=== PATIENT | male | born 1955 | race Two or more races ===

== ENCOUNTER 2017-10-23 14:54 | Emergency (ER) | payer OTHER ==
[~2017-10-23] VITALS: Ht 180.3 cm; Wt 88.5 kg
[~2017-10-23 14:54] MED LIST: ASPI-630 PO; CARV3.12 PO; GABA-586 PO; GLYB5TAB3 PO; LISI-338 PO; METF10003 PO; SIMV20TA PO
[2017-10-23 15:50] VITALS: BP 154/80
--- NOTE | 2017-10-23 16:12 | PHYS DOC ---
Past Medical History Past Medical History: Diabetes-Type II, High Cholesterol, Heart Disease, [place] Additional Past Medical Histor: Neuropathy Past Surgical History: Coronary Bypass Surgery Alcohol Use: None Drug Use: None Adult General Chief Complaint Chief Complaint: LOWER EXT PAIN HPI HPI Patient is a 61 year old M who presents with bilateral leg pain with exertion for months. Patient reports his pain is worsening. He gets pain after walking only about 100 ft. He rests and the pain resolves completely. When he walks again, the pain returns. He reports he is seen at the [facility] in [place]. They started him on a medication called pentoxifylline several months ago. He reports no improvement with medications. He states he is having trouble working d/t pain. He denies cp or sob. Hx of DM and HTN. Review of Systems Review of Systems Constitutional: Denies fever or chills [] Respiratory: Denies cough or shortness of breath [] Cardiovascular: Denies chest pain Musculoskeletal: Denies back pain. Bilateral leg pain when walking Integument: Denies rash or skin lesions [] Neurologic: Denies headache, focal weakness. Bilateral numbness to the great toe on both feet All other systems were reviewed and found to be within normal limits, except as documented in this note. Allergies Allergies Allergies Coded Allergies Type Severity Reaction Last Updated Verified No Known Drug Allergies 01/02/15 No Physical Exam Physical Exam Constitutional: Well developed, well nourished, no acute distress, non-toxic appearance. [] HENT: Normocephalic, atraumatic Neck: Normal range of motion, no tenderness, supple, no stridor. [] Cardiovascular:Heart rate regular rhythm, no murmur [] Lungs & Thorax: Bilateral breath sounds clear to auscultation [] Skin: Warm, dry, no erythema, no rash. [] Extremities: No tenderness, ROM intact, no edema. [] Neurologic: Alert and oriented X 3, normal motor function, no focal deficits noted. [] Psychologic: Affect normal, judgement normal, mood normal. [] Current Patient Data Vital Signs Vital Signs Date Time Temp Pulse Resp B/P (MAP) Pulse Ox O2 Delivery O2 Flow Rate FiO2 10/23/17 15:50 98.5 95 16 154/80 (104) 98 Room Air 98.5 EKG EKG [] Radiology/Procedures Radiology/Procedures [] Course & Med Decision Making Course & Med Decision Making Pertinent Labs and Imaging studies reviewed. (See chart for details) No indication for acute evaluation at this time. Patient needs referral to cardiology for intermittent claudication. d/w Dr. Macdonald, happy to see patient in the clinic for evaluation. Plan: appt with Dr. Macdonald on Thu10/28/17 at 10:15am, return precautions reviewed Dragchristin Disclaimer Dragon Disclaimer This electronic medical record was generated, in whole or in part, using a voice recognition dictation system. Departure Departure Impression: Primary Impression: Leg pain, bilateral Disposition: 01 HOME, SELF-CARE Condition: GOOD Referrals: KWAME MACDONALD MD Patient Instructions: Intermittent Claudication Additional Instructions: You have an appointment scheduled with Dr. Macdonald at 10:15am on ThursdayOctober 28. FRANK THAKKAR APRN Oct 23, 2017 16:12
== END 2017-10-23 16:21 | disposition home or self-care (01) ==
LOC: ER 14:54
DX: M79.605 Pain in left leg (principal); M79.604 Pain in right leg; R20.0 Anesthesia of skin; E78.00 Pure hypercholesterolemia, unspecified; E11.40 Type 2 diabetes mellitus with diabetic neuropathy, unspecified; I51.9 Heart disease, unspecified; I25.2 Old myocardial infarction; Z95.1 Presence of aortocoronary bypass graft
CPT/HCPCS: 99281

== ENCOUNTER 2017-11-05 06:21 | Outpatient (CLI) | payer OTHER ==
[2017-11-05] VITALS (14 sets, daily range): BP systolic 107–147; BP diastolic 63–79
[~2017-11-05] VITALS: Ht 182.9 cm; Wt 90.7 kg
[~2017-11-05 06:21] MED LIST changes: -METF10003 PO; +METF10007 PO
[2017-11-05] MEDS ORDERED: PENT400T4 PO (06:50)
[2017-11-05] MEDS ORDERED: GLIP10TA13 PO (06:50)
[2017-11-05] MEDS ORDERED: SITA1TAB11 PO (06:50)
[2017-11-05] MEDS ORDERED: DULO30CA2 PO (06:50)
[2017-11-05] MEDS ORDERED: LISI10TA2 PO (06:51)
[2017-11-05] MEDS ORDERED: IV NORMAL SALINE 1000ML BAG 1,000 ML IV SCH (07:00)
[2017-11-05] MEDS ORDERED: LIDOCAINE 1% PF 30 ML VIAL. ONE (07:11)
[2017-11-05] MEDS ORDERED: IODIXANOL 320 MG/ML 100 ML VIAL. ONE (07:11)
[2017-11-05 07:14] LABS: HEMATOCRIT 42.4 % (39.0-53.0); HEMOGLOBIN 14.4 g/dL (13.0-17.5); RED BLOOD COUNT 4.8 x10^6/uL (4.30-5.70); RED CELL DISTRIBUTION WIDTH 14.1 % (11.5-14.5); WHITE BLOOD COUNT 7.2 x10^3/uL (4.0-11.0)
[2017-11-05 07:24] LABS: CALCIUM 8.6 mg/dL (8.5-10.1); CREATININE 1.1 mg/dL (0.7-1.3); GFR 68.5; POTASSIUM 4.8 mmol/L (3.5-5.1)
[2017-11-05 07:33] LABS: PROTHROMBIN TIME PATIENT 12.8 SEC (11.7-14.0)
[2017-11-05] MEDS ORDERED: MIDAZOLAM HCL/PF 2 MG/2 ML VIAL. ONE (08:16)
[2017-11-05] MEDS ORDERED: fentaNYL PF VIAL 100 MCG/2 ML VIAL ONE (08:16)
[2017-11-05] MEDS ORDERED: CONTRAST GIVEN. MC PRN (08:45)
[2017-11-05] MEDS ORDERED: fentaNYL PF VIAL 100 MCG/2 ML VIAL IV ONE (08:45)
[2017-11-05] MEDS ORDERED: LIDOCAINE 1% PF 30 ML VIAL. INJ ONE (08:45)
[2017-11-05] MEDS ORDERED: MIDAZOLAM HCL/PF 2 MG/2 ML VIAL. IV ONE (08:45)
[2017-11-05] MEDS ORDERED: IODIXANOL 320 MG/ML 100 ML VIAL. IART ONE (08:45)
[2017-11-05] MEDS ORDERED: HEPARIN for IV BOLUS 10,000 UNIT/10 ML VIAL. ONE (08:48)
[2017-11-05] MEDS ORDERED: HEPARIN for IV BOLUS 10,000 UNIT/10 ML VIAL. IV ONE (09:15)
--- NOTE | 2017-11-05 10:31 | CARD ---
MR#: [id number] Date of Study: 11/05/2017 Ordering Physician: KWAME MACDONALD, Referring Physician: KWAME MACDONALD, Tech: RT Tish (R) APPROVED REPORT Technologist: RT Tish (R) Nurse: Krista Anton RN Procedure(s) performed: 60 MINS SEDATION Aortogram with bilateral femoral run-off HISTORY : The patient is a 61 year-old femalemale with a history of . INDICATION The indication(s) include : significant bilateral claudication (left greater than right) that is life style limting. . PROCEDURE NARRATIVE After appropriate informed consent, the patient was brought to the clay processing labourer and placed in the supine position. Preprocedural timeout was completed and confirmed the right patient and procedure. The bila teral groins were prepped and draped in usual sterile fashion. Moderate sedation acheived with Fentan yl and Versed. The patient received 2000 units of Heparin for anticoagulation. Access: Under lidocaine local anesthesia, a 5Fr introducer sheath was placed in the RCFA via the vonnie fied seldinger technique with a J-tipped guidewire and an 18g needle. Diagnostic angiography was then performed using a 5Fr Omniflush catheter with digital subtraction angiography. Next, the contralater al (LCFA) was accessed with the aid of the Omniflush catheter and a J-tipped guidewire. The omniflush was then exchanged for a long angled glide catheter which was then placed in the RCFA. Repeat left l ower extremity with DSA was performed. Subsequently, the glidecatheter was used to do a pullback luna uver on the YAHIR stenosis. No significant stenosis was identified at the levels of the common iliac a rteries and the left internal iliac artery. FINDINGS: AO: 140/80 AORTA: No significant disease. RCIA: No significant disease. REIA: No significant disease. RIIA: has a proximal 70% stenosis. This is the dominant supply of the right lower extremity as it exi ts the pelvis and supplies the territory of the SFA and connects to the popliteal artery. RCFA: No significant disease. RSFA: No significant disease. The vessel is hypoplastic and terminates at the level of the adductor c anal. RPOP: No significant disease. RAT: Occluded. RTP trunk: Mild irregularities of up to 30%. RPT: No significant disease. RPER: No significant disease. LCIA: No significant disease. LIIA: Has a proximal 50% eccentric stenosis. This is the main arterial supply to the lower extremity and exits the pelvis and connects to the popliteal artery. There is a 100% MANAGER CORPORATE RESPONSIBILITY involving the vessel p rior to the popliteal connection. YAHIR: No significant disease. LCFA: No significant disease. LSFA: No significant disease. This vessel is hypoplastic and gives geniculate level collaterals to th e popliteal artery. LPOP: No significant disease. LTP: Moderate 50% stenosis. LPER: No significant disease. LPT: No significant disease. LAT: Occluded proximally. At case completion, the right sided sheath was removed via manual compression. The patient tolerated the procedure well and there were no immediate complications. Conclusion 1. 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 Anatomical variant with the internal iliac artery providing the major arterial supply to the legs bilaterally. The SFA is severely hypoplastic. 3. 100% MANAGER CORPORATE RESPONSIBILITY of the L internal iliac artery (SFA) in the mid thigh with collaterals from the hypoplast ic LSFA with reconstitution at the level of P2. Recommendations 1. Vascular surgery evaluation for bypass of the left "SFA" 2. Plan for staged PVI of the right internal iliac artery via endovascular techniques. 3. Discussed with Dr. Seaman. Signed by : Kwame Macdonald, Electronically Approved : 11/05/2017 10:30:37
== END 2017-11-05 14:00 | disposition home or self-care (01) ==
LOC: CCL 06:21
PROVIDERS: ATTEND Internal Medicine Cardiovascular Disease
DX: I70.213 Atherosclerosis of native arteries of extremities with intermittent claudication, bilateral legs (principal); Z79.01 Long term (current) use of anticoagulants
CPT/HCPCS: 36246; 36415; 75630; 80048; 85027; 85610; 85730; 99152; 99153; C1769; J1644; J2250; J3010; J7030; Q9967

== ENCOUNTER 2017-12-26 10:25 | Emergency (ER) | payer SELFPAY ==
[~2017-12-26] VITALS: Ht 175.3 cm; Wt 90.3 kg
[~2017-12-26 10:25] MED LIST changes: +DULO30CA2 PO; +GLIP10TA13 PO; +LISI10TA2 PO; +PENT400T4 PO; +SITA1TAB11 PO
[2017-12-26] MEDS ORDERED: CLIN150C14 PO (11:02)
[2017-12-26] MEDS ORDERED: NEOMY/BACITR/POLYMYXIN OINT PACKET. TP ONE (11:15)
[2017-12-26] MEDS ORDERED: CLINDAMYCIN HCL 150 MG CAPSULE. PO ONE (11:30)
--- NOTE | 2017-12-26 11:30 | PHYS DOC ---
Past Medical History Past Medical History: Diabetes-Type II, High Cholesterol, Heart Disease, [place] Additional Past Medical Histor: Neuropathy Past Surgical History: Coronary Bypass Surgery Additional Past Surgical Histo: FEMORAL POPITEAL BYPASS Alcohol Use: None Drug Use: None Adult General Chief Complaint Chief Complaint: POST-OP PROBLEM HPI HPI Patient is a 62 year old male who presents with post-op complication. The patient underwent a femoral popliteal bypass on Dec 04. He has been recovering well. He presents to the ER today however with some drainage and redness at the surgical site in the left groin. Patient denies numbness, tingling, or cold sensation in that extremity. He hasn't had a fever or chills. He does not complain of pain. The wound on the leg and the left extremity is well-healing according to the patient. Surgery completed by Dr. Rockwell. Review of Systems Review of Systems Constitutional: Denies fever or chills Eyes: Denies Respiratory: Denies cough Cardiovascular: No additional information not addressed in HPI GI: Denies abdominal pain Musculoskeletal: Denies back pain Integument: Denies rash or skin lesions Neurologic: Denies headache All other systems were reviewed and found to be within normal limits, except as documented in this note. Current Medications Current Medications Current Medications Medications (Trade) Dose Ordered Sig/Keny Start Time Stop Time Status Last Admin Dose Admin Clindamycin HCl (Cleocin) 600 mg 1X ONCE 12/26/17 11:30 12/26/17 11:31 DC 12/26/17 11:29 600 MG Neomycin/ Polymyxin/ Bacitracin (Triple Antibiotic Ointment) 2 pkt 1X ONCE 12/26/17 11:15 12/26/17 11:16 DC 12/26/17 11:15 2 PKT Allergies Allergies Allergies Coded Allergies Type Severity Reaction Last Updated Verified No Known Drug Allergies 11/30/17 No Physical Exam Physical Exam Constitutional: Well developed, well nourished, no acute distress, non-toxic appearance HENT: Normocephalic Neck: Normal range of motion Cardiovascular:Heart rate regular rhythm, no murmur Lungs & Thorax: Bilateral breath sounds clear to auscultation Abdomen: Bowel sounds normal, soft, no tenderness Skin: Warm, dry, no erythema, no rash Extremities: surgical incision on medial left leg is well-appearing. wound edges are well-approximated. no local swelling, erythema, drainage. Incision in left groin is mildly erythematous. there is about 1 cm area of dehiscence at the proximal end of the incision with some purulent drainage overlying granulation tissue. the rest of the incision is erythematous and surrounding skin, but no palpable fluctuance. 2+ pulses in femoral, dorsalis pedis. Skin with brisk capillary refill and sensation to light touch intact. Compartments of the leg are soft. Neurologic: Alert and oriented X 3 Psychologic: Affect normal Current Patient Data Vital Signs Vital Signs Date Time Temp Pulse Resp B/P (MAP) Pulse Ox O2 Delivery O2 Flow Rate FiO2 12/26/17 11:40 80 16 158/80 (106) 100 Room Air 12/26/17 10:42 97.7 97.7 EKG EKG [] Radiology/Procedures Radiology/Procedures [] Course & Med Decision Making Course & Med Decision Making Pertinent Labs and Imaging studies reviewed. (See chart for details) Patient is evaluated for postoperative complication of an incision in the left groin. Examination of the incision as documented above is suspicious for local incisional infection. Patient does not have a fever. His vital signs are normal. He is nontoxic. He denies any other complaints. There is no drainable fluid collection on examination today. In the ER, a swab is taken for culture. The patient is given clindamycin. Wound is dressed with Neosporin and gauze. I did discuss this patient with the vascular surgeon on-call and these were the recommendations. The patient will contact their office on Thursday and will have an expedited appointment. I advised patient to come back to the ER over the weekend if his symptoms severely worsen. Dragon Disclaimer Dragon Disclaimer This electronic medical record was generated, in whole or in part, using a voice recognition dictation system. Departure Departure Impression: Primary Impression: Superficial incisional infection of surgical site Disposition: HOME, SELF-CARE Condition: GOOD Referrals: NO PCP (PCP) TOPHER ROCKWELL DO Patient Instructions: Wound Infection, [id number], Wound Dehiscence, Easy-to- Read Additional Instructions: You have a minor infection of your surgical incision. Take the antibiotics as directed. Today, we made contact with Dr. Maurice's partner, Dr. Zamudio, who recommended you call the office Thursday and they will expedite your appointment. If your wound becomes severely worse prior to Thursday, return to the ER. Keep the wound covered and apply antibacterial ointment twice daily. Scripts Clindamycin Hcl (CLINDAMYCIN HCL) 150 Mg Capsule 1 CAP PO QID, #40 CAP Prov: TAMMIE VALDEZ DO 12/26/17 TAMMIE VALDEZ DO Dec 26, 2017 11:30
[2017-12-26 11:40] VITALS: BP 158/80
== END 2017-12-26 11:28 | disposition home or self-care (01) ==
LOC: ER 10:25
DX: T81.41XA Infection following a procedure, superficial incisional surgical site, initial encounter (principal); L53.8 Other specified erythematous conditions; E78.00 Pure hypercholesterolemia, unspecified; E11.40 Type 2 diabetes mellitus with diabetic neuropathy, unspecified; I25.2 Old myocardial infarction; Z95.1 Presence of aortocoronary bypass graft
CPT/HCPCS: 87071; 87075; 99284

== ENCOUNTER 2018-08-30 09:50 | Observation (INO) | payer BC ==
[~2018-08-30] VITALS: Ht 177.8 cm; Wt 88.5 kg
[2018-08-30] VITALS (12 sets, daily range): BP systolic 119–151; BP diastolic 60–77
[~2018-08-30 09:50] MED LIST changes: +CLIN150C14 PO; -GABA-586 PO; +GABA300C18 PO; -PENT400T4 PO; +PENT400T7 PO
[2018-08-30] MEDS ORDERED: MUPI22OI2 TP (10:15)
[2018-08-30] MEDS ORDERED: SILD100T PO (10:15)
[2018-08-30] MEDS ORDERED: NYST15PO9 TP (10:15)
[2018-08-30] MEDS ORDERED: GABA800T5 PO (10:15)
[2018-08-30] MEDS ORDERED: LISI-334 PO (10:15)
[2018-08-30] MEDS ORDERED: ATORVASTATIN CA80 MG PO (10:15)
[2018-08-30 10:31] LABS: CALCIUM 8.6 mg/dL (8.5-10.1); CREATININE 1.8 mg/dL (0.7-1.3); GFR 38.7; POTASSIUM 4.5 mmol/L (3.5-5.1)
[2018-08-30 10:37] LABS: ALBUMIN 3.4 g/dL (3.4-5.0); ALBUMIN/GLOBULIN RATIO 0.9 (1.0-1.7); TOTAL BILIRUBIN 0.5 mg/dL (0.2-1.0); TOTAL PROTEIN 7.2 g/dL (6.4-8.2)
[2018-08-30 10:41] LABS: BASO # 0.1 x10^3/uL (0.0-0.2); BASO % 1 % (0-3); EOS # 0.2 x10^3/uL (0.0-0.7); EOS % 3 % (0-3); HEMATOCRIT 41.6 % (39.0-53.0); HEMOGLOBIN 13.8 g/dL (13.0-17.5); LYMPH # 2.3 x10^3/uL (1.0-4.8); LYMPH % 30 % (24-48); MEAN CORPUSCULAR HEMOGLOBIN 29 pg (25-35); MEAN CORPUSCULAR HGB CONC 33 g/dL (31-37); MEAN CORPUSCULAR VOLUME 87 fL (79-100); MONO # 0.7 x10^3/uL (0.0-1.1); MONO % 9 % (0-9); NEUT # 4.6 x10^3uL (1.8-7.7); NEUT % 58 % (31-73); PLATELET COUNT 255 x10^3/uL (140-400); PROTHROMBIN TIME PATIENT 12.3 SEC (11.7-14.0); RED BLOOD COUNT 4.76 x10^6/uL (4.30-5.70); WHITE BLOOD COUNT 7.9 x10^3/uL (4.0-11.0)
[2018-08-30] MEDS ORDERED: IV NORMAL SALINE 1000ML BAG 1,000 ML IV ONE (11:15)
[2018-08-30] MEDS ORDERED: LIDOCAINE 1% Multi-Dose 20 ML VIAL. ONE (12:20)
[2018-08-30] MEDS ORDERED: IODIXANOL 320 MG/ML 100 ML VIAL. ONE (12:20)
[2018-08-30] MEDS ORDERED: fentaNYL PF VIAL 100 MCG/2 ML VIAL ONE (13:42)
[2018-08-30] MEDS ORDERED: MIDAZOLAM HCL/PF 5 MG/5 ML VIAL. ONE (13:42)
[2018-08-30] MEDS ORDERED: HEPARIN for IV BOLUS 10,000 UNIT/10 ML VIAL. ONE (13:43)
[2018-08-30] MEDS ORDERED: MIDAZOLAM HCL/PF 5 MG/5 ML VIAL. IV ONE (14:00)
[2018-08-30] MEDS ORDERED: LIDOCAINE 1% Multi-Dose 20 ML VIAL. INJ ONE (14:00)
[2018-08-30] MEDS ORDERED: IODIXANOL 320 MG/ML 100 ML VIAL. IART ONE (14:00)
[2018-08-30] MEDS ORDERED: fentaNYL PF VIAL 100 MCG/2 ML VIAL IV ONE (14:00)
[2018-08-30] MEDS ORDERED: HEPARIN for IV BOLUS 10,000 UNIT/10 ML VIAL. IV ONE (14:45)
[2018-08-30] MEDS ORDERED: CLOPIDOGREL BISULFATE 75 MG TABLET ONE (15:19)
[2018-08-30] MEDS ORDERED: CLOPIDOGREL BISULFATE 75 MG TABLET PO ONE (15:30)
--- NOTE | 2018-08-30 16:27 | NUR ---
Received report from LORENZA Evans laborer rags. Pt arrived to the unit at approx 1550. Checked the insertion site with the hand-off nurse, dressing clean, dry, and intact. Checked pedis pulses using a doppler, bilat pulses present. Cap refill < 3 seconds. Bilat lung sounds clear. Heartbeat regular, S1, S2. Skin clean, dry, intact. Pt reporting 0/10 pain. Pt was educated to remain flat with legs extended. Will continue to monitor pt.
--- NOTE | 2018-08-30 16:59 | PDOC ---
BRIEF OPERATIVE NOTE Date: Aug 30, 2018 Pre-Op Diagnosis Atherosclerosis with left lower extremity claudication Post-Op Diagnosis Same Procedure Performed CO2 angiogram with selective left lower extremity CO2 angiogram next Percutaneous balloon angioplasty of the left mid bypass graft using a drug- eluting balloon Ultrasound-guided access of the right common femoral artery Right common femoral artery Abebe close Surgeon Topher Reyes DO, FACS, RPVI Anesthesia Type: Local, Conscious Sedation Blood Loss 2mL Findings See dictation Complications None TOPHER REYES DO Aug 30, 2018 16:59
--- NOTE | 2018-08-30 17:11 | OP ---
DATE OF SURGERY: 08/30/2018 VASCULAR SURGERY OPERATIVE REPORT ATTENDING SURGEON: Arnulfo Rockwell DO PREOPERATIVE DIAGNOSIS: Atherosclerosis with left lower extremity claudication. POSTOPERATIVE DIAGNOSIS: Atherosclerosis with left lower extremity claudication. PROCEDURES: 1. Percutaneous endovascular balloon angioplasty of the left mid fem-pop bypass vein graft using a 6 x 40 Medtronic IN.PACT Admiral drug-eluting balloon (CPT code 37783). 2. CO2 abdominal aortogram (CPT code 89009-39). 3. Selective CO2 angiogram of the left lower extremity (CPT code 34623-33). 4. Ultrasound-guided access of the right common femoral artery (CPT code 38322-17). 5. Right common femoral artery StarClose. ANESTHESIA: Local with moderate sedation. SPECIMENS: None. COMPLICATIONS: None. TOTAL CONTRAST ADMINISTERED: 10 mL, the remainder was CO2. PREOPERATIVE INDICATIONS: The patient is a very pleasant 62-year-old male, who I had performed a left femoral to below knee popliteal artery bypass using in situ saphenous vein graft. The patient presented for routine followup and was found to have a high-grade stenosis of the mid bypass graft. The patient had preserved ALMA despite the stenotic area, but I felt that for graft preservation, it would be warranted to balloon this area. The patient was consented for angiography and he understood all risks, benefits, and alternatives prior to proceeding. OPERATIVE PROCEDURE: The patient was brought to the catheterization suite and placed in the supine position. After establishing adequate sedation, the right groin was prepped and draped in sterile fashion. Next, a timeout procedure was performed. It was confirmed that the patient's creatinine level was elevated at 1.8 and we had planned to use carbon dioxide for the majority of the procedure and images. At this point in time, using a sterile ultrasound probe, the right common femoral artery was directly visualized and then 1% lidocaine was infiltrated underneath the skin. Next, a micropuncture needle was used to access the right common femoral artery under direct ultrasound guidance. Following this, a microwire was inserted under fluoro guidance. Next, a small skin incision was made, needle was removed and a MicroSheath was inserted. Next, an 0.035 J-wire was inserted into the abdominal aorta under fluoro guidance. Following this, the MicroSheath was removed and a 5-[place] sheath was inserted and appropriately flushed. Next, the UF catheter was inserted into the abdominal aorta up to the level of L1 and then a CO2 abdominal aortogram was performed. The abdominal aortogram findings are as follows: The proximal, mid and distal aorta is widely patent. The right and left common iliac arteries are widely patent. There is a high takeoff of the left hypogastric artery just distal to the aortic bifurcation, which is widely patent. The external iliac artery is also widely patent down to the common femoral artery. Common femoral artery is widely patent and I can easily see the takeoff of the bypass graft. The left lower extremity arterial findings are as follows: The left common femoral artery is widely patent. The left profunda femoral artery is widely patent. The origin of the left bypass graft is patent at the common femoral artery. The bypass graft is widely patent through its proximal segment and there is a high-grade stenosis in its mid segment likely from a retained valve body. Beyond this, the vein graft is widely patent down to the below knee anastomosis, which is also widely patent. 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 The below knee runoff vessels are preserved and patent. At this point in time, our catheter was used to select the common iliac artery on the left and ultimately gain access to the external iliac artery. Following this, our 5-[place] sheath was exchanged for a 6-[place] straight destination sheath, which was positioned up and over the bifurcation. Next, the patient was heparinized per weight-based protocol. Following this, I was easily able to gain access to the proximal portion of the bypass graft with wire access. Next, I carefully crossed the very stenotic area when in the mid bypass graft and confirmed a true lumen access. Next, the stenotic area was predilated using a 4 x 40 balloon and then using a roadmap, I treated the lesion with a 6 x 40 drug-eluting balloon. This was inflated to nominal pressure and left in place for 3 minutes. Following this, completion angiogram revealed markedly improved flow through the segment. There was still some scar from the valve body, but brisk flow through the segment after ballooning. This was widely patent and there was no further waste on our balloon. I did decide to re-balloon this area with a 7 x 40 balloon just to ensure that I had adequately treated the area and indeed there was no waste on the 7 mm balloon after a nominal inflation. Satisfied with this result, our wires and catheters were withdrawn and the sheath was withdrawn into the right iliac system. The vessel was determined safe for closure based on CO2. We did inject a total of 10 mL of normal contrast, but the remainder of the pictures were performed using carbon dioxide gas. Next, our sheath was removed and the StarClose device was inserted and deployed successfully. The patient had excellent hemostasis and was transferred to the post-catheterization area in stable condition. ARNULFO ROCKWELL DO DR: JC/ny JOB#: [id number] / [id number]
[2018-08-30] MEDS ORDERED: CLOP75TA PO (18:28)
--- NOTE | 2018-08-30 18:41 | PDOC1 ---
History and Physical Date of Admission Date of Admission DATE: 08/30/18 TIME: 18:36 Identification/Chief Complaint Chief Complaint CTA runoff observation Source Source: Chart review, Patient History of Present Illness History of Present Illness 62 year old with PVD admitted for observation following CTA runoff.Has hx Atherosclerosis with left lower extremity claudication and underwent Percutaneous endovascular balloon angioplasty of the left mid fem-pop bypass vein graft. patient seen on floor with no complaints. no bleeding at catheter site. started on plavix and all home meds resumed. Past Medical History Cardiovascular: CAD, HTN, Other Pulmonary: No pertinent hx CENTRAL NERVOUS SYSTEM: Periperal neuropathy GI: GERD Heme/Onc: No pertinent hx Hepatobiliary: No pertinent hx Psych: No pertinent hx Musculoskeletal: Other Rheumatologic: No pertinent hx Infectious disease: No pertinent hx Renal/: No pertinent hx Endocrine: Diabetes Past Surgical History Past Surgical History: CABG Family History Family History: Coronary Artery Disease Social History ALCOHOL: none Drugs: None Current Medications Current Medications Current Medications Sodium Chloride 1,000 ml @ 100 mls/hr 1X ONCE IV Last administered on 08/30/18at 11:00; Start 08/30/18 at 11:15; Stop 08/30/18 at 21:14 Iodixanol (Visipaque 320) 100 ml STK-MED ONCE .ROUTE ; Start 08/30/18 at 12:20; Stop 08/30/18 at 12:21; Status DC Lidocaine HCl (Lidocaine 1% 20ml Vial) 20 ml STK-MED ONCE .ROUTE ; Start 08/30/18 at 12:20; Stop 08/30/18 at 12:21; Status DC Heparin Sodium/ Sodium Chloride 500 ml @ As Directed STK-MED ONCE .ROUTE ; Start 08/30/18 at 12:20; Stop 08/30/18 at 12:21; Status DC Midazolam HCl (Versed) 5 mg STK-MED ONCE .ROUTE ; Start 08/30/18 at 13:42; Stop 08/30/18 at 13:43; Status DC Fentanyl Citrate (Fentanyl 2ml Vial) 100 mcg STK-MED ONCE .ROUTE ; Start 08/30/18 at 13:42; Stop 08/30/18 at 13:43; Status DC Heparin Sodium (Porcine) (Heparin Sodium) 10,000 unit STK-MED ONCE .ROUTE ; Start 08/30/18 at 13:43; Stop 08/30/18 at 13:44; Status DC Heparin Sodium/ Sodium Chloride (HEPARIN for ARTERIAL LINE FLUSH) 1,000 unit 1X ONCE IART Last administered on 08/30/18at 15:31; Start 08/30/18 at 14:00; Stop 08/30/18 at 14:01; Status DC Midazolam HCl (Versed) 5 mg 1X ONCE IV Last administered on 08/30/18at 15:32; Start 08/30/18 at 14:00; Stop 08/30/18 at 14:01; Status DC Fentanyl Citrate (Fentanyl 2ml Vial) 100 mcg 1X ONCE IV Last administered on 08/30/18at 15:32; Start 08/30/18 at 14:00; Stop 08/30/18 at 14:01; Status DC Iodixanol (Visipaque 320) 100 ml 1X ONCE IART Last administered on 08/30/18at 15:31; Start 08/30/18 at 14:00; Stop 08/30/18 at 14:01; Status DC Lidocaine HCl (Lidocaine 1% 20ml Vial) 20 ml 1X ONCE INJ Last administered on 08/30/18at 15:31; Start 08/30/18 at 14:00; Stop 08/30/18 at 14:01; Status DC Heparin Sodium/ Sodium Chloride 500 ml @ As Directed STK-MED ONCE .ROUTE ; Start 08/30/18 at 14:21; Stop 08/30/18 at 14:22; Status DC Heparin Sodium (Porcine) (Heparin Sodium) 8,000 unit 1X ONCE IV Last administered on 08/30/18at 15:35; Start 08/30/18 at 14:45; Stop 08/30/18 at 14 :46; Status DC Clopidogrel Bisulfate (Plavix) 300 mg 1X ONCE PO Last administered on 08/30/18at 15:32; Start 08/30/18 at 15:30; Stop 08/30/18 at 15:31; Status DC Clopidogrel Bisulfate (Plavix) 75 mg STK-MED ONCE .ROUTE ; Start 08/30/18 at 15:19; Stop 08/30/18 at 15:20; Status DC Clopidogrel Bisulfate (Plavix) 75 mg DAILYWBKFT PO ; Start 08/31/18 at 08:00 Active Scripts Active Clopidogrel (Clopidogrel Bisulfate) 75 Mg Tablet 75 Mg PO DAILYWBKFT 30 Days Reported Viagra (Sildenafil Citrate) 100 Mg Tablet 1 Tab PO PRN DAILY Nystatin 15 Gm Powder 1 [place] TP BID Mupirocin Ointment (Mupirocin) 22 Gm Oint...g. 1 [place] TP DAILY Lisinopril 20 Mg Tablet 1 Tab PO DAILY Gabapentin 800 Mg Tablet 800 Mg PO Q8HRS Atorvastatin Calcium 80 Mg Tablet 1 Tab PO DAILY Janumet 50-1,000 Mg Tablet (Sitagliptin Phos/Metformin Hcl) 1 Each Tablet 1 Tab PO BID Pentoxifylline 400 Mg Tablet.er 400 Mg PO TID Cymbalta (Duloxetine Hcl) 30 Mg Capsule.dr 30 Mg PO QHS Glipizide 10 Mg Tablet 1 Tab PO BID Aspirin 81 Mg Tab.chew 1 Tab PO DAILY Allergies Allergies: Coded Allergies: No Known Drug Allergies (Unverified , 11/30/17) ROS Review of System CONSTITUTIONAL: No fever or chills EYES: No recent changes SKIN: No rash or itching CARDIOVASCULAR: No chest pain, syncope, palpitations, or edema RESPIRATORY: No SOB or cough GASTROINTESTINAL: No nausea, vomiting or abdominal pain NEUROLOGICAL: No headaches or weakness ENDOCRINE: No cold or heat intolerance GENITOURINARY: No urgency or frequency of urination MUSCULOSKELETAL: No back pain or joint pain LYMPHATICS: No enlarged lymph nodes PSYCHIATRIC: No anxiety or depression Physical Exam Physical Exam GENERAL: No apparent distress. Alert and oriented. HEENT: Head normocephalic, atraumatic. NECK: Supple LUNGS: Clear to auscultation. HEART: RRR, S1, S2 present, pulses intact ABDOMEN: Soft, positive bowel sounds. EXTREMITIES: No cyanosis or edema. NEUROLOGIC: Normal speech, normal tone PSYCHIATRIC: Normal affect, normal mood. SKIN: No ulceration. Vitals Vitals Vital Signs Date Time Temp Pulse Resp B/P (MAP) Pulse Ox O2 Delivery O2 Flow Rate FiO2 08/30/18 18:15 77 119/68 (85) 96 08/30/18 16:02 Room Air 08/30/18 15:38 18 08/30/18 11:01 97.8 97.8 Labs Labs Laboratory Tests Test 08/30/18 10:15 08/30/18 17:31 White Blood Count 7.9 x10^3/uL (4.0-11.0) Red Blood Count 4.76 x10^6/uL (4.30-5.70) Hemoglobin 13.8 g/dL (13.0-17.5) Hematocrit 41.6 % (39.0-53.0) Mean Corpuscular Volume 87 fL (79-100) Mean Corpuscular Hemoglobin 29 pg (25-35) Mean Corpuscular Hemoglobin Concent 33 g/dL (31-37) Red Cell Distribution Width 15.0 % (11.5-14.5) Platelet Count 255 x10^3/uL (140-400) Neutrophils (%) (Auto) 58 % (31-73) Lymphocytes (%) (Auto) 30 % (24-48) Monocytes (%) (Auto) 9 % (0-9) Eosinophils (%) (Auto) 3 % (0-3) Basophils (%) (Auto) 1 % (0-3) Neutrophils # (Auto) 4.6 x10^3uL (1.8-7.7) Lymphocytes # (Auto) 2.3 x10^3/uL (1.0-4.8) Monocytes # (Auto) 0.7 x10^3/uL (0.0-1.1) Eosinophils # (Auto) 0.2 x10^3/uL (0.0-0.7) Basophils # (Auto) 0.1 x10^3/uL (0.0-0.2) Prothrombin Time 12.3 SEC (11.7-14.0) Prothromb Time International Ratio 0.9 (0.8-1.1) Sodium Level 136 mmol/L (136-145) Potassium Level 4.5 mmol/L (3.5-5.1) Chloride Level 101 mmol/L (98-107) Carbon Dioxide Level 25 mmol/L (21-32) Anion Gap 10 (6-14) Blood Urea Nitrogen 34 mg/dL (8-26) Creatinine 1.8 mg/dL (0.7-1.3) Estimated GFR (Cockcroft-Gault) 38.7 BUN/Creatinine Ratio 19 (6-20) Glucose Level 221 mg/dL (70-99) Calcium Level 8.6 mg/dL (8.5-10.1) Total Bilirubin 0.5 mg/dL (0.2-1.0) Aspartate Amino Transf (AST/SGOT) 12 U/L (15-37) Alanine Aminotransferase (ALT/SGPT) 14 U/L (16-63) Alkaline Phosphatase 128 U/L (46-116) Total Protein 7.2 g/dL (6.4-8.2) Albumin 3.4 g/dL (3.4-5.0) Albumin/Globulin Ratio 0.9 (1.0-1.7) Glucose (Fingerstick) 193 mg/dL (70-99) Laboratory Tests Test 08/30/18 10:15 08/30/18 17:31 White Blood Count 7.9 x10^3/uL (4.0-11.0) Red Blood Count 4.76 x10^6/uL (4.30-5.70) Hemoglobin 13.8 g/dL (13.0-17.5) Hematocrit 41.6 % (39.0-53.0) Mean Corpuscular Volume 87 fL (79-100) Mean Corpuscular Hemoglobin 29 pg (25-35) Mean Corpuscular Hemoglobin Concent 33 g/dL (31-37) Red Cell Distribution Width 15.0 % (11.5-14.5) Platelet Count 255 x10^3/uL (140-400) Neutrophils (%) (Auto) 58 % (31-73) Lymphocytes (%) (Auto) 30 % (24-48) Monocytes (%) (Auto) 9 % (0-9) Eosinophils (%) (Auto) 3 % (0-3) Basophils (%) (Auto) 1 % (0-3) Neutrophils # (Auto) 4.6 x10^3uL (1.8-7.7) Lymphocytes # (Auto) 2.3 x10^3/uL (1.0-4.8) Monocytes # (Auto) 0.7 x10^3/uL (0.0-1.1) Eosinophils # (Auto) 0.2 x10^3/uL (0.0-0.7) Basophils # (Auto) 0.1 x10^3/uL (0.0-0.2) Prothrombin Time 12.3 SEC (11.7-14.0) Prothromb Time International Ratio 0.9 (0.8-1.1) Sodium Level 136 mmol/L (136-145) Potassium Level 4.5 mmol/L (3.5-5.1) Chloride Level 101 mmol/L (98-107) Carbon Dioxide Level 25 mmol/L (21-32) Anion Gap 10 (6-14) Blood Urea Nitrogen 34 mg/dL (8-26) Creatinine 1.8 mg/dL (0.7-1.3) Estimated GFR (Cockcroft-Gault) 38.7 BUN/Creatinine Ratio 19 (6-20) Glucose Level 221 mg/dL (70-99) Calcium Level 8.6 mg/dL (8.5-10.1) Total Bilirubin 0.5 mg/dL (0.2-1.0) Aspartate Amino Transf (AST/SGOT) 12 U/L (15-37) Alanine Aminotransferase (ALT/SGPT) 14 U/L (16-63) Alkaline Phosphatase 128 U/L (46-116) Total Protein 7.2 g/dL (6.4-8.2) Albumin 3.4 g/dL (3.4-5.0) Albumin/Globulin Ratio 0.9 (1.0-1.7) Glucose (Fingerstick) 193 mg/dL (70-99) VTE Prophylaxis Ordered VTE Prophylaxis Devices: No (observation) VTE Pharmacological Prophylaxi: No Assessment/Plan Assessment/Plan A/P: Atherosclerosis with left lower extremity claudication s/p Percutaneous endovascular balloon angioplasty of the left mid fem-pop bypass vein graft using a 6 x 40 [employer] IN.PACT Admiral drug-eluting balloon, CO2 abdominal aortogram, Selective CO2 angiogram of the left lower extremity, Ultrasound- guided access of the right common femoral artery. Right common femoral artery Star[employer]. tolerated procedure well with no periprocedural bleeding. will be discharged on plavix for 30 days with follow scheduled in vasc clinic. all home meds resumed. ALEXANDRE MENDOZA MD Aug 30, 2018 18:41
--- NOTE | 2018-08-30 18:42 | PDOC3 ---
Discharge Summary Visit Information Date of Admission: Aug 30, 2018 Date of Discharge: Aug 30, 2018 Brief Hospital Course Allergies Allergies Coded Allergies Type Severity Reaction Last Updated Verified No Known Drug Allergies 11/30/17 No Vital Signs Vital Signs Date Time Temp Pulse Resp B/P (MAP) Pulse Ox O2 Delivery O2 Flow Rate FiO2 08/30/18 18:15 77 119/68 (85) 96 08/30/18 16:02 Room Air 08/30/18 15:38 18 08/30/18 11:01 97.8 97.8 Lab Results Laboratory Tests Test 08/30/18 10:15 08/30/18 17:31 White Blood Count 7.9 x10^3/uL (4.0-11.0) Red Blood Count 4.76 x10^6/uL (4.30-5.70) Hemoglobin 13.8 g/dL (13.0-17.5) Hematocrit 41.6 % (39.0-53.0) Mean Corpuscular Volume 87 fL (79-100) Mean Corpuscular Hemoglobin 29 pg (25-35) Mean Corpuscular Hemoglobin Concent 33 g/dL (31-37) Red Cell Distribution Width 15.0 % (11.5-14.5) Platelet Count 255 x10^3/uL (140-400) Neutrophils (%) (Auto) 58 % (31-73) Lymphocytes (%) (Auto) 30 % (24-48) Monocytes (%) (Auto) 9 % (0-9) Eosinophils (%) (Auto) 3 % (0-3) Basophils (%) (Auto) 1 % (0-3) Neutrophils # (Auto) 4.6 x10^3uL (1.8-7.7) Lymphocytes # (Auto) 2.3 x10^3/uL (1.0-4.8) Monocytes # (Auto) 0.7 x10^3/uL (0.0-1.1) Eosinophils # (Auto) 0.2 x10^3/uL (0.0-0.7) Basophils # (Auto) 0.1 x10^3/uL (0.0-0.2) Prothrombin Time 12.3 SEC (11.7-14.0) Prothromb Time International Ratio 0.9 (0.8-1.1) Sodium Level 136 mmol/L (136-145) Potassium Level 4.5 mmol/L (3.5-5.1) Chloride Level 101 mmol/L (98-107) Carbon Dioxide Level 25 mmol/L (21-32) Anion Gap 10 (6-14) Blood Urea Nitrogen 34 mg/dL (8-26) Creatinine 1.8 mg/dL (0.7-1.3) Estimated GFR (Cockcroft-Gault) 38.7 BUN/Creatinine Ratio 19 (6-20) Glucose Level 221 mg/dL (70-99) Calcium Level 8.6 mg/dL (8.5-10.1) Total Bilirubin 0.5 mg/dL (0.2-1.0) Aspartate Amino Transf (AST/SGOT) 12 U/L (15-37) Alanine Aminotransferase (ALT/SGPT) 14 U/L (16-63) Alkaline Phosphatase 128 U/L (46-116) Total Protein 7.2 g/dL (6.4-8.2) Albumin 3.4 g/dL (3.4-5.0) Albumin/Globulin Ratio 0.9 (1.0-1.7) Glucose (Fingerstick) 193 mg/dL (70-99) Laboratory Tests Test 08/30/18 10:15 08/30/18 17:31 White Blood Count 7.9 x10^3/uL (4.0-11.0) Red Blood Count 4.76 x10^6/uL (4.30-5.70) Hemoglobin 13.8 g/dL (13.0-17.5) Hematocrit 41.6 % (39.0-53.0) Mean Corpuscular Volume 87 fL (79-100) Mean Corpuscular Hemoglobin 29 pg (25-35) Mean Corpuscular Hemoglobin Concent 33 g/dL (31-37) Red Cell Distribution Width 15.0 % (11.5-14.5) Platelet Count 255 x10^3/uL (140-400) Neutrophils (%) (Auto) 58 % (31-73) Lymphocytes (%) (Auto) 30 % (24-48) Monocytes (%) (Auto) 9 % (0-9) Eosinophils (%) (Auto) 3 % (0-3) Basophils (%) (Auto) 1 % (0-3) Neutrophils # (Auto) 4.6 x10^3uL (1.8-7.7) Lymphocytes # (Auto) 2.3 x10^3/uL (1.0-4.8) Monocytes # (Auto) 0.7 x10^3/uL (0.0-1.1) Eosinophils # (Auto) 0.2 x10^3/uL (0.0-0.7) Basophils # (Auto) 0.1 x10^3/uL (0.0-0.2) Prothrombin Time 12.3 SEC (11.7-14.0) Prothromb Time International Ratio 0.9 (0.8-1.1) Sodium Level 136 mmol/L (136-145) Potassium Level 4.5 mmol/L (3.5-5.1) Chloride Level 101 mmol/L (98-107) Carbon Dioxide Level 25 mmol/L (21-32) Anion Gap 10 (6-14) Blood Urea Nitrogen 34 mg/dL (8-26) Creatinine 1.8 mg/dL (0.7-1.3) Estimated GFR (Cockcroft-Gault) 38.7 BUN/Creatinine Ratio 19 (6-20) Glucose Level 221 mg/dL (70-99) Calcium Level 8.6 mg/dL (8.5-10.1) Total Bilirubin 0.5 mg/dL (0.2-1.0) Aspartate Amino Transf (AST/SGOT) 12 U/L (15-37) Alanine Aminotransferase (ALT/SGPT) 14 U/L (16-63) Alkaline Phosphatase 128 U/L (46-116) Total Protein 7.2 g/dL (6.4-8.2) Albumin 3.4 g/dL (3.4-5.0) Albumin/Globulin Ratio 0.9 (1.0-1.7) Glucose (Fingerstick) 193 mg/dL (70-99) Brief Hospital Course Atherosclerosis with left lower extremity claudication s/p Percutaneous endovascular balloon angioplasty of the left mid fem-pop bypass vein graft using a 6 x 40 [employer] IN.PACT Admiral drug-eluting balloon, CO2 abdominal aortogram, Selective CO2 angiogram of the left lower extremity, Ultrasound-guided access of the right common femoral artery. Right common femoral artery StarClose. tolerated procedure well with no periprocedural bleeding. will be discharged on plavix for 30 days with follow scheduled in vasc clinic. all home meds resumed. Discharge Information Condition at Discharge: Stable Follow Up: Weeks (30 days with vasc sx clinic) Disposition/Orders: D/C to Home Scheduled Aspirin (Aspirin) 81 Mg Tab.chew, 1 TAB PO DAILY, #30 Ref 3 (Reported) Entered as Reported by: BERKLEY JAIMES on 01/02/15 1812 Last Action: Reviewed on 08/30/181014 by FOSTER SALGUERO Atorvastatin Calcium (Atorvastatin Calcium) 80 Mg Tablet, 1 TAB PO DAILY for Cholesterol, #30 Ref 5 (Reported) Entered as Reported by: FOSTER SALGUERO on 08/30/181014 Last Taken: Unknown Dose on 08/29/18 Last Action: New Order on 08/30/181014 by FOSTER SALGUERO Clopidogrel Bisulfate (Clopidogrel) 75 Mg Tablet, 75 MG PO DAILYWBKFT for pvd for 30 Days, #30 Prescribed by: ALEXANDRE MENDOZA MD on 08/30/188 Duloxetine Hcl (Cymbalta) 30 Mg Capsule.dr, 30 MG PO QHS, (Reported) Entered as Reported by: JOSÉ LUIS JOHNSON on 11/05/17 0650 Last Action: Reviewed on 08/30/181014 by FOSTER SALGUERO Gabapentin (Gabapentin) 800 Mg Tablet, 800 MG PO Q8HRS for NEUROGENIC PAIN, (Reported) Entered as Reported by: FOSTER SALGUERO on 08/30/18 101 Last Action: New Order on 08/30/181014 by FOSTER SALGUERO Glipizide (Glipizide) 10 Mg Tablet, 1 TAB PO BID, #180 Ref 3 (Reported) Entered as Reported by: JOSÉ LUIS JOHNSON on 11/05/17 0650 Last Action: Reviewed on 08/30/181014 by FOSTER SALGUERO Lisinopril (Lisinopril) 20 Mg Tablet, 1 TAB PO DAILY for HTN, #30 Ref 5 (Reported) Entered as Reported by: FOSTER SALGUERO on 08/30/18 101 Last Action: New Order on 08/30/181014 by FOSTER SALGUERO Mupirocin (Mupirocin Ointment) 22 Gm Oint...g., 1 [place] TP DAILY for WOUND CARE, #1 (Reported) Entered as Reported by: FOSTER SALGUERO on 08/30/181014 Last Action: New Order on 08/30/181014 by FOSTER SALGUERO Nystatin (Nystatin) 15 Gm Powder, 1 [place] TP BID for left groin, #1 (Reported) Entered as Reported by: FOSTER SALGUERO on 08/30/181014 Last Action: New Order on 08/30/181014 by FOSTER SALGUERO Pentoxifylline (Pentoxifylline) 400 Mg Tablet.er, 400 MG PO TID, (Reported) Entered as Reported by: JOSÉ LUIS JOHNSON on 11/05/17649 Last Action: Reviewed on 08/30/181014 by FOSTER SALGUERO Sildenafil Citrate (Viagra) 100 Mg Tablet, 1 TAB PO PRN DAILY for RX, #6 Ref 11 (Reported) Entered as Reported by: FOSTER SALGUERO on 08/30/181014 Last Action: New Order on 08/30/181014 by FOSTER SALGUERO Sitagliptin Phos/Metformin Hcl (Janumet 50-1,000 Mg Tablet) 1 Each Tablet, 1 TAB PO BID, #180 Ref 3 (Reported) Entered as Reported by: JOSÉ LUIS JOHNSON on 11/05/17649 Last Action: Reviewed on 08/30/181014 by ALEXANDRE LOCKHART MD Aug 30, 2018 18:42
--- NOTE | 2018-08-30 19:19 | NUR ---
Discharge Note: VITA VILLAGOMEZ DODSON Discharge instructions and discharge home medications reviewed with Patient and a copy given. All questions have been answered and understanding verbalized. The following instructions and handouts were given: patient visit, follow up information. Discontinued lines and drains: peripheral IV, tip intact. Patient discharged to home with self care via private vehicle. Patient left unit in stable condition with all personal belongings.
[2018-08-31] MEDS ORDERED: CLOPIDOGREL BISULFATE 75 MG TABLET PO SCH (08:00)
== END 2018-08-30 19:18 | disposition home or self-care (01) ==
LOC: CCL 09:50 → 5 NORTH 15:08
PROVIDERS: ADMIT Internal Medicine; ATTEND Surgery
DX: I70.212 Atherosclerosis of native arteries of extremities with intermittent claudication, left leg (principal); I25.10 Atherosclerotic heart disease of native coronary artery without angina pectoris; I10 Essential (primary) hypertension; E11.51 Type 2 diabetes mellitus with diabetic peripheral angiopathy without gangrene; K21.9 Gastro-esophageal reflux disease without esophagitis; Z95.1 Presence of aortocoronary bypass graft; Z82.49 Family history of ischemic heart disease and other diseases of the circulatory system; Z79.01 Long term (current) use of anticoagulants; Z79.899 Other long term (current) drug therapy; Z79.82 Long term (current) use of aspirin
CPT/HCPCS: 36415; 37224; 75625; 75710; 76937; 80053; 82962; 85025; 85610; 96374; 96375; C1760; C1769; C1885; C1892; C1894; C2623; G0269; G0378; G0379; J1644; J2250; J3010; J7030; Q9967; 99152; 99153; C1771

== ENCOUNTER 2019-02-09 11:05 | Emergency (ER) | payer BC ==
[~2019-02-09] VITALS: Ht 177.8 cm; Wt 88.5 kg
[~2019-02-09 11:05] MED LIST changes: +ATORVASTATIN CA80 MG PO; +CLOP75TA PO; +GABA800T5 PO; +LISI-334 PO; +MUPI22OI2 TP; +NYST15PO9 TP; +SILD100T PO
[2019-02-09 11:25] VITALS: BP 157/84
[2019-02-09] MEDS ORDERED: CHLO15MO2 SWSP (12:09)
[2019-02-09] MEDS ORDERED: CEPH500C PO (12:09)
[2019-02-09] MEDS ORDERED: NAPR-514 PO (12:09)
--- NOTE | 2019-02-09 12:10 | PHYS DOC ---
Past Medical History Past Medical History: Depression, Diabetes-Type II, High Cholesterol, Heart Disease, Hypertension, AL Additional Past Medical Histor: Neuropathy Past Surgical History: Coronary Bypass Surgery Additional Past Surgical Histo: FEMORAL POPITEAL BYPASS; 5 BYPASS Alcohol Use: None Drug Use: None Adult General Chief Complaint Chief Complaint: DENTAL PROBLEM HPI HPI Patient is a 63 year old male who presents to the emergency department with complaints of frontal upper gingival pain for the last 5-6 weeks. PT states that the pain increases when he is eating. He reports that he has a permanent bridge in the upper palate. Patient currently rates his pain 8 out of 10 on the pain scale, he denies any alleviating factors. Patient denies any purulent drainage, or bleeding from the area. He denies any recent fever, ear pain, cough, shortness of breath, nausea, vomiting, diarrhea, or abdominal pain. Patient st ates the pain shoots to just below his right nare. All other ROS is neg unless otherwise noted in HPI. Review of Systems Review of Systems See Above Allergies Allergies Allergies Coded Allergies Type Severity Reaction Last Updated Verified No Known Drug Allergies 11/30/17 No Physical Exam Physical Exam Constitutional: Well developed, well nourished, no acute distress, non-toxic appearance. [] HENT: Normocephalic, atraumatic, bilateral external ears normal, oropharynx moist, no oral exudates, nose normal; permanent upper dental bridge, upper frontal gingival edema and erythema that is tender to palpation, no visible abscess, no fluctuance [] Eyes: PERRLA, EOMI, conjunctiva normal, no discharge. [] Neck: Normal range of motion, no stridor. [] Cardiovascular:Heart rate regular rhythm Lungs & Thorax: Respirations even and unlabored, no retractions, no respiratory distress Skin: Warm, dry, no erythema, no rash. [] Extremities: No cyanosis, ROM intact Neurologic: Alert and oriented X 3, no focal deficits noted. [] Psychologic: Affect normal, judgement normal, mood normal. [] Current Patient Data Vital Signs Vital Signs Date Time Temp Pulse Resp B/P (MAP) Pulse Ox O2 Delivery O2 Flow Rate FiO2 02/09/19 11:25 98.3 92 18 157/84 (108) 99 Room Air 98.3 EKG EKG [] Radiology/Procedures Radiology/Procedures [] Course & Med Decision Making Course & Med Decision Making Pertinent Labs and Imaging studies reviewed. (See chart for details) Patient is a 63-year-old male who presented to the emergency room with complaints of a, pain and swelling for the last 5-6 weeks. Patient had a permanent upper frontal bridge. There is no visible abscess or palpable pocket of fluid. The pain radiated to just below the right [place], there is no warmth or erythema of the upper lip. We'll prescribe Keflex naproxen, and Peridex. Advised the patient that he needs to follow up with a dentist for further evaluation and treatment, return to the emergency room if symptoms are not any better after 1-2 days. Pt verbalized an understanding of home care, medications, follow-up, and return to ED instructions and was in agreement with the plan of care. [] Dragon Disclaimer Dragon Disclaimer This electronic medical record was generated, in whole or in part, using a voice recognition dictation system. Departure Departure Impression: Primary Impression: Gingivitis, acute Additional Impression: Dentalgia Disposition: 01 HOME, SELF-CARE Condition: STABLE Referrals: NO PCP (PCP) Patient Instructions: Dental Pain, [id number], Gingivitis, [id number] Additional Instructions: Fill prescription(s) and use as directed. Follow up with dentist using the referral list provided. Return to the ER if symptoms worsen. Scripts Cephalexin (CEPHALEXIN) 500 Mg Capsule 1 CAP PO TID for 7 Days, #21 CAP 0 Refills Prov: KEILA ÁLVAREZ APRN 02/09/19 Chlorhexidine Gluconate (PERIDEX) 15 Ml Mouthwash 15 ML SWSP BID for 7 Days, #473 ML 0 Refills [place] teeth before using to prevent staining. Swish for approximately 30 seconds before spitting. Prov: KEILA ÁLVAREZ APRN 02/09/19 Naproxen (NAPROXEN) 500 Mg Tablet 1 TAB PO BID PRN for PAIN for 10 Days, #20 TAB 0 Refills Prov: KEILA ÁLVAREZ APRN 02/09/19 Problem Qualifiers KEILA ÁLVAREZ APRN Feb 09, 2019 12:10
== END 2019-02-09 12:43 | disposition home or self-care (01) ==
LOC: ER 11:05
DX: K05.00 Acute gingivitis, plaque induced (principal); K08.89 Other specified disorders of teeth and supporting structures; F32.9 Major depressive disorder, single episode, unspecified; E78.00 Pure hypercholesterolemia, unspecified; I11.9 Hypertensive heart disease without heart failure; I25.2 Old myocardial infarction; E11.40 Type 2 diabetes mellitus with diabetic neuropathy, unspecified; Z95.1 Presence of aortocoronary bypass graft
CPT/HCPCS: 99283

== ENCOUNTER 2019-06-13 14:33 | Emergency (ER) | payer BC ==
[~2019-06-13] VITALS: Ht 177.8 cm; Wt 90.9 kg
[~2019-06-13 14:33] MED LIST changes: +CEPH500C PO; +CHLO15MO2 SWSP; +NAPR-514 PO
--- NOTE | 2019-06-13 15:25 | PHYS DOC ---
Past Medical History Past Medical History: Depression, Diabetes-Type II, High Cholesterol, Heart Disease, Hypertension, [place] Additional Past Medical Histor: Neuropathy Past Surgical History: Coronary Bypass Surgery Additional Past Surgical Histo: FEMORAL POPITEAL BYPASS; 5 BYPASS Smoking Status: Former Smoker Alcohol Use: None Drug Use: None Adult General Chief Complaint Chief Complaint: LOWER EXT PAIN HPI HPI Patient is a 63 year old male who presents with right anterior knee pain and right calf pain that is worsened over the last 3 months. He states is hard for him to walk on it. When I asked him to explain the pain he states he cannot explain the way that it feels. He denies coolness of the extremity or skin color changes. Rates his pain a 7 out of 10 especially when walking. Review of Systems Review of Systems Musculoskeletal: Denies back pain. Right knee and calf joint pain [] All other systems were reviewed and found to be within normal limits, except as documented in this note. Allergies Allergies Allergies Coded Allergies Type Severity Reaction Last Updated Verified No Known Drug Allergies 11/30/17 No Physical Exam Physical Exam Constitutional: Well developed, well nourished, no acute distress, non-toxic appearance. [] HENT: Normocephalic, atraumatic, bilateral external ears normal, oropharynx moist, no oral exudates, nose normal. [] Eyes: PERRLA, EOMI, conjunctiva normal, no discharge. [] Neck: Normal range of motion, no tenderness, supple, no stridor. [] Cardiovascular:Heart rate regular rhythm, no murmur [] Lungs & Thorax: Bilateral breath sounds clear to auscultation [] Abdomen: Bowel sounds normal, soft, no tenderness, no masses, no pulsatile masses. [] Skin: Warm, dry, no erythema, no rash. [] Back: No tenderness, no CVA tenderness. [] Extremities: Right calf tenderness, no cyanosis, no clubbing, ROM intact, no edema. [] Neurologic: Alert and oriented X 3, normal motor function, normal sensory f unction, no focal deficits noted. [] Psychologic: Affect normal, judgement normal, mood normal. [] Current Patient Data Vital Signs Vital Signs Date Time Temp Pulse Resp B/P (MAP) Pulse Ox O2 Delivery O2 Flow Rate FiO2 06/13/19 15:00 97.7 97 17 157/93 (114) 99 Room Air 97.7 Lab Values Laboratory Tests Test 4/6/20 15:15 White Blood Count 7.6 x10^3/uL (4.0-11.0) Red Blood Count 5.56 x10^6/uL (4.30-5.70) Hemoglobin 13.6 g/dL (13.0-17.5) Hematocrit 43.5 % (39.0-53.0) Mean Corpuscular Volume 78 fL (79-100) L Mean Corpuscular Hemoglobin 24 pg (25-35) L Mean Corpuscular Hemoglobin Concent 31 g/dL (31-37) Red Cell Distribution Width 16.1 % (11.5-14.5) H Platelet Count 253 x10^3/uL (140-400) Neutrophils (%) (Auto) 59 % (31-73) Lymphocytes (%) (Auto) 31 % (24-48) Monocytes (%) (Auto) 9 % (0-9) Eosinophils (%) (Auto) 1 % (0-3) Basophils (%) (Auto) 0 % (0-3) Neutrophils # (Auto) 4.5 x10^3/uL (1.8-7.7) Lymphocytes # (Auto) 2.3 x10^3/uL (1.0-4.8) Monocytes # (Auto) 0.7 x10^3/uL (0.0-1.1) Eosinophils # (Auto) 0.1 x10^3/uL (0.0-0.7) Basophils # (Auto) 0.0 x10^3/uL (0.0-0.2) Prothrombin Time 12.3 SEC (11.7-14.0) Prothrombin Time INR 1.0 (0.8-1.1) Sodium Level 138 mmol/L (136-145) Potassium Level 5.1 mmol/L (3.5-5.1) Chloride Level 104 mmol/L (98-107) Carbon Dioxide Level 24 mmol/L (21-32) Anion Gap 10 (6-14) Blood Urea Nitrogen 21 mg/dL (8-26) Creatinine 1.4 mg/dL (0.7-1.3) H Estimated GFR (Cockcroft-Gault) 51.5 BUN/Creatinine Ratio 15 (6-20) Glucose Level 263 mg/dL (70-99) H Calcium Level 8.4 mg/dL (8.5-10.1) L Total Bilirubin 0.3 mg/dL (0.2-1.0) Aspartate Amino Transferase (AST) 21 U/L (15-37) Alanine Aminotransferase (ALT) 15 U/L (16-63) L Alkaline Phosphatase 98 U/L (46-116) Total Protein 7.0 g/dL (6.4-8.2) Albumin 3.5 g/dL (3.4-5.0) Albumin/Globulin Ratio 1.0 (1.0-1.7) Laboratory Tests 06/13/19 15:15 Laboratory Tests 06/13/19 15:15 EKG EKG Sinus Rhythm and no STEMI[] Interpretation Time: [address] Lux Radiology/Procedures Radiology/Procedures [] Impressions: [facility] [address] [place] [address] IMAGING REPORT Signed PATIENT: PORFIRIO VILLAGOMEZ ACCOUNT: [id number] : 1955 LOCATION: ER AGE: 63 SEX: M EXAM STATUS: REG ER ORD. PHYSICIAN: FRANK CORONADO APRN REASON: calf pain PROCEDURE: VENOUS LOWER EXTREMITY RIGHT Right lower extremity venous duplex study 06/13/2019 3:48 PM Clinical History: Right lower extremity pain Technique: Using a combination of real time ultrasound imaging and color-flow and pulse Doppler imaging techniques, including spectral analysis, graded compression and augmentation, duplex evaluation of the deep venous system of the right lower extremity was performed. Multiple images were obtained. Findings: There is no sonographic evidence of deep venous thrombosis involving the visualized deep venous structures of the right lower extremity. There is a nonspecific fluid collection abutting the right popliteal fossa measuring 4.7 x 0.9 x 4.4 cm. IMPRESSION: 1.No evidence of right lower extremity deep venous thrombosis 2. Fluid collection abutting the right popliteal fossa which could represent a Michele's cyst. If there is history of surgery. A seroma is possible. There is evidence of acute infection, abscess could be considered. Electronically signed by: Robbie Pizano MD (06/13/2019 3:53 PM) [id number] DICTATED and SIGNED BY: ROBBIE PIZANO MD DATE: 06/13/19 1553 Course & Med Decision Making Course & Med Decision Making Pertinent Labs and Imaging studies reviewed. (See chart for details) No swelling of the extremity. Skin pink warm and dry. Cap refill less than 3 seconds. Full range of motion of the knee. Patient is ambulatory with a steady gait. Equal strength and movement in all extremities. Calf tenderness with palpation. No tenderness over anterior knee with palpation. No joint swelling or deformities or redness or heat. Patient has a history of [place], coronary bypasses, diabetes, hypertension, high cholesterol. Patient denies chest pain, shortness of air, abdominal pain, nausea, vomiting, diarrhea, fever, dizziness, headache, vision changes. Patient states that he does have normal neuropathies in his bilateral lower feet and that is normal for him from his diabetes. He denies any injury to his extremity or his knee. [] Dragon Disclaimer Dragon Disclaimer This electronic medical record was generated, in whole or in part, using a voice recognition dictation system. Departure Departure Impression: Primary Impression: Michele's cyst of knee Disposition: HOME, SELF-CARE Condition: STABLE Referrals: NO PCP (PCP) SUBHA BROWER II, MD Patient Instructions: Michele's Cyst Additional Instructions: Follow up orthopedics. Try using a heating pad for pain. Scripts Hydrocodone/Apap 5-325 (NORCO 5-325 TABLET) 1 Each Tablet 1 TAB PO PRN Q6HRS PRN for PAIN, #10 TAB 0 Refills Prov: FRANK CORONADO APRN 06/13/19 Problem Qualifiers Primary Impression: Michele's cyst of knee Laterality: right Qualified Codes: M71.21 - Synovial cyst of popliteal space [Michele], right knee FRANK CORONADO SUPERVISOR COMPONENT ASSEMBLER Jun 13, 2019 15:25
[2019-06-13 15:28] LABS: BASO % 0 % (0-3); EOS # 0.1 x10^3/uL (0.0-0.7); EOS % 1 % (0-3); HEMATOCRIT 43.5 % (39.0-53.0); HEMOGLOBIN 13.6 g/dL (13.0-17.5); LYMPH # 2.3 x10^3/uL (1.0-4.8); LYMPH % 31 % (24-48); MEAN CORPUSCULAR HEMOGLOBIN 24 pg (25-35); MEAN CORPUSCULAR HGB CONC 31 g/dL (31-37); MEAN CORPUSCULAR VOLUME 78 fL (79-100); MONO # 0.7 x10^3/uL (0.0-1.1); MONO % 9 % (0-9); NEUT # 4.5 x10^3/uL (1.8-7.7); NEUT % 59 % (31-73); PLATELET COUNT 253 x10^3/uL (140-400); RED BLOOD COUNT 5.56 x10^6/uL (4.30-5.70); RED CELL DISTRIBUTION WIDTH 16.1 % (11.5-14.5); WHITE BLOOD COUNT 7.6 x10^3/uL (4.0-11.0)
[2019-06-13 15:35] LABS: PROTHROMBIN TIME PATIENT 12.3 SEC (11.7-14.0)
[2019-06-13 15:36] LABS: CALCIUM 8.4 mg/dL (8.5-10.1); CREATININE 1.4 mg/dL (0.7-1.3); GFR 51.5; POTASSIUM 5.1 mmol/L (3.5-5.1)
[2019-06-13 15:44] LABS: ALBUMIN 3.5 g/dL (3.4-5.0); TOTAL BILIRUBIN 0.3 mg/dL (0.2-1.0)
--- NOTE | 2019-06-13 15:51 | EKG ---
[facility] [address] [place] [address] Test Date: 2019-06-13 Test Time: 15:11:02 Pat Name: PORFIRIO VILLAGOMEZ Department: Room: Gender: M Automotive Glass Technician: : 1955 Requested By: FRANK CORONADO Order Number: [id number] Reading MD: Kalyan Hernandez Measurements Intervals [place] Rate: 92 P: 39 MO: 150 QRS: 45 QRSD: 84 T: 43 QT: 320 QTc: 400 Interpretive Statements SINUS RHYTHM NONSPECIFIC ST-T WAVE CHANGES SEPTAL Q WAVE. Electronically Signed On 06-14-2019 9:38:14 CDT by Kalyan Hernandez
--- NOTE | 2019-06-13 15:56 | RAD ---
Right lower extremity venous duplex study 06/13/2019 3:48 PM Clinical History: Right lower extremity pain Technique: Using a combination of real time ultrasound imaging and color-flow and pulse Doppler imaging techniques, including spectral analysis, graded compression and augmentation, duplex evaluation of the deep venous system of the right lower extremity was performed. Multiple images were obtained. Findings: There is no sonographic evidence of deep venous thrombosis involving the visualized deep venous structures of the right lower extremity. There is a nonspecific fluid collection abutting the right popliteal fossa measuring 4.7 x 0.9 x 4.4 cm. IMPRESSION: 1.No evidence of right lower extremity deep venous thrombosis 2. Fluid collection abutting the right popliteal fossa which could represent a Michele's cyst. If there is history of surgery. A seroma is possible. There is evidence of acute infection, abscess could be considered. Electronically signed by: Robbie Dupont MD (06/13/2019 3:53 PM) [id number]
--- NOTE | 2019-06-13 16:37 | RAD ---
KNEE RIGHT 4V DATE: 06/13/2019 3:19 PM INDICATION: Knee pain COMPARISON: None. FINDINGS: Bones: There is no evidence of acute fracture or dislocation. Joints: Mild medial and patellofemoral compartment degenerative changes. There is no joint effusion. Miscellaneous: None. IMPRESSION: No acute osseous abnormality. Mild degenerative changes. Electronically signed by: Emmanuel Edmondson MD (06/13/2019 4:34 PM) [id number]
[2019-06-13] MEDS ORDERED: HYDR-3164 PO (17:20)
[2019-06-13 17:30] VITALS: BP 154/70
== END 2019-06-13 17:38 | disposition home or self-care (01) ==
LOC: ER 14:33
DX: M71.21 Synovial cyst of popliteal space [Baker], right knee (principal); M79.661 Pain in right lower leg; E78.00 Pure hypercholesterolemia, unspecified; F32.9 Major depressive disorder, single episode, unspecified; I11.9 Hypertensive heart disease without heart failure; E11.40 Type 2 diabetes mellitus with diabetic neuropathy, unspecified; I25.2 Old myocardial infarction; Z98.890 Other specified postprocedural states; Z87.891 Personal history of nicotine dependence
CPT/HCPCS: 29505; 36415; 73564; 80053; 85025; 85610; 93005; 93971; 99285

== ENCOUNTER 2019-09-04 12:30 | Emergency (ER) | payer BC ==
[~2019-09-04] VITALS: Ht 177.8 cm; Wt 90.9 kg
[~2019-09-04 12:30] MED LIST changes: +HYDR-3164 PO
[2019-09-04 13:29] VITALS: BP 158/80
--- NOTE | 2019-09-04 13:34 | PHYS DOC ---
Past Medical History Past Medical History: Depression, Diabetes-Type II, High Cholesterol, Heart Disease, Hypertension, [place], Other Additional Past Medical Histor: Neuropathy (FRANK CORONADO ORTHOTIC/PROSTHETIC PRACTITIONER) Past Surgical History: Coronary Bypass Surgery Additional Past Surgical Histo: FEMORAL POPITEAL BYPASS; 5 BYPASS (FRANK CORONADO ORTHOTIC/PROSTHETIC PRACTITIONER) Smoking Status: Former Smoker Alcohol Use: None Drug Use: None (FRANK CORONADO APRN) General Adult EDM: Chief Complaint: TOE PROBLEM HPI: HPI: Patient is a 63 year old male who presents with 5 days of left great toe redness. He states that he noticed that the toenail turned a blue color and that he squeezed it and blood and purulent fluid came out from underneath it. He states he does not remember stubbing the toe or injuring it. He does have neuropathy in his feet from his diabetes. He goes to [facility] for his primary care and to get all of his medications. He denies pain but again he has neuropathy. He denies fever, body aches, nausea, vomiting, diarrhea, chest pain, shortness of air, headache, dizziness, cough. He is ambulatory with a steady gait. There is redness around the cuticle of the toe but the toe itself is not swollen. The toenail itself is a fall be yellow color. Pedal pulses strong and present. The foot is not swollen. Patient denies pain. (FRANK CORONADO ORTHOTIC/PROSTHETIC PRACTITIONER) Review of Systems: Review of Systems: Constitutional: Denies fever or chills. [] Eyes: Denies change in visual acuity. [] HENT: Denies nasal congestion or sore throat. [] Respiratory: Denies cough or shortness of breath. [] Cardiovascular: Denies chest pain or edema. [] GI: Denies abdominal pain, nausea, vomiting, bloody stools or diarrhea. [] : Denies dysuria. [] Musculoskeletal: Denies back pain or joint pain. [] Integument: Denies rash. Redness of cuticle of toe and toenail yellowing. [] Neurologic: Denies headache, focal weakness or sensory changes. [] Endocrine: Denies polyuria or polydipsia. [] Lymphatic: Denies swollen glands. [] Psychiatric: Denies depression or anxiety. [] (FRANK CORONADO ORTHOTIC/PROSTHETIC PRACTITIONER) Heart Score: Risk Factors: Risk Factors: DM, Current or recent (<one month) smoker, HTN, HLP, family history of CAD, obesity. Risk Scores: Score 0 - 3: 2.5% MACE over next 6 weeks - Discharge Home Score 4 - 6: 20.3% MACE over next 6 weeks - Admit for Clinical Observation Score 7 - 10: 72.7% MACE over next 6 weeks - Early Invasive Strategies (FRANK CORONADO APRN) Allergies: Allergies: Allergies Coded Allergies Type Severity Reaction Last Updated Verified No Known Drug Allergies 11/30/17 No (FRANK CORONADO APRN) Physical Exam: PE: Constitutional: Well developed, well nourished, no acute distress, non-toxic appearance. [] HENT: Normocephalic, atraumatic, bilateral external ears normal, oropharynx moist, no oral exudates, nose normal. [] Eyes: PERRLA, EOMI, conjunctiva normal, no discharge. [] Neck: Normal range of motion, no tenderness, supple, no stridor. [] Cardiovascular:Heart rate regular rhythm, no murmur [] Lungs & Thorax: Bilateral breath sounds clear to auscultation [] Abdomen: Bowel sounds normal, soft, no tenderness, no masses, no pulsatile masses. [] Skin: Warm, dry, erythema around left great toe cuticle, no rash. [] Back: No tenderness, no CVA tenderness. [] Extremities: No tenderness, no cyanosis, no clubbing, ROM intact, no edema. [] Neurologic: Alert and oriented X 3, normal motor function, normal sensory function, no focal deficits noted. [] Psychologic: Affect normal, judgement normal, mood normal. [] (FRANK CORONADO APRN) EKG: EKG: [] (FRANK CORONADO APRN) Radiology/Procedures: Radiology/Procedures: [] Impression: [facility] [address] [address] IMAGING REPORT Signed PATIENT: PORFIRIO VILLAGOMEZ ACCOUNT: [id number] : 1955 LOCATION: ER AGE: 63 SEX: M EXAM STATUS: REG ER ORD. PHYSICIAN: FRANK CORONADO APRN REASON: pain, infection PROCEDURE: FOOT LEFT 3V PROCEDURE: FOOT LEFT 3V STUDY DATE: 09/04/2019 CLINICAL INDICATION / HISTORY: Reason: pain, infection / Spl. Instructions: / History: . TECHNIQUE: AP, lateral and oblique views of the left foot. COMPARISON: None FINDINGS: No fracture or dislocation is identified. The bone density is normal. The joint space widths are maintained, and there are no erosions to suggest an inflammatory arthropathy. No soft tissue abnormality is seen. IMPRESSION: No acute osseous abnormality. Electronically signed by: Dejan Quintana MD (09/04/2019 1:42 PM) [id number] DICTATED and SIGNED BY: DEJAN QUINTANA MD DATE: 09/04/19 1342 (FRANK CORONADO APRN) Course & Med Decision Making: Course & Med Decision Making Pertinent Labs and Imaging studies reviewed. (See chart for details) See HPI. Patient can wiggle all of his toes. No deformity to any joints or to the toe. There is no drainage. Since patient is diabetic I will go ahead and x-ray the toe and put him on antibiotic. Patient has a history of high cholesterol, heart disease, hypertension, [place], depression, diabetes, coronary bypass. States he is been taking all of his medications and his blood sugars have been running appropriately. [] (FRANK CORONADO APRN) Dragon Disclaimer: Dragon Disclaimer: This electronic medical record was generated, in whole or in part, using a voice recognition dictation system. (FRANK CORONADO APRN) Departure Departure Impression: Primary Impression: Paronychia Disposition: 01 HOME, SELF-CARE Condition: STABLE Referrals: NO PCP (PCP) Patient Instructions: Paronychia Additional Instructions: Follow-up with your primary care provider. You can soak your foot in warm water with Epson salt 3 times a day. Keep covered and protected. If the toe worsens come back to the emergency room. Scripts Cephalexin (KEFLEX) 500 Mg Capsule 1 CAP PO TID for 10 Days, #30 CAP 0 Refills Prov: FRANK CORONADO APRN 09/04/19 Justicifation of Admission Dx: Justifications for Admission: Justification of Admission Dx: N/A (FRANK CORONADO APRN) Attending Signature Attending Signature I have participated in the care of this patient and I have reviewed and agree with all pertinent clinical information above including history, exam, and recommendations. (PRIYANKA COLLAZO DO) FRANK CORONADO APRN Sep 04, 2019 13:34 PRIYANKA COLLAZO DO Sep 04, 2019 16:37
--- NOTE | 2019-09-04 13:45 | RAD ---
PROCEDURE: FOOT LEFT 3V STUDY DATE: 09/04/2019 CLINICAL INDICATION / HISTORY: Reason: pain, infection / Spl. Instructions: / History: . TECHNIQUE: AP, lateral and oblique views of the left foot. COMPARISON: None FINDINGS: No fracture or dislocation is identified. The bone density is normal. The joint space widths are maintained, and there are no erosions to suggest an inflammatory arthropathy. No soft tissue abnormality is seen. IMPRESSION: No acute osseous abnormality. Electronically signed by: Barbara Quintana MD (09/04/2019 1:42 PM) [id number]
[2019-09-04] MEDS ORDERED: CEPH-264 PO (13:52)
== END 2019-09-04 13:59 | disposition home or self-care (01) ==
LOC: ER 12:30
DX: L03.032 Cellulitis of left toe (principal); I11.9 Hypertensive heart disease without heart failure; E78.00 Pure hypercholesterolemia, unspecified; E11.40 Type 2 diabetes mellitus with diabetic neuropathy, unspecified; F32.9 Major depressive disorder, single episode, unspecified; I25.2 Old myocardial infarction; Z98.890 Other specified postprocedural states; Z87.891 Personal history of nicotine dependence
CPT/HCPCS: 73630; 99283

== ENCOUNTER 2020-08-03 16:12 | Emergency (ER) | payer BC, MEDICARE ==
[~2020-08-03] VITALS: Ht 177.8 cm; Wt 88.6 kg
[~2020-08-03 16:12] MED LIST changes: +CEPH-264 PO; -CLIN150C14 PO; +CLIN150C15 PO; -LISI-334 PO; -LISI-338 PO; +LISI-517 PO; +LISI10TA16 PO; -LISI10TA2 PO; +LISI20TA18 PO
[2020-08-03 19:10] LABS: BASO # 0.1 x10^3/uL (0.0-0.2); BASO % 1 % (0-3); EOS # 0.1 x10^3/uL (0.0-0.7); EOS % 2 % (0-3); HEMATOCRIT 44.4 % (39.0-53.0); HEMOGLOBIN 14.9 g/dL (13.0-17.5); LYMPH # 2.2 x10^3/uL (1.0-4.8); LYMPH % 28 % (24-48); MEAN CORPUSCULAR HEMOGLOBIN 29 pg (25-35); MEAN CORPUSCULAR HGB CONC 34 g/dL (31-37); MEAN CORPUSCULAR VOLUME 87 fL (79-100); MONO # 0.6 x10^3/uL (0.0-1.1); MONO % 7 % (0-9); NEUT # 4.9 x10^3/uL (1.8-7.7); NEUT % 62 % (31-73); PLATELET COUNT 225 x10^3/uL (140-400); RED BLOOD COUNT 5.09 x10^6/uL (4.30-5.70); RED CELL DISTRIBUTION WIDTH 13.4 % (11.5-14.5); WHITE BLOOD COUNT 7.8 x10^3/uL (4.0-11.0)
[2020-08-03 19:28] LABS: CALCIUM 8.8 mg/dL (8.5-10.1); CREATININE 1.4 mg/dL (0.7-1.3); GFR 51.4; POTASSIUM 5.6 mmol/L (3.5-5.1)
[2020-08-03] MEDS ORDERED: CONTRAST GIVEN. MC PRN (19:45)
[2020-08-03] MEDS ORDERED: IV NORMAL SALINE 1000ML BAG 1,000 ML IV ONE (20:00)
[2020-08-03] MEDS ORDERED: IOHEXOL 350 MG/ML 100 ML VIAL. IV ONE (20:00)
--- NOTE | 2020-08-03 21:30 | RAD ---
STUDY: CT angiography of the aorta with runoff INDICATION: Right calf pain, no palpable pulse, cool foot COMPARISON: None TECHNIQUE: Helical CT angiography of the abdominal aorta with runoff through the bilateral lower extr emities. Multiplanar reconstructions were obtained to include 3D MIP reconstructions. Imaging was per formed after the intravenous administration of intravenous contrast. One or more of the following individualized dose reduction techniques were utilized for this examinat ion: 1. Automated exposure control 2. Adjustment of the mA and/or kV according to patient size 3. Use of iterative reconstruction technique. FINDINGS: VASCULATURE: ABDOMINAL AORTA AND ILIAC ARTERIES: The abdominal aorta is normal in caliber. There is mild calcified and noncalcified aortic atherosclerosis. The celiac and superior mesenteric artery origins are widel y patent. There are 2 right renal arteries. Mild narrowing of the more superior right renal artery or igin there is focal moderate to severe narrowing of the proximal left renal artery (image 53 series 3 and image 45 series 6). Mild narrowing of the inferior mesenteric artery origin. Iliac arteries are normal in caliber. There is moderate calcified and noncalcified iliac artery ather osclerosis, greater in the internal iliac arteries which demonstrate mild narrowing distally. There a re bilateral persistent sciatic arteries. RIGHT LOWER EXTREMITY: The common femoral artery is normal in caliber and patent. There is a persiste nt sciatic artery supplying the tibial peroneal trunk and a small but patent incomplete superficial f emoral artery which terminates near Anson's canal. Profunda femoris artery is patent. The persistent sciatic artery becomes occluded for about a 3-3.5 cm segment at the junction of the pr oximal to middle third of the femoral shaft, and has at least mild diffuse narrowing after being ca nstituted by a collateral vessel. The tibioperoneal trunk is patent. The proximal anterior tibial art jamilah is not well opacified. It becomes slightly better opacified in the mid calf and then diminutive j ust above the ankle. The peroneal artery becomes very diminutive just above the ankle. The posterior tibial artery is well opacified into the foot. Some or all of this may be due to contrast bolus timin g. Left lower extremity: There is a common femoral to tibioperoneal trunk bypass graft. The graft is pat ent. The common femoral artery is patent. There is an incomplete, small superficial femoral artery wh ich terminates near Anson's canal. There is a persistent sciatic artery that is chronically occluded from the level of the proximal femoral shaft distally. The tibioperoneal trunk is supplied by the by pass graft is patent. There is diminutive opacification of three-vessel runoff below the knee, likely due to contrast bolus timing. ABDOMEN/PELVIS/EXTREMITIES: Lung bases are clear. The heart is normal in size. Liver is unremarkable. There is cholelithiasis. The pancreas, spleen, and adrenal glands are normal. Kidneys, ureters, and bladder are normal. Prostate gland is normal. No lymphadenopathy. The stomach, small bowel, and colon are unremarkable. No free fluid or free air. Small fat-containing left inguina l hernia. There is no acute osseous abnormality. Mild degenerative joint disease of the hips and knee s. IMPRESSION: 1. Bilateral anatomic variant of persistent sciatic arteries supplying the tibioperoneal trunks and incomplete superficial femoral arteries. On the right, there is a probable chronic occlusion of the p roximal to mid persistent sciatic artery over a 3 to 3.5 cm segment. This becomes reconstituted via a collateral vessel and has at least mild diffuse narrowing beyond the occlusion. 2. 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 3. Bilateral 3 vessel runoff below the knee is fairly diminutive, greater on the left. This is favor ed to be due to contrast bolus timing with diffuse narrowing due to peripheral vascular disease less likely. 4. Moderate to severe focal narrowing of the proximal left renal artery. 5. Cholelithiasis. Results discussed by Dr. Zapata with the ER physician at approximately 9:00 PM on 08/03/2020. Electronically signed by: Tana Zapata MD (08/03/2020 9:28 PM) [id number]
[2020-08-03] MEDS ORDERED: HYDR-2761 PO (21:44)
--- NOTE | 2020-08-03 21:46 | ED.ADGEN ---
Past Medical History Past Medical History: Diabetes-Type II, High Cholesterol, Hypertension, Vascular Disease, Other Additional Past Medical Histor: NEUROPATHY Past Surgical History: Coronary Bypass Surgery, Other Additional Past Surgical Histo: LEFT LOWER LEG "BYPASS" Smoking Status: Former Smoker Alcohol Use: None Drug Use: None General Adult EDM: Chief Complaint: LOWER EXT PAIN HPI: HPI: Patient is a 64 year old male, accompanied by his , who presents emergency department with complaints of ongoing pain in his right calf. Patient states that symptoms began about a year ago. He has previously had a bypass in his left lower extremity due to blockage in his left leg. He reports that his pain is similar to the pain that he experienced previously when he needed that bypass. Patient denies any acute change in the symptoms. He denies any loss of sensation, color change, edema, or significant increase in the pain. He denies any injury or trauma. He currently rates his discomfort a 5 out of 10 on the pain scale, he reports that the pain improves with rest and is usually worse with activity. Review of Systems: Review of Systems: Constitutional: Denies fever or chills. [] HENT: Denies nasal congestion or sore throat. [] Respiratory: Denies cough or shortness of breath. [] Cardiovascular: Denies chest pain or edema. [] GI: Denies abdominal pain, nausea, vomiting, or diarrhea. [] Musculoskeletal: See HPI Integument: Denies rash; see HPI. [] Neurologic: Denies headache, focal weakness or sensory changes. [] Psychiatric: Denies depression or anxiety. [] Current Medications: Current Medications Medications (Trade) Dose Ordered Sig/Keny Start Time Stop Time Status Last Admin Dose Admin Info (CONTRAST GIVEN -- Rx MONITORING) 1 each PRN DAILY PRN 08/03/20 19:45 08/03/20 22:36 DC Iohexol (Omnipaque 350 Mg/ml) 90 ml 1X ONCE 08/03/20 20:00 08/03/20 20:01 DC Sodium Chloride 1,000 ml @ 1,000 mls/hr 1X ONCE 08/03/20 20:00 08/03/20 20:59 DC 08/03/20 20:34 1,000 MLS/HR Allergies: Allergies: Allergies Coded Allergies Type Severity Reaction Last Updated Verified No Known Drug Allergies 11/30/17 No Physical Exam: PE: Constitutional: Well developed, well nourished, no acute distress, non-toxic appearance. [] HENT: Normocephalic, atraumatic, bilateral external ears normal, nose normal. [] Eyes: PERRLA, EOMI, conjunctiva normal, no discharge. [] Neck: Normal range of motion, no stridor. [] Cardiovascular:Heart rate regular rhythm Lungs & Thorax: Respirations even and unlabored, no retractions, no respiratory distress Skin: Warm, dry, no erythema, no rash. [] Extremities: RLE: No cyanosis, cap refill less than 3 seconds, sensation intact, 1+ palpable pedal pulse, ROM intact, no edema. [] Neurologic: Alert and oriented X 3, normal motor, normal sensory, no focal deficits noted. [] Psychologic: Affect normal, judgement normal, mood normal. [] Current Patient Data: Labs: Laboratory Tests Test 08/03/20 18:55 White Blood Count 7.8 x10^3/uL (4.0-11.0) Red Blood Count 5.09 x10^6/uL (4.30-5.70) Hemoglobin 14.9 g/dL (13.0-17.5) Hematocrit 44.4 % (39.0-53.0) Mean Corpuscular Volume 87 fL (79-100) Mean Corpuscular Hemoglobin 29 pg (25-35) Mean Corpuscular Hemoglobin Concent 34 g/dL (31-37) Red Cell Distribution Width 13.4 % (11.5-14.5) Platelet Count 225 x10^3/uL (140-400) Neutrophils (%) (Auto) 62 % (31-73) Lymphocytes (%) (Auto) 28 % (24-48) Monocytes (%) (Auto) 7 % (0-9) Eosinophils (%) (Auto) 2 % (0-3) Basophils (%) (Auto) 1 % (0-3) Neutrophils # (Auto) 4.9 x10^3/uL (1.8-7.7) Lymphocytes # (Auto) 2.2 x10^3/uL (1.0-4.8) Monocytes # (Auto) 0.6 x10^3/uL (0.0-1.1) Eosinophils # (Auto) 0.1 x10^3/uL (0.0-0.7) Basophils # (Auto) 0.1 x10^3/uL (0.0-0.2) Sodium Level 134 mmol/L (136-145) L Potassium Level 5.6 mmol/L (3.5-5.1) H Chloride Level 99 mmol/L (98-107) Carbon Dioxide Level 24 mmol/L (21-32) Anion Gap 11 (6-14) Blood Urea Nitrogen 35 mg/dL (8-26) H Creatinine 1.4 mg/dL (0.7-1.3) H Estimated GFR (Cockcroft-Gault) 51.4 Glucose Level 490 mg/dL (70-99) H Lactic Acid Level 1.2 mmol/L (0.4-2.0) Calcium Level 8.8 mg/dL (8.5-10.1) Laboratory Tests 08/03/20 18:55 Laboratory Tests 08/03/20 18:55 Vital Signs: Vital Signs Date Time Temp Pulse Resp B/P (MAP) Pulse Ox O2 Delivery O2 Flow Rate FiO2 08/03/20 22:11 74 146/85 (105) 98 08/03/20 17:45 98.1 16 Room Air 98.1 EKG: EKG: [] Heart Score: C/O Chest Pain: No Risk Scores: Score 0 - 3: 2.5% MACE over next 6 weeks - Discharge Home Score 4 - 6: 20.3% MACE over next 6 weeks - Admit for Clinical Observation Score 7 - 10: 72.7% MACE over next 6 weeks - Early Invasive Strategies Radiology/Procedures: Radiology/Procedures: PROCEDURE: CT ANGIO ABD ILEO/FEMOR RUNOFF STUDY: CT angiography of the aorta with runoff INDICATION: Right calf pain, no palpable pulse, cool foot COMPARISON: None TECHNIQUE: Helical CT angiography of the abdominal aorta with runoff through the bilateral lower extremities. Multiplanar reconstructions were obtained to include 3D MIP reconstructions. Imaging was performed after the intravenous administration of intravenous contrast. One or more of the following individualized dose reduction techniques were utilized for this examination: 1. Automated exposure control 2. Adjustment of the mA and/or kV according to patient size 3. Use of iterative reconstruction technique. FINDINGS: VASCULATURE: ABDOMINAL AORTA AND ILIAC ARTERIES: The abdominal aorta is normal in caliber. There is mild calcified and noncalcified aortic atherosclerosis. The celiac and superior mesenteric artery origins are widely patent. There are 2 right renal arteries. Mild narrowing of the more superior right renal artery origin there is focal moderate to severe narrowing of the proximal left renal artery (image 53 series 3 and image 45 series 6). Mild narrowing of the inferior mesenteric artery origin. Iliac arteries are normal in caliber. There is moderate calcified and noncalcified iliac artery atherosclerosis, greater in the internal iliac arteries which demonstrate mild narrowing distally. There are bilateral persistent sciatic arteries. RIGHT LOWER EXTREMITY: The common femoral artery is normal in caliber and patent. There is a persistent sciatic artery supplying the tibial peroneal trunk and a small but patent incomplete superficial femoral artery which terminates near Anson's canal. Profunda femoris artery is patent. The persistent sciatic artery becomes occluded for about a 3-3.5 cm segment at the junction of the proximal to middle third of the femoral shaft, and has at least mild diffuse narrowing after being reconstituted by a collateral vessel. The tibioperoneal trunk is patent. The proximal anterior tibial artery is not well opacified. It becomes slightly better opacified in the mid calf and then diminutive just above the ankle. The peroneal artery becomes very diminutive just above the ankle. The posterior tibial artery is well opacified into the foot. Some or all of this may be due to contrast bolus timing. Left lower extremity: There is a common femoral to tibioperoneal trunk bypass graft. The graft is patent. The common femoral artery is patent. There is an incomplete, small superficial femoral artery which terminates near Anson's canal. There is a persistent sciatic artery that is chronically occluded from the level of the proximal femoral shaft distally. The tibioperoneal trunk is supplied by the bypass graft is patent. There is diminutive opacification of three-vessel runoff below the knee, likely due to contrast bolus timing. ABDOMEN/PELVIS/EXTREMITIES: Lung bases are clear. The heart is normal in size. Liver is unremarkable. There is cholelithiasis. The pancreas, spleen, and adrenal glands are normal. Kidneys, ureters, and bladder are normal. Prostate gland is normal. No lymphadenopathy. The stomach, small bowel, and colon are unremarkable. No free fluid or free air. Small fat-containing left inguinal hernia. There is no acute osseous abnormality. Mild degenerative joint disease of the hips and knees. IMPRESSION: 1. Bilateral anatomic variant of persistent sciatic arteries supplying the tibioperoneal trunks and incomplete superficial femoral arteries. On the right, there is a probable chronic occlusion of the proximal to mid persistent sciatic artery over a 3 to 3.5 cm segment. This becomes reconstituted via a collateral vessel and has at least mild diffuse narrowing beyond the occlusion. 2. 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 3. Bilateral 3 vessel runoff below the knee is fairly diminutive, greater on the left. This is favored to be due to contrast bolus timing with diffuse narrowing due to peripheral vascular disease less likely. 4. Moderate to severe focal narrowing of the proximal left renal artery. 5. Cholelithiasis. Results discussed by Dr. Zapata with the ER physician at approximately 9:00 PM on 08/03/2020. Electronically signed by: Tana Zapata MD (08/03/2020 9:28 PM) [id number][] Course & Med Decision Making: Course & Med Decision Making Pertinent Labs and Imaging studies reviewed. (See chart for details) 64-year-old male presents emergency department for evaluation of chronic pain in his right lower leg. CT angio of the patient's bilateral lower extremities revealed: 1. Bilateral anatomic variant of persistent sciatic arteries supplying the tibioperoneal trunks and incomplete superficial femoral arteries. On the right, there is a probable chronic occlusion of the proximal to mid persistent sciatic artery over a 3 to 3.5 cm segment. This becomes reconstituted via a collateral vessel and has at least mild diffuse narrowing beyond the occlusion. 2. 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 3. Bilateral 3 vessel runoff below the knee is fairly diminutive, greater on the left. This is favored to be due to contrast bolus timing with diffuse narrowing due to peripheral vascular disease less likely. 4. Moderate to severe focal narrowing of the proximal left renal artery. 5. Cholelithiasis. I discussed the case with Dr. Reilly. Provided the patient with Dr. Seaman's information for follow-up as this appears to be a chronic condition and not acute. Prescription written for hydrocodone to take as needed for severe pain. Patient instructed to return to the ER if symptoms worsened or fever develop. Patient verbalized an understanding of home care, medications, follow-up, and return to ED instructions and was in agreement with the plan of care. [] Dragon Disclaimer: Dragon Disclaimer: This electronic medical record was generated, in whole or in part, using a voice recognition dictation system. Departure Departure Impression: Primary Impression: Peripheral artery disease Disposition: HOME / SELF CARE / HOMELESS Condition: STABLE Referrals: NO PCP (PCP) SKY SEAMAN MD Patient Instructions: Peripheral Vascular Disease, [id number] Additional Instructions: Continue taking your medications as prescribed. Fill the prescription and take as needed for severe pain. Follow up with Dr. Seaman or your vascular surgeon for further evaluation. Return to the ER if your symptoms worsen or a fever develops. Scripts Hydrocodone Bit/Acetaminophen (HYDROCODONE-APAP 5-325 ) 1 Tab Tablet 1 TAB PO PRN Q6HRS PRN for PAIN for 3 Days, #10 TAB 0 Refills Prov: KEILA ÁLVAREZ APRN 08/03/20 KEILA ÁLVAREZ APRN August 03, 2020 21:46
[2020-08-03 22:11] VITALS: BP 146/85
== END 2020-08-03 22:10 | disposition home or self-care (01) ==
LOC: ER 16:12
DX: I73.9 Peripheral vascular disease, unspecified (principal); E78.00 Pure hypercholesterolemia, unspecified; I10 Essential (primary) hypertension; E11.40 Type 2 diabetes mellitus with diabetic neuropathy, unspecified; Z87.891 Personal history of nicotine dependence; Z95.1 Presence of aortocoronary bypass graft
CPT/HCPCS: 36415; 75635; 80048; 83605; 85025; 96360; 99285; J7030

== ENCOUNTER 2021-03-05 17:22 | Emergency (ER) | payer MEDICARE ==
[~2021-03-05] VITALS: Ht 177.8 cm; Wt 90.9 kg
[~2021-03-05 17:22] MED LIST changes: -CLIN150C15 PO; +CLIN150C16 PO; +HYDR-2761 PO; -LISI-517 PO; +LISI5TAB15 PO
[2021-03-05] MEDS ORDERED: IV NORMAL SALINE 1000ML BAG 1,000 ML IV ONE ×2 (22:00→23:45)
[2021-03-05] MEDS ORDERED: ACETAMINOPHEN 500 MG TABLET PO ONE (22:00)
--- NOTE | 2021-03-05 22:07 | PHYS DOC ---
Past Medical History Past Medical History: Diabetes-Type II, High Cholesterol, Hypertension, V ascular Disease, Other Additional Past Medical Histor: NEUROPATHY Past Surgical History: Coronary Bypass Surgery, Other Additional Past Surgical Histo: Open Heart at [facility] Smoking Status: Former Smoker Alcohol Use: None Drug Use: None General Adult EDM: Chief Complaint: FLU SYMPTOM HPI: HPI: Patient is a 65-year-old male who presents today with cough, body aches and overall fatigue for the last couple of days. Patient states over the last couple days has had increased cough and body aches today he started running chills and fever. He denies chest pain or shortness of air at this time. Patient states he does have the Moderna Covid vaccines x2 in May 2020, he states he received the influenza vaccine 2 weeks ago. He does not recall any direct contact with the Covid positive person at this time. His is at the bedside. Review of Systems: Review of Systems: Constitutional: chills. [] Eyes: Denies change in visual acuity. [] HENT: Denies nasal congestion or sore throat. [] Respiratory: cough denies shortness of breath. [] Cardiovascular: Denies chest pain or edema. [] GI: Denies abdominal pain, nausea, vomiting, bloody stools or diarrhea. [] : Denies dysuria. [] Musculoskeletal: body aches Integument: Denies rash. [] Neurologic: Denies headache, focal weakness or sensory changes. [] Endocrine: Denies polyuria or polydipsia. [] Lymphatic: Denies swollen glands. [] Psychiatric: Denies depression or anxiety. [] Heart Score: C/O Chest Pain: N/A Risk Factors: Risk Factors: DM, Current or recent (<one month) smoker, HTN, HLP, family history of CAD, obesity. Risk Scores: Score 0 - 3: 2.5% MACE over next 6 weeks - Discharge Home Score 4 - 6: 20.3% MACE over next 6 weeks - Admit for Clinical Observation Score 7 - 10: 72.7% MACE over next 6 weeks - Early Invasive Strategies Current Medications: Current Medications Medications (Trade) Dose Ordered Sig/Keny Start Time Stop Time Status Last Admin Dose Admin Acetaminophen (Tylenol) 1,000 mg 1X ONCE 03/05/21 22:00 03/05/21 22:01 UNV Sodium Chloride 1,000 ml @ 999 mls/hr 1X ONCE 03/05/21 22:00 03/05/21 23:00 UNV Allergies: Allergies: Allergies Coded Allergies Type Severity Reaction Last Updated Verified No Known Drug Allergies 11/30/17 No Physical Exam: PE: Constitutional: Well developed, well nourished, no acute distress, non-toxic appearance. [] HENT: Normocephalic, atraumatic, bilateral external ears normal, oropharynx moist, no oral exudates, nose normal. [] Eyes: PERRLA, EOMI, conjunctiva normal, no discharge. [] Neck: Normal range of motion, no tenderness, supple, no stridor. [] Cardiovascular:Heart rate regular rhythm, no murmur [] Lungs & Thorax: Bilateral breath sounds clear to auscultation [] Abdomen: Bowel sounds normal, soft, no tenderness, no masses, no pulsatile masses. [] Skin: Warm, dry, no erythema, no rash. [] Back: No tenderness, no CVA tenderness. [] Extremities: No tenderness, no cyanosis, no clubbing, ROM intact, no edema. [] Neurologic: Alert and oriented X 3, normal motor function, normal sensory function, no focal deficits noted. [] Psychologic: Affect normal, judgement normal, mood normal. [] Current Patient Data: Labs: Laboratory Tests Test 03/05/21 22:10 03/05/21 22:20 Influenza Type A Antigen Negative Influenza Type B Antigen Negative SARS-CoV-2 Antigen (Rapid) Positive White Blood Count 8.8 x10^3/uL Red Blood Count 4.65 x10^6/uL Hemoglobin 13.2 g/dL Hematocrit 39.7 % Mean Corpuscular Volume 85 fL Mean Corpuscular Hemoglobin 29 pg Mean Corpuscular Hemoglobin Concent 33 g/dL Red Cell Distribution Width 14.7 % Platelet Count 201 x10^3/uL Neutrophils (%) (Auto) 86 % Lymphocytes (%) (Auto) 7 % Monocytes (%) (Auto) 6 % Eosinophils (%) (Auto) 0 % Basophils (%) (Auto) 0 % Neutrophils # (Auto) 7.6 x10^3/uL Lymphocytes # (Auto) 0.6 x10^3/uL Monocytes # (Auto) 0.6 x10^3/uL Eosinophils # (Auto) 0.0 x10^3/uL Basophils # (Auto) 0.0 x10^3/uL Sodium Level 136 mmol/L Potassium Level 4.2 mmol/L Chloride Level 100 mmol/L Carbon Dioxide Level 27 mmol/L Anion Gap 9 Blood Urea Nitrogen 16 mg/dL Creatinine 1.2 mg/dL Estimated GFR (Cockcroft-Gault) 61.1 BUN/Creatinine Ratio 13 Glucose Level 213 mg/dL Calcium Level 7.9 mg/dL Total Bilirubin 0.5 mg/dL Aspartate Amino Transf (AST/SGOT) 28 U/L Alanine Aminotransferase (ALT/SGPT) 28 U/L Alkaline Phosphatase 157 U/L Total Protein 7.3 g/dL Albumin 2.9 g/dL Albumin/Globulin Ratio 0.7 Current Medications Medications (Trade) Dose Ordered Sig/Keny Route PRN Reason Start Time Stop Time Status Last Admin Dose Admin Sodium Chloride 1,000 ml @ 999 mls/hr 1X ONCE IV 03/05/21 22:00 03/05/21 23:00 DC 03/05/21 22:00 Acetaminophen (Tylenol) 1,000 mg 1X ONCE PO 03/05/21 22:00 03/05/21 22:06 DC 03/05/21 22:00 Sodium Chloride 1,000 ml @ 999 mls/hr 1X ONCE IV 03/05/21 23:45 03/06/21 00:45 03/05/21 23:45 Dexamethasone Sodium Phosphate (Decadron) 10 mg 1X ONCE IV 03/06/21 00:00 03/06/21 00:05 DC 03/06/21 00:00 Vital Signs: Vital Signs Date Time Temp Pulse Resp B/P (MAP) Pulse Ox O2 Delivery O2 Flow Rate FiO2 03/06/21 00:00 100.0 100.0 03/05/21 21:15 102.7 120 20 158/75 (102) 95 Room Air 102.7 Vital Signs Date Time Temp Pulse Resp B/P (MAP) Pulse Ox O2 Delivery O2 Flow Rate FiO2 03/05/21 21:15 102.7 120 20 158/75 (102) 95 Room Air 102.7 EKG: EKG: [] Radiology/Procedures: Radiology/Procedures: REASON: cough and body aches PROCEDURE: CHEST AP ONLY XR CHEST 1V Clinical Indication: Reason: cough and body aches Comparison: None. Findings: The cardiomediastinal silhouette is normal. There are minimal patchy airspace opacities in the right midlung and the left lung base. There is no pneumothorax. No pleural effusion is appreciated. No acute bone abnormality. IMPRESSION: There are minimal patchy airspace opacities in the right midlung and the left lung base that may be infectious/inflammatory. Electronically signed by: Kendall Tohrpe MD (03/05/2021 10:34 PM) [facility] [place] [] Course & Med Decision Making: Course & Med Decision Making Pertinent Labs and Imaging studies reviewed. (See chart for details) 2356 reassessment of patient HR 105, Temp 100.0F orally, oxygen saturations 93 to 94% on room air patient states he feels better. Will administer a second liter of normal saline, patient denies chest pain or shortness of air at this time. 0032 reassessment patient's heart rate is 96-99, sats are 91 when he is falling asleep and 94% when he is awake. Respiratory rate is 16-18. No increased work of breathing noted cap refill is less than 2 seconds. Patient states he feels much better than he did when he came in. Patient informed that he will need to treat his fevers at home with Tylenol [id number], patient also instructed to stay hydrated during this time. Patient verbalized understanding of this, patient will also be given a prescription for Zithromax to be taken at home. Patient is instructed to return to the emergency department for increased work of breathing, shortness of air, or any other concerns you may have. Mukul Disclaimer: Mukul Disclaimer: This electronic medical record was generated, in whole or in part, using a voice recognition dictation system. Departure Departure Impression: Primary Impression: COVID-19 Disposition: HOME / SELF CARE / HOMELESS Condition: STABLE Referrals: NO PCP (PCP) Additional Instructions: Zithromax as directed cool mist humidifer in bedroom while sleeping increase by mouth fluid Tyelnol as label directed for fever. Last dose of Tyelnol here in ED was at 10pm. You have been tested for or diagnosed with COVID-19. It is an infection caused by a new type of coronavirus. COVID-19 will cause cold-like or mild flu symptoms in most. It can cause more severe symptoms like problems breathing in some. There is no treatment for COVID-19. The body will clear the infection over time. Self-care will help to ease discomfort. Steps to Take: Self-Care Rest as needed. Healthy habits may help you feel better. Steps include: Choose healthy foods including fruits and vegetables. Drink water throughout the day. Get plenty of sleep each night. If you smoke, try to quit. It may ease breathing. Avoid alcohol. Keep Others Healthy The virus can spread to others. Droplets are released every time you sneeze or cough. The droplets can get into the mouth, nose, or eyes of people near you and lead to infection. To lower the chances of spreading COVID-19 to others: Stay at home until your doctor has said it is safe to leave. If you tested positive this will mean staying isolated until both of the following are true: At least 14 days have passed since the start of illness. You are free of fever for at least 72 hours without the use of medicine. During this time: - Avoid public areas, events, or transportation. Do not return to work or school until your doctor has said it is safe to do so. - Call ahead if you need to go to a medical center. Let them know you may have COVID-19. It will help them guide you where to go. They may also ask you to wear a facemask when you come to the office. - If you call for emergency medical services, let them know you may have COVID- 19. While at home: - Try to avoid close contact with others. Stay about 6 feet away. - If possible, spend most of your time in a separate room from others. - Use a face mask if you will be in close contact with others such as sharing a room or vehicle. - Have someone wipe down common surfaces in the home. Use household patient accounting representative every day on areas like doorknobs, counters, or sinks. - Cough or sneeze into a tissue. Throw the tissue away right after use. If a tissue is not available, cough or sneeze into your elbow. - Wash your hands often. Wash them after sneezing or coughing. Use soap and water and wash for at least 20 seconds. Alcohol based hand bladder cleaner can be used if soap and opal er is not available. - Do not prepare food for others. Avoid sharing personal items like forks, spoons, or toothbrushes. - Avoid close contact with pets while you are sick. There is no evidence of the virus passing to pets. This is a safety step until more is known about this virus. Isolation can be frustrating. Social interaction can help. Keep in touch with friends and family through phone and tech options. You can still interact with others in your home, just keep a safe distance of about 6 feet. Follow-up: Your doctors office will check in with you to see if there are any changes in your health. You may be asked to keep track of symptoms to share with them. They will also let you know when you are clear to be in public again. Problems to Look Out For: Contact your doctor if your recovery is not going as you expect. Get emergency care if you have problems such as: - Trouble breathing - Nonstop chest pain or pressure - Changes in awareness, confusion, or problems waking - Lips or face have bluish color - Worsening of symptoms If you think you have an emergency, call for emergency medical services right away. As [place] [facility] Scripts Azithromycin (AZITHROMYCIN TABLET) 250 Mg Tablet 1 PKG PO UD for 5 Days, #6 TAB 0 Refills 2 the first day followed by 1 for days 2-5 Prov: BENJI BARKER APRN 03/06/21 BENJI BARKER APRN Mar 05, 2021 22:07
--- NOTE | 2021-03-05 22:36 | RAD ---
XR CHEST 1V Clinical Indication: Reason: cough and body aches Comparison: None. Findings: The cardiomediastinal silhouette is normal. There are minimal patchy airspace opacities in the right midlung and the left lung base. There is no pneumothorax. No pleural effusion is appreciated. No acut e bone abnormality. IMPRESSION: There are minimal patchy airspace opacities in the right midlung and the left lung base that may be i nfectious/inflammatory. Electronically signed by: Kendall Thorpe MD (03/05/2021 10:34 PM) [facility]
[2021-03-05 22:56] LABS: BASO % 0 % (0-3); EOS % 0 % (0-3); HEMATOCRIT 39.7 % (39.0-53.0); HEMOGLOBIN 13.2 g/dL (13.0-17.5); LYMPH # 0.6 x10^3/uL (1.0-4.8); LYMPH % 7 % (24-48); MEAN CORPUSCULAR HEMOGLOBIN 29 pg (25-35); MEAN CORPUSCULAR HGB CONC 33 g/dL (31-37); MEAN CORPUSCULAR VOLUME 85 fL (79-100); MONO # 0.6 x10^3/uL (0.0-1.1); MONO % 6 % (0-9); NEUT # 7.6 x10^3/uL (1.8-7.7); NEUT % 86 % (31-73); PLATELET COUNT 201 x10^3/uL (140-400); RED BLOOD COUNT 4.65 x10^6/uL (4.30-5.70); RED CELL DISTRIBUTION WIDTH 14.7 % (11.5-14.5); WHITE BLOOD COUNT 8.8 x10^3/uL (4.0-11.0)
[2021-03-05 23:07] LABS: CALCIUM 7.9 mg/dL (8.5-10.1); CREATININE 1.2 mg/dL (0.7-1.3); GFR 61.1; POTASSIUM 4.2 mmol/L (3.5-5.1)
[2021-03-05 23:13] LABS: ALBUMIN 2.9 g/dL (3.4-5.0); ALBUMIN/GLOBULIN RATIO 0.7 (1.0-1.7); TOTAL BILIRUBIN 0.5 mg/dL (0.2-1.0); TOTAL PROTEIN 7.3 g/dL (6.4-8.2)
[2021-03-05 23:29] LABS: INFLUENZA A PATIENT NEGATIVE (NEGATIVE); INFLUENZA B PATIENT NEGATIVE (NEGATIVE)
[2021-03-06] MEDS ORDERED: DEXAMETHASONE SOD PHOS 20 MG/5 ML VIAL. IV ONE
[2021-03-06 00:31] VITALS: BP 108/54
[2021-03-06] MEDS ORDERED: AZIT250T6 PO (00:41)
== END 2021-03-06 00:31 | disposition home or self-care (01) ==
LOC: ER 17:22
DX: U07.1 COVID-19 (principal); E78.00 Pure hypercholesterolemia, unspecified; E11.40 Type 2 diabetes mellitus with diabetic neuropathy, unspecified; I10 Essential (primary) hypertension; Z87.891 Personal history of nicotine dependence; Z95.1 Presence of aortocoronary bypass graft
CPT/HCPCS: 36415; 71045; 80053; 85025; 87426; 87804; 96361; 96374; 99284; J1100; J7030

== ENCOUNTER 2021-03-08 18:05 | Inpatient (IN) | payer MEDICARE ==
[~2021-03-08] VITALS: Ht 182.9 cm; Wt 88.0 kg
[~2021-03-08 18:05] MED LIST changes: +AZIT250T6 PO
--- NOTE | 2021-03-08 18:15 | PHYS DOC ---
Past Medical History Past Medical History: Diabetes-Type II, High Cholesterol, Hypertension, V ascular Disease, Other Additional Past Medical Histor: NEUROPATHY (BENJI BARKER APRN) Past Surgical History: Coronary Bypass Surgery, Other Additional Past Surgical Histo: Open Heart at [facility] (BENJI BARKER APRN) Smoking Status: Former Smoker Alcohol Use: None Drug Use: None (BENJI BARKER APRN) General Adult HPI: HPI: Patient is a 65-year-old male that presents today with [facility] with shortness of air. Patient was seen at [facility] on March 05, 2021 and diagnosed with COVID-19, patient states that since his diagnosis he has had diarrhea and increased shortness of breath. Patient states he continues to have body aches and pains and running a fever. According to EMS patient's room air sats at the scene was 74% he was then placed on 6 L nasal cannula and transported to the hospital. Patient has had both his Pfizer vaccines and his booster. Patient is also had his influenza vaccine. (BENJI BARKER OPERATIONAL TEST MECHANIC) Review of Systems: Review of Systems: Constitutional: fever [] Eyes: Denies change in visual acuity. [] HENT: Denies nasal congestion or sore throat. [] Respiratory: shortness of breath. [] Cardiovascular: Denies chest pain or edema. [] GI: diarrhea. [] : Denies dysuria. [] Musculoskeletal: body aches [] Integument: Denies rash. [] Neurologic: Denies headache, focal weakness or sensory changes. [] Endocrine: Denies polyuria or polydipsia. [] Lymphatic: Denies swollen glands. [] Psychiatric: Denies depression or anxiety. [] (BENJI BARKER OPERATIONAL TEST MECHANIC) Heart Score: C/O Chest Pain: N/A Risk Factors: Risk Factors: DM, Current or recent (<one month) smoker, HTN, HLP, family history of CAD, obesity. Risk Scores: Score 0 - 3: 2.5% MACE over next 6 weeks - Discharge Home Score 4 - 6: 20.3% MACE over next 6 weeks - Admit for Clinical Observation Score 7 - 10: 72.7% MACE over next 6 weeks - Early Invasive Strategies (DERBENJI QUINTEROS APRN) Allergies: Allergies: Allergies Coded Allergies Type Severity Reaction Last Updated Verified No Known Drug Allergies 11/30/17 No (BENJI BARKER APRN) Physical Exam: PE: Constitutional: moderate distress, toxic appearance HENT: Normocephalic, atraumatic, bilateral external ears normal, oropharynx moist, no oral exudates, nose normal. [] Eyes: PERRLA, EOMI, conjunctiva normal, no discharge. [] Neck: Normal range of motion, no tenderness, supple, no stridor. [] Cardiovascular:Heart rate regular rhythm, no murmur [] Lungs & Thorax: Bilateral breath sounds diminshed, cough noted [] Abdomen: Bowel sounds normal, soft, no tenderness, no masses, no pulsatile masses. [] Skin: Warm, dry, pale no erythema, no rash. [] Back: No tenderness, no CVA tenderness. [] Extremities: No tenderness, no cyanosis, no clubbing, ROM intact, no edema. [] Neurologic: Alert and oriented X 3, normal motor function, normal sensory function, no focal deficits noted. [] Psychologic: Affect normal, judgement normal, mood normal. [] (BENJI BARKER APRN) Current Patient Data: Labs: Laboratory Tests Test 03/08/21 18:13 White Blood Count 10.0 x10^3/uL Red Blood Count 5.02 x10^6/uL Hemoglobin 14.2 g/dL Hematocrit 42.2 % Mean Corpuscular Volume 84 fL Mean Corpuscular Hemoglobin 28 pg Mean Corpuscular Hemoglobin Concent 34 g/dL Red Cell Distribution Width 14.6 % Platelet Count 187 x10^3/uL Neutrophils (%) (Auto) 92 % Lymphocytes (%) (Auto) 6 % Monocytes (%) (Auto) 2 % Eosinophils (%) (Auto) 0 % Basophils (%) (Auto) 0 % Neutrophils # (Auto) 9.2 x10^3/uL Lymphocytes # (Auto) 0.6 x10^3/uL Monocytes # (Auto) 0.2 x10^3/uL Eosinophils # (Auto) 0.0 x10^3/uL Basophils # (Auto) 0.0 x10^3/uL Sodium Level 132 mmol/L Potassium Level 4.3 mmol/L Chloride Level 96 mmol/L Carbon Dioxide Level 25 mmol/L Anion Gap 11 Blood Urea Nitrogen 14 mg/dL Creatinine 1.4 mg/dL Estimated GFR (Cockcroft-Gault) 51.2 BUN/Creatinine Ratio 10 Glucose Level 355 mg/dL Lactic Acid Level 2.8 mmol/L Calcium Level 7.6 mg/dL Total Bilirubin 0.5 mg/dL Aspartate Amino Transf (AST/SGOT) 60 U/L Alanine Aminotransferase (ALT/SGPT) 24 U/L Alkaline Phosphatase 213 U/L Troponin I High Sensitivity 169 ng/L VP-[id number]-I-Type Natriuretic Peptide 5627 pg/mL Total Protein 7.1 g/dL Albumin 2.4 g/dL Albumin/Globulin Ratio 0.5 Current Medications Medications (Trade) Dose Ordered Sig/[place] Route PRN Reason Start Time Stop Time Status Last Admin Dose Admin Dexamethasone Sodium Phosphate (Decadron) 10 mg 1X ONCE IV 03/08/21 19:30 03/08/21 19:31 DC 03/08/21 20:54 Sodium Chloride 1,000 ml @ 1,000 mls/hr 1X ONCE IV 03/08/21 19:30 03/08/21 20:29 DC 03/08/21 20:54 Iohexol (Omnipaque 350 Mg/ml) 80 ml 1X ONCE IV 03/08/21 20:00 03/08/21 20:01 DC 03/08/21 20:26 Info (CONTRAST GIVEN -- Rx MONITORING) 1 each PRN DAILY PRN MC SEE COMMENTS 03/08/21 20:00 03/10/21 19:59 Vital Signs: Vital Signs Date Time Temp Pulse Resp B/P (MAP) Pulse Ox O2 Delivery O2 Flow Rate FiO2 03/08/21 18:05 99.0 104 28 207/92 (130) 93 Nasal Cannula 5.0 99.0 Vital Signs Date Time Temp Pulse Resp B/P (MAP) Pulse Ox O2 Delivery O2 Flow Rate FiO2 03/08/21 18:05 99.0 104 28 207/92 (130) 93 Nasal Cannula 5.0 99.0 (BENJI BARKER APRN) EKG: EKG: EKG done at [address] Hoffman at 1830 no STEMI sinus rhythm heart rate of 100 RI interval of 126 ms with a QT interval of 436 ms [] (BENJI BARKER APRN) Radiology/Procedures: Radiology/Procedures: REASON: SOA PROCEDURE: CHEST AP ONLY EXAMINATION: Chest radiograph. VIEWS: Single AP view of the chest COMPARISON: Chest radiograph from 02/25/2021 INDICATION:65 years, Male, shortness of air. FINDINGS: Stable cardiomediastinal silhouette. Median sternotomy wires are intact. Worsening patchy and confluent bilateral airspace opacities. No pleural effusion or pneumothorax. No acute osseous process. IMPRESSION: Worsening bilateral multifocal pneumonia. Electronically signed by: Hakan Gudino DO (03/08/2021 7:22 PM) [facility] REASON: Shortness of breath PROCEDURE: CT ANGIOGRAPHY CHEST EXAMINATION: CT Pulmonary Angiogram with IV contrast INDICATION: Reason: Shortness of breath / Spl. Instructions: IV omni 350 80 mls / History: COMPARISON: Same day chest radiograph TECHNIQUE: Using helical technique, CT data from the thoracic inlet through the upper abdomen was obtained during rapid IV contrast infusion. The examination was timed to the pulmonary arterial system to generate a CT angiographic study. 3D MIPS, sagittal and coronal reformats were generated. FINDINGS: Vascular: The study is diagnostic to the level of the subsegmental pulmonary arteries. Adequate opacification of pulmonary arteries. Pulmonary arteries: No evidence of acute or chronic pulmonary embolism. Main pulmonary trunk is dilated up to 3.3 cm can be seen in setting of pulmonary hypertension. Thoracic aorta: Normal in size. Coronary arteries: Normal origins. Mild calcified coronary atherosclerosis. Systemic veins: Within normal limits. Heart: The heart is normal in size. No pericardial effusion. Chest: Lungs/Pleura: Patchy and confluent groundglass and consolidative opacities in the apical bibasilar gradient. Small bilateral pleural effusions with associated passive atelectasis. Central airways clear. No pneumothorax. Mediastinum: Numerous enlarged mediastinal and hilar adenopathy measuring up to 1.6 cm in short axis in the right lower paratracheal station and up to 1.2 cm in short axis in the right hilum and up to 1 cm in short axis in the left hilum. The visualized thyroid and the esophagus are unremarkable Axilla/Soft Tissue: No supraclavicular or axillary adenopathy. Regional soft tissues are within normal limits. Benign bilateral gynecomastia. Upper abdomen: The visualized upper abdomen appears unremarkable. Bones: No evidence of acute fractures or aggressive osseous lesions. Median sternotomy wires are intact. IMPRESSION: Vascular: 1. No evidence of pulmonary embolism. 2. Main portal trunk is dilated up to 3.3 cm, suggestive of pulmonary arterial hypertension. Chest: 1. Findings of multifocal pneumonia with small bilateral parapneumonic effusions. 2. Numerous enlarged likely reactive mediastinal and hilar lymph nodes. Recommend follow to resolution to exclude underlying malignancy. PRQS compliance statement - One or more of the following individualized dose reduction techniques were utilized for this study: 1. Automated exposure control 2. Adjustment of the mA and/or kV according to patient size 3. Use of iterative reconstruction technique Electronically signed by: Hakan Gudino DO (03/08/2021 8:53 PM) [facility] [] (BENJI BARKER APRN) Course & Med Decision Making: Course & Med Decision Making Pertinent Labs and Imaging studies reviewed. (See chart for details) [id number] Stephenson patient will be admitted for respiratory distress and pneumonia patient will be placed on antibiotics as well. (BENJI BARKER APRN) Dragon Disclaimer: Dragon Disclaimer: This electronic medical record was generated, in whole or in part, using a voice recognition dictation system. (BENJI BARKER APRN) Departure Departure Impression: Primary Impression: Respiratory distress Additional Impressions: COVID-19 Pneumonia Qualified Codes: J18.9 - Pneumonia, unspecified organism Disposition: ADMITTED INPATIENT Admitting Physician: MICHELLE (BENJI BARKER APRN) Condition: STABLE Referrals: NO PCP (PCP) Attending Signature Attending Signature I have reviewed the PA/PTA's note and plan of care. I was available for consultation as needed during the patient's visit in the emergency department. I agree with the clinical impression, plan, and disposition. (EMILIA HOFFMAN DO) BENJI BARKER APRN Mar 08, 2021 18:15 EMILIA HOFFMAN DO Mar 09, 2021 01:41
[2021-03-08 18:29] LABS: BASO % 0 % (0-3); EOS % 0 % (0-3); HEMATOCRIT 42.2 % (39.0-53.0); HEMOGLOBIN 14.2 g/dL (13.0-17.5); LYMPH # 0.6 x10^3/uL (1.0-4.8); LYMPH % 6 % (24-48); MEAN CORPUSCULAR HEMOGLOBIN 28 pg (25-35); MEAN CORPUSCULAR HGB CONC 34 g/dL (31-37); MEAN CORPUSCULAR VOLUME 84 fL (79-100); MONO # 0.2 x10^3/uL (0.0-1.1); MONO % 2 % (0-9); NEUT # 9.2 x10^3/uL (1.8-7.7); NEUT % 92 % (31-73); PLATELET COUNT 187 x10^3/uL (140-400); RED BLOOD COUNT 5.02 x10^6/uL (4.30-5.70); RED CELL DISTRIBUTION WIDTH 14.6 % (11.5-14.5)
[2021-03-08 18:43] LABS: CALCIUM 7.6 mg/dL (8.5-10.1); CREATININE 1.4 mg/dL (0.7-1.3); GFR 51.2; POTASSIUM 4.3 mmol/L (3.5-5.1)
[2021-03-08 18:58] LABS: ALBUMIN 2.4 g/dL (3.4-5.0); ALBUMIN/GLOBULIN RATIO 0.5 (1.0-1.7); TOTAL BILIRUBIN 0.5 mg/dL (0.2-1.0); TOTAL PROTEIN 7.1 g/dL (6.4-8.2)
--- NOTE | 2021-03-08 19:24 | RAD ---
EXAMINATION: Chest radiograph. VIEWS: Single AP view of the chest COMPARISON: Chest radiograph from 02/25/2021 INDICATION:65 years, Male, shortness of air. FINDINGS: Stable cardiomediastinal silhouette. Median sternotomy wires are intact. Worsening patchy and conflue nt bilateral airspace opacities. No pleural effusion or pneumothorax. No acute osseous process. IMPRESSION: Worsening bilateral multifocal pneumonia. Electronically signed by: Hakan Gudino DO (03/08/2021 7:22 PM) [facility]
[2021-03-08] MEDS ORDERED: IV NORMAL SALINE 1000ML BAG 1,000 ML IV ONE (19:30)
[2021-03-08] MEDS ORDERED: DEXAMETHASONE SOD PHOS 20 MG/5 ML VIAL. IV ONE (19:30)
[2021-03-08] MEDS ORDERED: CONTRAST GIVEN. MC PRN (20:00)
[2021-03-08] MEDS ORDERED: IOHEXOL 350 MG/ML 100 ML VIAL. IV ONE (20:00)
--- NOTE | 2021-03-08 20:56 | RAD ---
EXAMINATION: CT Pulmonary Angiogram with IV contrast INDICATION: Reason: Shortness of breath / Spl. Instructions: IV omni 350 80 mls / History: COMPARISON: Same day chest radiograph TECHNIQUE: Using helical technique, CT data from the thoracic inlet through the upper abdomen was obt ained during rapid IV contrast infusion. The examination was timed to the pulmonary arterial system t o generate a CT angiographic study. 3D MIPS, sagittal and coronal reformats were generated. FINDINGS: Vascular: The study is diagnostic to the level of the subsegmental pulmonary arteries. Adequate opacification o f pulmonary arteries. Pulmonary arteries: No evidence of acute or chronic pulmonary embolism. Main pulmonary trunk is dilat ed up to 3.3 cm can be seen in setting of pulmonary hypertension. Thoracic aorta: Normal in size. Coronary arteries: Normal origins. Mild calcified coronary atherosclerosis. Systemic veins: Within normal limits. Heart: The heart is normal in size. No pericardial effusion. Chest: Lungs/Pleura: Patchy and confluent groundglass and consolidative opacities in the apical bibasilar gr adient. Small bilateral pleural effusions with associated passive atelectasis. Central airways clear. No pneumothorax. Mediastinum: Numerous enlarged mediastinal and hilar adenopathy measuring up to 1.6 cm in short axis in the right lower paratracheal station and up to 1.2 cm in short axis in the right hilum and up to 1 cm in short axis in the left hilum. The visualized thyroid and the esophagus are unremarkable Axilla/Soft Tissue: No supraclavicular or axillary adenopathy. Regional soft tissues are within aiden l limits. Benign bilateral gynecomastia. Upper abdomen: The visualized upper abdomen appears unremarkable. Bones: No evidence of acute fractures or aggressive osseous lesions. Median sternotomy wires are inta ct. IMPRESSION: Vascular: 1. No evidence of pulmonary embolism. 2. Main portal trunk is dilated up to 3.3 cm, suggestive of pulmonary arterial hypertension. Chest: 1. Findings of multifocal pneumonia with small bilateral parapneumonic effusions. 2. Numerous enlarged likely reactive mediastinal and hilar lymph nodes. Recommend follow to resolutio n to exclude underlying malignancy. PRQS compliance statement - One or more of the following individualized dose reduction techniques wer e utilized for this study: 1. Automated exposure control 2. Adjustment of the mA and/or kV according to patient size 3. Use of iterative reconstruction technique Electronically signed by: Hakan Gudino DO (03/08/2021 8:53 PM) [facility]
[2021-03-08] MEDS ORDERED: cefTRIAXone IV Push 1 GM VIAL. IVP ONE (21:30)
[2021-03-08] MEDS ORDERED: DOXYCYCLINE HYCLATE 100 MG in IV DEXTROSE 5% 100ML 100 ML IV ONE (21:30)
[2021-03-08 23:50] VITALS: BP 169/80
--- NOTE | 2021-03-09 02:55 | EKG ---
[facility] [address] [place] [address] Test Date: 2021-03-08 Test Time: 18:27:07 Pat Name: PORFIRIO VILLAGOMEZ Department: Room: 521 1 Gender: M Ship Scaler: : 1955 Requested By: BENJI BARKER Order Number: [id number] Reading MD: Jomar Silver Measurements Intervals [place] Rate: 100 P: 43 DE: 126 QRS: 50 QRSD: 86 T: 34 QT: 336 QTc: 436 Interpretive Statements SINUS RHYTHM LEFT ATRIAL ABNORMALITY Electronically Signed On 03-10-2021 10:20:28 PARTS ADVISOR by Jomar Silver
[2021-03-09 03:57] VITALS: BP 158/72
[2021-03-09 07:00] VITALS: BP 161/71
[2021-03-09] MEDS ORDERED: HYDROcodone/APAP 5/325MG 1 TAB TABLET PO PRN (10:00)
[2021-03-09] MEDS ORDERED: IV NORMAL SALINE 1000ML BAG 1,000 ML IV ONE (10:00)
[2021-03-09] MEDS ORDERED: DEXTROSE 50% 25 GM / 50ML DISP.SYRIN. IV PRN (10:00)
--- NOTE | 2021-03-09 10:07 | PDOC1 ---
History and Physical Date of Admission Date of Admission DATE: 03/09/21 TIME: 10:02 Source Source: Chart review, Patient History of Present Illness History of Present Illness Mr. Hameed is a 65-year-old male admit with hypoxia and COVID, 7 days of weaknes and cough, Brought by EMS with shortness of air, weakness diarrhea. . Patient was in the ER 03/05, dx with COVID-19, started outpateint tx. Now complins of diarrhea and increased shortness of breath. Patient states he continues to have body aches and pains and running a fever. He can barely eat bites this AM, and is sitting with loose yellow stool on his chuch in bed, markedly weak IN field Sa02 was 74% he was then placed on 6 L nasal cannula Past Medical History Cardiovascular: CAD, HTN, Other Pulmonary: No pertinent hx CENTRAL NERVOUS SYSTEM: Periperal neuropathy GI: GERD Heme/Onc: No pertinent hx Hepatobiliary: No pertinent hx Psych: No pertinent hx Musculoskeletal: Other Rheumatologic: No pertinent hx Infectious disease: No pertinent hx Renal/: No pertinent hx Endocrine: Diabetes Past Surgical History Past Surgical History: CABG Family History Family History: Coronary Artery Disease Social History Smoke: No ALCOHOL: none Drugs: None Current Problem List Problem List Problems Medical Problems: (1) COVID-19 Status: Acute (2) Pneumonia Status: Acute (3) Respiratory distress Status: Acute Current Medications Current Medications Current Medications Dexamethasone Sodium Phosphate (Decadron) 10 mg 1X ONCE IV Last administered on 03/08/21at 20:54; Start 03/08/21 at 19:30; Stop 03/08/21 at 19:31; Status DC Sodium Chloride 1,000 ml @ 1,000 mls/hr 1X ONCE IV Last administered on 03/08/21at 20:54; Start 03/08/21 at 19:30; Stop 03/08/21 at 20:29; Status DC Iohexol (Omnipaque 350 Mg/ml) 80 ml 1X ONCE IV Last administered on 03/08/21at 20:26; Start 03/08/21 at 20:00; Stop 03/08/21 at 20:01; Status DC Info (CONTRAST GIVEN -- Rx MONITORING) 1 each PRN DAILY PRN MC SEE COMMENTS; Start 03/08/21 at 20:00; Stop 03/10/21 at 19:59 Ceftriaxone Sodium (Rocephin) 1 gm 1X ONCE IVP Last administered on 03/08/21at 22:16; Start 03/08/21 at 21:30; Stop 03/08/21 at 21:31; Status DC Doxycycline Hyclate 100 mg/ Dextrose 100 ml @ 50 mls/hr 1X ONCE IV Last administered on 03/08/21at 22:16; Start 03/08/21 at 21:30; Stop 03/08/21 at 23:29; Status DC Dexamethasone Sodium Phosphate (Decadron) 6 mg DAILY IVP ; Start 03/09/21 at 10:30 Ascorbic Acid (Vitamin C) 1,000 mg DAILY PO ; Start 03/09/21 at 10:30 Zinc Sulfate (Orazinc) 220 mg DAILY PO ; Start 03/09/21 at 10:30 Enoxaparin Sodium (Lovenox Per Pharmacy Prophylaxis Dosing) 1 each PRN DAILY PRN MC SEE COMMENTS; Start 03/09/21 at 10:00 Ceftriaxone Sodium (Rocephin) 1 gm Q24H IVP ; Start 03/09/21 at 21:00 Doxycycline Hyclate (Vibra-Tab) 100 mg BID PO ; Start 03/09/21 at 10:30 Sodium Chloride 1,000 ml @ 100 mls/hr 1X ONCE IV ; Start 03/09/21 at 10:00; Stop 03/09/21 at 19:59 Aspirin (Aspirin Chewable) 81 mg DAILY PO ; Start 03/09/21 at 10:30 Chlorhexidine Gluconate (Peridex) 15 ml BID SWSP ; Start 03/09/21 at 10:30 Clopidogrel Bisulfate (Plavix) 75 mg DAILYWBKFT PO ; Start 03/09/21 at 10:30 Duloxetine HCl (Cymbalta) 30 mg QHS PO ; Start 03/09/21 at 21:00 Acetaminophen/ Hydrocodone Bitart (Lortab 5/325) 1 tab PRN Q6HRS PRN PO PAIN; Start 03/09/21 at 10:00 Lisinopril (Prinivil) 20 mg DAILY PO ; Start 03/09/21 at 10:30 Gabapentin (Neurontin) 800 mg Q8HRS PO ; Start 03/09/21 at 14:00 Non-Formulary Medication (Glipizide ) 1 tab BID PO ; Start 03/09/21 at 21:00; Stop 03/09/21 at 10:00; Status DC Non-Formulary Medication (Sitagliptin Phos/Metformin Hcl (Janumet 50-1,000 Mg Tablet)) 1 tab BID PO ; Start 03/09/21 at 21:00; Stop 03/09/21 at 10:00; Status DC Insulin Glargine (Lantus Syringe) 40 unit DAILY SQ ; Start 03/09/21 at 10:00 Insulin Human Lispro (HumaLOG) 15 units TIDAC SQ ; Start 03/09/21 at 11:30 Insulin Human Lispro (HumaLOG) 0-9 UNITS TIDWMEALS SQ ; Start 03/09/21 at 12:00 Dextrose (Dextrose 50%-Water Syringe) 12.5 gm PRN Q15MIN PRN IV SEE COMMENTS; Start 03/09/21 at 10:00 Active Scripts Active Azithromycin Tablet (Azithromycin) 250 Mg Tablet 1 Pkg PO UD 5 Days 2 the first day followed by 1 for days 2-5 Hydrocodone-Apap 5-325 (Hydrocodone Bit/Acetaminophen) 1 Tab Tablet 1 Tab PO PRN Q6HRS PRN 3 Days Keflex (Cephalexin) 500 Mg Capsule 1 Cap PO TID 10 Days [place] 5-325 Tablet (Acetaminophen/Hydrocodone Bitart) 1 Each Tablet 1 Tab PO PRN Q6HRS PRN Keflex (Cephalexin) 500 Mg Capsule 1 Cap PO TID 7 Days Peridex (Chlorhexidine Gluconate) 15 Ml Mouthwash 15 Ml SWSP BID 7 Days [place] teeth before using to prevent staining. Swish for approximately 30 seconds before spitting. Naproxen 500 Mg Tablet 1 Tab PO BID PRN 10 Days Clopidogrel (Clopidogrel Bisulfate) 75 Mg Tablet 75 Mg PO DAILYWBKFT 30 Days Reported Viagra (Sildenafil Citrate) 100 Mg Tablet 1 Tab PO PRN DAILY Nystatin 15 Gm Powder 1 Wali TP BID Mupirocin Ointment (Mupirocin) 22 Gm Oint...g. 1 Wali TP DAILY Lisinopril 20 Mg Tablet 1 Tab PO DAILY Gabapentin 800 Mg Tablet 800 Mg PO Q8HRS Atorvastatin Calcium 80 Mg Tablet 1 Tab PO DAILY Janumet 50-1,000 Mg Tablet (Sitagliptin Phos/Metformin Hcl) 1 Each Tablet 1 Tab PO BID Pentoxifylline 400 Mg Tablet.er 400 Mg PO TID Cymbalta (Duloxetine Hcl) 30 Mg Capsule.dr 30 Mg PO QHS Glipizide 10 Mg Tablet 1 Tab PO BID Aspirin 81 Mg Tab.chew 1 Tab PO DAILY Allergies Allergies: Coded Allergies: No Known Drug Allergies (Unverified , 11/30/17) ROS General: YES: Chills, Fatigue, Malaise PSYCHOLOGICAL ROS: No: Anxiety, Behavioral Disorder, Concentration difficultie, Decreased libido, Depression, Disorientation, Hallucinations, Hostility, Irritablity, Memory difficulties, Mood Swings, Obsessive thoughts, Physical abuse, Sexual abuse, Sleep disturbances, Suicidal ideation, Other Eyes: No Blurry vision, No Decreased vision, No Double vision, No Dry eyes, No Excessive tearing, No Eye Pain, No Itchy Eyes, No Loss of vision, No Photophobia, No Scotomata, No Uses contacts, No Uses glasses, No Other HEENT: YES: Heacaches Cardiovascular: No Chest Pain, No Palpitations, No Orthopnea, No Paroxysmal Noc. Dyspnea, No Edema, No Lt Headedness, No Other Gastrointestinal: Yes Nausea, Yes Abdominal Pain, Yes Diarrhea; No Vomiting, No Constipation, No Melena, No Hematochezia, No Other Genitourinary: No Dysuria, No Frequency, No Incontinence, No Hematuria, No Retention, No Discharge, No Urgency, No Pain, No Flank Pain, No Other, No , No , No , No , No , No , No Musculoskeletal: No Gait Disturbance, No Joint Pain, No Joint Stiffness, No Joint Swelling, No Muscle Pain, No Muscular Weakness, No Pain In:, No Swelling In:, No Other Neurological: No Behavorial Changes, No Bowel/Bladder ControlChng, No Confusion, No Dizziness, No Gait Disturbance, No Headaches, No Impaired Coord/balance, No Memory Loss, No Numbness/Tingling, No Seizures, No Speech Problems, No Tremors, No Visual Changes, No Weakness, No Other Skin: Yes Dry Skin; No Hair Changes, No Lumps, No Mole Changes, No Mottling, No Nail Changes, No Pruritus, No Rash, No Skin Lesion Changes, No Other, No Acne Physical Exam General: Alert, Cooperative, moderate distress HEENT: PERRLA, Mucous membr. moist/pink Lungs: Clear to auscultation, Normal air movement Heart: S1S2, no gallops Abdomen: Soft Rectal Exam: not examined Extremities: No clubbing, No edema Skin: No rashes, No significant lesion Neuro: Normal speech, Normal tone, Cranial nerves 3-12 NL Psych/Mental Status: Mood NL Vitals Vitals Vital Signs Date Time Temp Pulse Resp B/P (MAP) Pulse Ox O2 Delivery O2 Flow Rate FiO2 03/09/21 07:00 98.1 77 22 161/71 (101) 91 Nasal Cannula 6.0 98.1 Labs Labs Laboratory Tests Test 03/08/21 18:13 03/09/21 04:00 White Blood Count 10.0 x10^3/uL (4.0-11.0) Red Blood Count 5.02 x10^6/uL (4.30-5.70) Hemoglobin 14.2 g/dL (13.0-17.5) Hematocrit 42.2 % (39.0-53.0) Mean Corpuscular Volume 84 fL (79-100) Mean Corpuscular Hemoglobin 28 pg (25-35) Mean Corpuscular Hemoglobin Concent 34 g/dL (31-37) Red Cell Distribution Width 14.6 % (11.5-14.5) Platelet Count 187 x10^3/uL (140-400) Neutrophils (%) (Auto) 92 % (31-73) Lymphocytes (%) (Auto) 6 % (24-48) Monocytes (%) (Auto) 2 % (0-9) Eosinophils (%) (Auto) 0 % (0-3) Basophils (%) (Auto) 0 % (0-3) Neutrophils # (Auto) 9.2 x10^3/uL (1.8-7.7) Lymphocytes # (Auto) 0.6 x10^3/uL (1.0-4.8) Monocytes # (Auto) 0.2 x10^3/uL (0.0-1.1) Eosinophils # (Auto) 0.0 x10^3/uL (0.0-0.7) Basophils # (Auto) 0.0 x10^3/uL (0.0-0.2) Sodium Level 132 mmol/L (136-145) Potassium Level 4.3 mmol/L (3.5-5.1) Chloride Level 96 mmol/L (98-107) Carbon Dioxide Level 25 mmol/L (21-32) Anion Gap 11 (6-14) Blood Urea Nitrogen 14 mg/dL (8-26) Creatinine 1.4 mg/dL (0.7-1.3) Estimated GFR (Cockcroft-Gault) 51.2 BUN/Creatinine Ratio 10 (6-20) Glucose Level 355 mg/dL (70-99) Lactic Acid Level 2.8 mmol/L (0.4-2.0) 1.8 mmol/L (0.4-2.0) Calcium Level 7.6 mg/dL (8.5-10.1) Total Bilirubin 0.5 mg/dL (0.2-1.0) Aspartate Amino Transf (AST/SGOT) 60 U/L (15-37) Alanine Aminotransferase (ALT/SGPT) 24 U/L (16-63) Alkaline Phosphatase 213 U/L (46-116) Troponin I High Sensitivity 169 ng/L (4-75) 162 ng/L (4-75) PK-Lgw-D-Type Natriuretic Peptide 5627 pg/mL (0-124) Total Protein 7.1 g/dL (6.4-8.2) Albumin 2.4 g/dL (3.4-5.0) Albumin/Globulin Ratio 0.5 (1.0-1.7) Laboratory Tests Test 03/08/21 18:13 03/09/21 04:00 White Blood Count 10.0 x10^3/uL (4.0-11.0) Red Blood Count 5.02 x10^6/uL (4.30-5.70) Hemoglobin 14.2 g/dL (13.0-17.5) Hematocrit 42.2 % (39.0-53.0) Mean Corpuscular Volume 84 fL (79-100) Mean Corpuscular Hemoglobin 28 pg (25-35) Mean Corpuscular Hemoglobin Concent 34 g/dL (31-37) Red Cell Distribution Width 14.6 % (11.5-14.5) Platelet Count 187 x10^3/uL (140-400) Neutrophils (%) (Auto) 92 % (31-73) Lymphocytes (%) (Auto) 6 % (24-48) Monocytes (%) (Auto) 2 % (0-9) Eosinophils (%) (Auto) 0 % (0-3) Basophils (%) (Auto) 0 % (0-3) Neutrophils # (Auto) 9.2 x10^3/uL (1.8-7.7) Lymphocytes # (Auto) 0.6 x10^3/uL (1.0-4.8) Monocytes # (Auto) 0.2 x10^3/uL (0.0-1.1) Eosinophils # (Auto) 0.0 x10^3/uL (0.0-0.7) Basophils # (Auto) 0.0 x10^3/uL (0.0-0.2) Sodium Level 132 mmol/L (136-145) Potassium Level 4.3 mmol/L (3.5-5.1) Chloride Level 96 mmol/L (98-107) Carbon Dioxide Level 25 mmol/L (21-32) Anion Gap 11 (6-14) Blood Urea Nitrogen 14 mg/dL (8-26) Creatinine 1.4 mg/dL (0.7-1.3) Estimated GFR (Cockcroft-Gault) 51.2 BUN/Creatinine Ratio 10 (6-20) Glucose Level 355 mg/dL (70-99) Lactic Acid Level 2.8 mmol/L (0.4-2.0) 1.8 mmol/L (0.4-2.0) Calcium Level 7.6 mg/dL (8.5-10.1) Total Bilirubin 0.5 mg/dL (0.2-1.0) Aspartate Amino Transf (AST/SGOT) 60 U/L (15-37) Alanine Aminotransferase (ALT/SGPT) 24 U/L (16-63) Alkaline Phosphatase 213 U/L (46-116) Troponin I High Sensitivity 169 ng/L (4-75) 162 ng/L (4-75) ZB-Zod-P-Type Natriuretic Peptide 5627 pg/mL (0-124) Total Protein 7.1 g/dL (6.4-8.2) Albumin 2.4 g/dL (3.4-5.0) Albumin/Globulin Ratio 0.5 (1.0-1.7) VTE Prophylaxis Ordered VTE Prophylaxis Devices: No VTE Pharmacological Prophylaxi: Yes Assessment/Plan Assessment/Plan acute hypoxic respiratory failure COVID pneumonia DM2, acute hyperglycemia eakness diarrhea Justifications for Admission Other Justification CHRIS LOYOLA MD Mar 09, 2021 10:07
[2021-03-09] MEDS ORDERED: LOPERAMIDE 2 MG CAPSULE PO ONE (10:30)
[2021-03-09 11:00] VITALS: BP 174/82
[2021-03-09] MEDS ORDERED: REMDESIVIR LOAD in IV NORMAL SALINE 250ML TV IV ONE (11:00)
[2021-03-09] MEDS: ZINC SULFATE 220 MG CAPSULE. PO SCH (11:21)
[2021-03-09] MEDS: ASCORBIC ACID 1,000 MG TABLET PO SCH (11:22)
[2021-03-09] MEDS: LACTOBACILLUS RHAMNOSUS GG 1 CAPSULE. PO SCH ×2 (11:22→21:25)
[2021-03-09] MEDS: ASPIRIN CHEWABLE 81 MG TABLET. PO SCH (11:22)
[2021-03-09] MEDS: CHLORHEXIDINE 0.12% 15 ML MOUTHWASH. SWSP SCH ×2 (11:22→21:25)
[2021-03-09] MEDS: LISINOPRIL 20 MG TABLET PO SCH (11:22)
[2021-03-09] MEDS: ENOXAPARIN 40 MG/0.4 ML SYRINGE. SQ SCH (11:23)
[2021-03-09] MEDS: DEXAMETHASONE SOD PHOS 4 MG/ML VIAL IVP SCH (11:23)
[2021-03-09] MEDS: CLOPIDOGREL BISULFATE 75 MG TABLET PO SCH (11:23)
[2021-03-09] MEDS: DOXYCYCLINE HYCLATE 100 MG TABLET PO SCH ×2 (11:57→21:26)
[2021-03-09] MEDS: INSULIN LISPRO 300 UNITS/3 ML VIAL. SQ SCH ×4 (12:59→18:02)
[2021-03-09] MEDS: INSULIN GLARGINE SYRINGE. SQ SCH (13:00)
[2021-03-09] MEDS: GABAPENTIN 400 MG CAPSULE. PO SCH ×2 (13:12→21:31)
[2021-03-09] MEDS: metroNIDAZOLE 500 MG TABLET PO SCH ×2 (13:12→21:31)
[2021-03-09 15:00] VITALS: BP 161/89
[2021-03-09 19:00] VITALS: BP 107/62
[2021-03-09] MEDS ORDERED: CALCIUM CARBONATE 500 MG TAB.CHEW PO PRN (19:15)
[2021-03-09] MEDS ORDERED: cefTRIAXone IV Push 1 GM VIAL. IVP SCH (21:00)
[2021-03-09] MEDS ORDERED: GLIPIZIDE PO SCH (21:00)
[2021-03-09] MEDS ORDERED: NON FORMULARY ITEM (Sitagliptin Phos/Metformin Hcl (Janumet 50-1,000 Mg Tablet) 1 TAB) PO SCH (21:00)
[2021-03-09] MEDS: BENZONATATE 100 MG CAPSULE. PO SCH (21:26)
[2021-03-09] MEDS: DULoxetine HCL 30 MG CAPSULE.DR PO SCH (21:26)
[2021-03-09 22:58] VITALS: BP 124/64
[2021-03-10 03:05] VITALS: BP 151/79
[2021-03-10] MEDS: metroNIDAZOLE 500 MG TABLET PO SCH ×3 (06:25→21:56)
[2021-03-10] MEDS: GABAPENTIN 400 MG CAPSULE. PO SCH ×3 (06:25→21:56)
[2021-03-10 07:00] VITALS: BP 159/85
[2021-03-10] MEDS: DOXYCYCLINE HYCLATE 100 MG TABLET PO SCH ×2 (08:15→21:56)
[2021-03-10] MEDS: CLOPIDOGREL BISULFATE 75 MG TABLET PO SCH (08:15)
[2021-03-10] MEDS: ASPIRIN CHEWABLE 81 MG TABLET. PO SCH (08:16)
[2021-03-10] MEDS: BENZONATATE 100 MG CAPSULE. PO SCH ×3 (08:16→21:56)
[2021-03-10] MEDS: LISINOPRIL 20 MG TABLET PO SCH (08:17)
[2021-03-10] MEDS: DEXAMETHASONE SOD PHOS 4 MG/ML VIAL IVP SCH (08:17)
[2021-03-10] MEDS: LACTOBACILLUS RHAMNOSUS GG 1 CAPSULE. PO SCH ×2 (08:17→21:56)
[2021-03-10] MEDS: ASCORBIC ACID 1,000 MG TABLET PO SCH (09:04)
[2021-03-10] MEDS: ZINC SULFATE 220 MG CAPSULE. PO SCH (09:04)
[2021-03-10] MEDS: INSULIN GLARGINE SYRINGE. SQ SCH ×2 (09:09→21:55)
[2021-03-10] MEDS: INSULIN LISPRO 300 UNITS/3 ML VIAL. SQ SCH ×6 (09:11→18:00)
[2021-03-10 11:00] VITALS: BP 140/66
[2021-03-10] MEDS: CHLORHEXIDINE 0.12% 15 ML MOUTHWASH. SWSP SCH ×2 (11:47→21:54)
[2021-03-10] MEDS: REMDESIVIR 100mg in NORMAL SALINE 250ML X 4 DAYS IV SCH (11:48)
[2021-03-10] MEDS: ENOXAPARIN 40 MG/0.4 ML SYRINGE. SQ SCH (11:48)
--- NOTE | 2021-03-10 12:02 | PDOC ---
PULMONARY PROGRESS NOTES DATE: 03/10/21 TIME: 12:02 Vitals Vital Signs Date Time Temp Pulse Resp B/P (MAP) Pulse Ox O2 Delivery O2 Flow Rate FiO2 03/10/21 08:17 80 159/85 03/10/21 07:00 97.5 20 93 Nasal Cannula 6.0 97.5 Lungs: Clear Cardiovascular: S1, S2 Labs Laboratory Tests Test 03/08/21 18:13 03/09/21 04:00 03/09/21 12:03 03/09/21 17:32 White Blood Count 10.0 x10^3/uL (4.0-11.0) Red Blood Count 5.02 x10^6/uL (4.30-5.70) Hemoglobin 14.2 g/dL (13.0-17.5) Hematocrit 42.2 % (39.0-53.0) Mean Corpuscular Volume 84 fL (79-100) Mean Corpuscular Hemoglobin 28 pg (25-35) Mean Corpuscular Hemoglobin Concent 34 g/dL (31-37) Red Cell Distribution Width 14.6 % (11.5-14.5) Platelet Count 187 x10^3/uL (140-400) Neutrophils (%) (Auto) 92 % (31-73) Lymphocytes (%) (Auto) 6 % (24-48) Monocytes (%) (Auto) 2 % (0-9) Eosinophils (%) (Auto) 0 % (0-3) Basophils (%) (Auto) 0 % (0-3) Neutrophils # (Auto) 9.2 x10^3/uL (1.8-7.7) Lymphocytes # (Auto) 0.6 x10^3/uL (1.0-4.8) Monocytes # (Auto) 0.2 x10^3/uL (0.0-1.1) Eosinophils # (Auto) 0.0 x10^3/uL (0.0-0.7) Basophils # (Auto) 0.0 x10^3/uL (0.0-0.2) Sodium Level 132 mmol/L (136-145) Potassium Level 4.3 mmol/L (3.5-5.1) Chloride Level 96 mmol/L (98-107) Carbon Dioxide Level 25 mmol/L (21-32) Anion Gap 11 (6-14) Blood Urea Nitrogen 14 mg/dL (8-26) Creatinine 1.4 mg/dL (0.7-1.3) Estimated GFR (Cockcroft-Gault) 51.2 BUN/Creatinine Ratio 10 (6-20) Glucose Level 355 mg/dL (70-99) Lactic Acid Level 2.8 mmol/L (0.4-2.0) 1.8 mmol/L (0.4-2.0) Calcium Level 7.6 mg/dL (8.5-10.1) Total Bilirubin 0.5 mg/dL (0.2-1.0) Aspartate Amino Transf (AST/SGOT) 60 U/L (15-37) Alanine Aminotransferase (ALT/SGPT) 24 U/L (16-63) Alkaline Phosphatase 213 U/L (46-116) Troponin I High Sensitivity 169 ng/L (4-75) 162 ng/L (4-75) LQ-Oio-E-Type Natriuretic Peptide 5627 pg/mL (0-124) Total Protein 7.1 g/dL (6.4-8.2) Albumin 2.4 g/dL (3.4-5.0) Albumin/Globulin Ratio 0.5 (1.0-1.7) Glucose (Fingerstick) 349 mg/dL (70-99) 297 mg/dL (70-99) Test 03/09/21 20:20 03/10/21 07:52 03/10/21 11:10 Glucose (Fingerstick) 252 mg/dL (70-99) 293 mg/dL (70-99) 293 mg/dL (70-99) Laboratory Tests Test 03/09/21 12:03 03/09/21 17:32 03/09/21 20:20 03/10/21 07:52 Glucose (Fingerstick) 349 mg/dL (70-99) 297 mg/dL (70-99) 252 mg/dL (70-99) 293 mg/dL (70-99) Test 03/10/21 11:10 Glucose (Fingerstick) 293 mg/dL (70-99) Medications Active Scripts Medications Dose Route/Sig Max Daily Dose Days Date Category Dose Instructions Azithromycin Tablet (Azithromycin) 250 Mg Tablet 1 Pkg PO UD 5 03/06/21 Rx 2 the first day followed by 1 for days 2-5 Hydrocodone-Apap 5-325 (Hydrocodone Bit/Acetaminophen) 1 Tab Tablet 1 Tab PO PRN Q6HRS PRN 3 08/03/20 Rx Keflex (Cephalexin) 500 Mg Capsule 1 Cap PO TID 10 09/04/19 Rx [place] 5-325 Tablet (Acetaminophen/Hydrocodone Bitart) 1 Each Tablet 1 Tab PO PRN Q6HRS PRN 06/13/19 Rx Keflex (Cephalexin) 500 Mg Capsule 1 Cap PO TID 7 02/09/19 Rx Peridex (Chlorhexidine Gluconate) 15 Ml Mouthwash 15 Ml SWSP BID 7 02/09/19 Rx [place] teeth before using to prevent staining. Swish for approximately 30 seconds before spitting. Naproxen 500 Mg Tablet 1 Tab PO BID PRN 10 02/09/19 Rx Clopidogrel (Clopidogrel Bisulfate) 75 Mg Tablet 75 Mg PO DAILYWBKFT 30 08/30/18 Rx Viagra (Sildenafil Citrate) 100 Mg Tablet 1 Tab PO PRN DAILY 08/30/18 Reported Nystatin 15 Gm Powder 1 [place] TP BID 08/30/18 Reported Mupirocin Ointment (Mupirocin) 22 Gm Oint...g. 1 [place] TP DAILY 08/30/18 Reported Lisinopril 20 Mg Tablet 1 Tab PO DAILY 08/30/18 Reported Gabapentin 800 Mg Tablet 800 Mg PO Q8HRS 08/30/18 Reported Atorvastatin Calcium 80 Mg Tablet 1 Tab PO DAILY 08/30/18 Reported Janumet 50-1,000 Mg Tablet (Sitagliptin Phos/Metformin Hcl) 1 Each Tablet 1 Tab PO BID 11/05/17 Reported Pentoxifylline 400 Mg Tablet.er 400 Mg PO TID 11/05/17 Reported Cymbalta (Duloxetine Hcl) 30 Mg Capsule.dr 30 Mg PO QHS 11/05/17 Reported Glipizide 10 Mg Tablet 1 Tab PO BID 11/05/17 Reported Aspirin 81 Mg Tab.chew 1 Tab PO DAILY 01/02/15 Reported Impression . Full consult dictated Respiratory failure COVID-19 viral pneumonia See orders FARHAT PRUITT MD Mar 10, 2021 12:02
--- NOTE | 2021-03-10 13:52 | PDOC ---
[employer] PROGRESS NOTE Date of Service DOS: DATE: 03/10/21 TIME: 13:50 Chief Complaint Chief Complaint acute hypoxic respiratory failure COVID pneumonia DM2, acute hyperglycemia acute weakness diarrhea History of Present Illness History of Present Illness increase the lantus and SSI and meal add percocet and Robitsussin with codeine he looks worse, weak, can barely eat, poor po intake, on IV fluids, blood sugar high, may transtion to PPN if that improved, Vitals/I&O Vitals/I&O: Vital Signs Date Time Temp Pulse Resp B/P (MAP) Pulse Ox O2 Delivery O2 Flow Rate FiO2 03/10/21 11:00 98.1 74 18 140/66 (90) 95 Nasal Cannula 6.0 98.1 I & O 03/09/21 03/09/21 03/10/21 15:00 23:00 07:00 Intake Total 480 ml 240 ml 0 ml Output Total 200 ml Balance 480 ml 40 ml 0 ml Physical Exam General: Alert, Cooperative, moderate distress Lungs: Clear Abdomen: Soft Extremities: No clubbing, No edema Skin: No rashes, No significant lesion Labs Labs: Laboratory Tests Test 03/09/21 17:32 03/09/21 20:20 03/10/21 07:52 03/10/21 11:10 Glucose (Fingerstick) 297 mg/dL (70-99) 252 mg/dL (70-99) 293 mg/dL (70-99) 293 mg/dL (70-99) Assessment and Plan Assessmemt and Plan Problems Medical Problems: (1) COVID-19 Status: Acute (2) Pneumonia Status: Acute (3) Respiratory distress Status: Acute Comment Review of Relevant I have reviewed the following items saravanan (where applicable) has been applied. Medications: Current Medications Medications (Trade) Dose Ordered Sig/[place] Route PRN Reason Start Time Stop Time Status Last Admin Dose Admin Ceftriaxone Sodium (Rocephin) 1 gm Q24H IVP 03/09/21 21:00 03/10/21 12:02 DC 03/09/21 21:34 Duloxetine HCl (Cymbalta) 30 mg QHS PO 03/09/21 21:00 03/09/21 21:26 Gabapentin (Neurontin) 800 mg Q8HRS PO 03/09/21 14:00 03/10/21 06:25 Metronidazole (Flagyl) 500 mg Q8HRS PO 03/09/21 14:00 03/10/21 06:25 Remdesivir 100 mg/ Sodium Chloride 230 ml @ 460 mls/hr Q24H IV 03/10/21 11:00 03/13/21 11:29 03/10/21 11:48 Benzonatate (Tessalon Perle) 100 mg [id number] PO 03/09/21 21:00 03/10/21 08:16 Justifications for Admission Other Justification CHRIS LOYOLA MD Mar 10, 2021 13:51
[2021-03-10] MEDS: guaiFENesin/CODEINE 100mg/10mg 5 ML LIQUID PO PRN (14:55)
[2021-03-10 15:00] VITALS: BP 154/79
[2021-03-10] MEDS: oxyCODONE/APAP 5/325 1 TAB TABLET PO PRN (18:02)
[2021-03-10 19:00] VITALS: BP 130/74
--- NOTE | 2021-03-10 20:51 | CONS ---
DATE OF CONSULTATION: 03/10/2021 ATTENDING PHYSICIAN: Oneida Stephenson MD. REASON FOR CONSULTATION: The patient is seen in pulmonary consultation at the request of Dr. Stephenson for acute hypoxemic respiratory failure related to COVID-19 viral pneumonia. HISTORY OF PRESENT ILLNESS: The patient is a 65-year-old. Seven days ago, he had weakness and cough, was brought into Emergency Room on 03/05. Tested positive for COVID, was discharged home. At that time, he did not require any oxygen supplementation. The patient represented, now is on 6 liters of oxygen. He underwent a CT angiogram, which I personally reviewed. There is no evidence of pulmonary emboli. There are bilateral infiltrates compatible with viral pneumonia. There are also small bilateral pleural effusions. The patient has not been vaccinated. He normally does not wear oxygen at home. He denies current hemoptysis. No chest pain or pressure. PAST MEDICAL HISTORY: Coronary artery disease, hypertension, gastroesophageal reflux, diabetes. PAST SURGICAL HISTORY: Status post coronary artery bypass grafting. FAMILY HISTORY: Coronary artery disease. ALLERGIES: No known drug allergies. REVIEW OF SYSTEMS: As indicated above, otherwise a 10-point system was reviewed and negative. CURRENT MEDICATIONS: List was reviewed. He is on remdesivir, ceftriaxone. PHYSICAL EXAMINATION: VITAL SIGNS: Stable. O2 saturation was greater than 92%. LUNGS: Anteriorly were clear. CARDIOVASCULAR: Regular rate and rhythm with S1, S2, no S3. ABDOMEN: Soft, nontender, nondistended. EXTREMITIES: No clubbing, cyanosis or edema. LABORATORY DATA: CT reviewed. Labs were reviewed. White count was normal, hemoglobin and hematocrit were noted. IMPRESSION: 1. Acute exacerbation of chronic obstructive pulmonary disease secondary to COVID-19 viral pneumonia. 2. COVID-19 viral pneumonia, acute respiratory distress syndrome. 3. Coronary artery disease, status post coronary artery bypass grafting. 4. Diabetes. PLAN: 1. Continue support with oxygen supplementation. 2. Dexamethasone. 3. Finish course of remdesivir. 4. Discontinue Rocephin. Continue doxycycline. 5. DVT prophylaxis. 6. Monitor blood sugars. I do appreciate the privilege in sharing in the patient's care. LUZ/DUKE/SUPA DR: Terence TID: [id number]
[2021-03-10] MEDS: DULoxetine HCL 30 MG CAPSULE.DR PO SCH (21:56)
[2021-03-10 23:00] VITALS: BP 178/89
[2021-03-11 03:00] VITALS: BP 150/82
[2021-03-11] MEDS: metroNIDAZOLE 500 MG TABLET PO SCH ×3 (06:10→21:42)
[2021-03-11] MEDS: GABAPENTIN 400 MG CAPSULE. PO SCH ×3 (06:11→21:42)
[2021-03-11 07:00] VITALS: BP 143/68
[2021-03-11 07:24] LABS: BASO % 0 % (0-3); EOS % 0 % (0-3); HEMATOCRIT 43.6 % (39.0-53.0); HEMOGLOBIN 14.1 g/dL (13.0-17.5); LYMPH % 6 % (24-48); MEAN CORPUSCULAR HEMOGLOBIN 27 pg (25-35); MEAN CORPUSCULAR HGB CONC 32 g/dL (31-37); MEAN CORPUSCULAR VOLUME 84 fL (79-100); MONO # 1.3 x10^3/uL (0.0-1.1); MONO % 7 % (0-9); NEUT # 14.8 x10^3/uL (1.8-7.7); NEUT % 87 % (31-73); PLATELET COUNT 293 x10^3/uL (140-400); RED BLOOD COUNT 5.21 x10^6/uL (4.30-5.70); RED CELL DISTRIBUTION WIDTH 15.2 % (11.5-14.5); WHITE BLOOD COUNT 17.1 x10^3/uL (4.0-11.0)
[2021-03-11 08:00] LABS: ALBUMIN 1.9 g/dL (3.4-5.0); ALBUMIN/GLOBULIN RATIO 0.5 (1.0-1.7); CALCIUM 7.7 mg/dL (8.5-10.1); CREATININE 1.2 mg/dL (0.7-1.3); GFR 61.1; POTASSIUM 3.9 mmol/L (3.5-5.1); TOTAL BILIRUBIN 0.4 mg/dL (0.2-1.0); TOTAL PROTEIN 5.6 g/dL (6.4-8.2)
[2021-03-11] MEDS: CHLORHEXIDINE 0.12% 15 ML MOUTHWASH. SWSP SCH ×2 (08:26→21:42)
[2021-03-11] MEDS: DOXYCYCLINE HYCLATE 100 MG TABLET PO SCH ×2 (08:27→21:42)
[2021-03-11] MEDS: LACTOBACILLUS RHAMNOSUS GG 1 CAPSULE. PO SCH ×2 (08:27→21:42)
[2021-03-11] MEDS: CLOPIDOGREL BISULFATE 75 MG TABLET PO SCH (08:27)
[2021-03-11] MEDS: ASCORBIC ACID 1,000 MG TABLET PO SCH (08:27)
[2021-03-11] MEDS: ASPIRIN CHEWABLE 81 MG TABLET. PO SCH (08:27)
[2021-03-11] MEDS: BENZONATATE 100 MG CAPSULE. PO SCH ×3 (08:27→21:42)
[2021-03-11] MEDS: ZINC SULFATE 220 MG CAPSULE. PO SCH (08:27)
[2021-03-11] MEDS: DEXAMETHASONE SOD PHOS 4 MG/ML VIAL IVP SCH (08:28)
--- NOTE | 2021-03-11 08:58 | PDOC ---
PULMONARY PROGRESS NOTES DATE: 03/11/21 TIME: 08:58 Subjective Patient continues to be short of air, requires oxygen, currently on 5 L. Vitals Vital Signs Date Time Temp Pulse Resp B/P (MAP) Pulse Ox O2 Delivery O2 Flow Rate FiO2 03/11/21 03:00 97.3 72 20 150/82 (104) 93 Nasal Cannula 6.0 97.3 Comments Patient seen during the COVID-19 viral pandemic, visual inspection not utilizing accessory muscles no paroxysmal breathing pattern no rashes Lungs: Clear Cardiovascular: S1, S2 Labs Laboratory Tests Test 03/09/21 12:03 03/09/21 17:32 03/09/21 20:20 03/10/21 07:52 Glucose (Fingerstick) 349 mg/dL (70-99) 297 mg/dL (70-99) 252 mg/dL (70-99) 293 mg/dL (70-99) Test 03/10/21 11:10 03/10/21 16:33 03/10/21 19:32 03/11/21 06:35 Glucose (Fingerstick) 293 mg/dL (70-99) 213 mg/dL (70-99) 199 mg/dL (70-99) White Blood Count 17.1 x10^3/uL (4.0-11.0) Red Blood Count 5.21 x10^6/uL (4.30-5.70) Hemoglobin 14.1 g/dL (13.0-17.5) Hematocrit 43.6 % (39.0-53.0) Mean Corpuscular Volume 84 fL (79-100) Mean Corpuscular Hemoglobin 27 pg (25-35) Mean Corpuscular Hemoglobin Concent 32 g/dL (31-37) Red Cell Distribution Width 15.2 % (11.5-14.5) Platelet Count 293 x10^3/uL (140-400) Neutrophils (%) (Auto) 87 % (31-73) Lymphocytes (%) (Auto) 6 % (24-48) Monocytes (%) (Auto) 7 % (0-9) Eosinophils (%) (Auto) 0 % (0-3) Basophils (%) (Auto) 0 % (0-3) Neutrophils # (Auto) 14.8 x10^3/uL (1.8-7.7) Lymphocytes # (Auto) 1.0 x10^3/uL (1.0-4.8) Monocytes # (Auto) 1.3 x10^3/uL (0.0-1.1) Eosinophils # (Auto) 0.0 x10^3/uL (0.0-0.7) Basophils # (Auto) 0.0 x10^3/uL (0.0-0.2) Sodium Level 145 mmol/L (136-145) Potassium Level 3.9 mmol/L (3.5-5.1) Chloride Level 109 mmol/L (98-107) Carbon Dioxide Level 22 mmol/L (21-32) Anion Gap 14 (6-14) Blood Urea Nitrogen 36 mg/dL (8-26) Creatinine 1.2 mg/dL (0.7-1.3) Estimated GFR (Cockcroft-Gault) 61.1 BUN/Creatinine Ratio 30 (6-20) Glucose Level 155 mg/dL (70-99) Calcium Level 7.7 mg/dL (8.5-10.1) Total Bilirubin 0.4 mg/dL (0.2-1.0) Aspartate Amino Transf (AST/SGOT) 32 U/L (15-37) Alanine Aminotransferase (ALT/SGPT) 20 U/L (16-63) Alkaline Phosphatase 137 U/L (46-116) Total Protein 5.6 g/dL (6.4-8.2) Albumin 1.9 g/dL (3.4-5.0) Albumin/Globulin Ratio 0.5 (1.0-1.7) Laboratory Tests Test 03/10/21 11:10 03/10/21 16:33 03/10/21 19:32 03/11/21 06:35 Glucose (Fingerstick) 293 mg/dL (70-99) 213 mg/dL (70-99) 199 mg/dL (70-99) White Blood Count 17.1 x10^3/uL (4.0-11.0) Red Blood Count 5.21 x10^6/uL (4.30-5.70) Hemoglobin 14.1 g/dL (13.0-17.5) Hematocrit 43.6 % (39.0-53.0) Mean Corpuscular Volume 84 fL (79-100) Mean Corpuscular Hemoglobin 27 pg (25-35) Mean Corpuscular Hemoglobin Concent 32 g/dL (31-37) Red Cell Distribution Width 15.2 % (11.5-14.5) Platelet Count 293 x10^3/uL (140-400) Neutrophils (%) (Auto) 87 % (31-73) Lymphocytes (%) (Auto) 6 % (24-48) Monocytes (%) (Auto) 7 % (0-9) Eosinophils (%) (Auto) 0 % (0-3) Basophils (%) (Auto) 0 % (0-3) Neutrophils # (Auto) 14.8 x10^3/uL (1.8-7.7) Lymphocytes # (Auto) 1.0 x10^3/uL (1.0-4.8) Monocytes # (Auto) 1.3 x10^3/uL (0.0-1.1) Eosinophils # (Auto) 0.0 x10^3/uL (0.0-0.7) Basophils # (Auto) 0.0 x10^3/uL (0.0-0.2) Sodium Level 145 mmol/L (136-145) Potassium Level 3.9 mmol/L (3.5-5.1) Chloride Level 109 mmol/L (98-107) Carbon Dioxide Level 22 mmol/L (21-32) Anion Gap 14 (6-14) Blood Urea Nitrogen 36 mg/dL (8-26) Creatinine 1.2 mg/dL (0.7-1.3) Estimated GFR (Cockcroft-Gault) 61.1 BUN/Creatinine Ratio 30 (6-20) Glucose Level 155 mg/dL (70-99) Calcium Level 7.7 mg/dL (8.5-10.1) Total Bilirubin 0.4 mg/dL (0.2-1.0) Aspartate Amino Transf (AST/SGOT) 32 U/L (15-37) Alanine Aminotransferase (ALT/SGPT) 20 U/L (16-63) Alkaline Phosphatase 137 U/L (46-116) Total Protein 5.6 g/dL (6.4-8.2) Albumin 1.9 g/dL (3.4-5.0) Albumin/Globulin Ratio 0.5 (1.0-1.7) Medications Active Scripts Medications Dose Route/Sig Max Daily Dose Days Date Category Dose Instructions Azithromycin Tablet (Azithromycin) 250 Mg Tablet 1 Pkg PO UD 5 03/06/21 Rx 2 the first day followed by 1 for days 2-5 Hydrocodone-Apap 5-325 (Hydrocodone Bit/Acetaminophen) 1 Tab Tablet 1 Tab PO PRN Q6HRS PRN 3 08/03/20 Rx Keflex (Cephalexin) 500 Mg Capsule 1 Cap PO TID 10 09/04/19 Rx [place] 5-325 Tablet (Acetaminophen/Hydrocodone Bitart) 1 Each Tablet 1 Tab PO PRN Q6HRS PRN 06/13/19 Rx Keflex (Cephalexin) 500 Mg Capsule 1 Cap PO TID 7 02/09/19 Rx Peridex (Chlorhexidine Gluconate) 15 Ml Mouthwash 15 Ml SWSP BID 7 02/09/19 Rx [place] teeth before using to prevent staining. Swish for approximately 30 seconds before spitting. Naproxen 500 Mg Tablet 1 Tab PO BID PRN 10 02/09/19 Rx Clopidogrel (Clopidogrel Bisulfate) 75 Mg Tablet 75 Mg PO DAILYWBKFT 30 08/30/18 Rx Viagra (Sildenafil Citrate) 100 Mg Tablet 1 Tab PO PRN DAILY 08/30/18 Reported Nystatin 15 Gm Powder 1 Wali TP BID 08/30/18 Reported Mupirocin Ointment (Mupirocin) 22 Gm Oint...g. 1 Wali TP DAILY 08/30/18 Reported Lisinopril 20 Mg Tablet 1 Tab PO DAILY 08/30/18 Reported Gabapentin 800 Mg Tablet 800 Mg PO Q8HRS 08/30/18 Reported Atorvastatin Calcium 80 Mg Tablet 1 Tab PO DAILY 08/30/18 Reported Janumet 50-1,000 Mg Tablet (Sitagliptin Phos/Metformin Hcl) 1 Each Tablet 1 Tab PO BID 11/05/17 Reported Pentoxifylline 400 Mg Tablet.er 400 Mg PO TID 11/05/17 Reported Cymbalta (Duloxetine Hcl) 30 Mg Capsule.dr 30 Mg PO QHS 11/05/17 Reported Glipizide 10 Mg Tablet 1 Tab PO BID 11/05/17 Reported Aspirin 81 Mg Tab.chew 1 Tab PO DAILY 01/02/15 Reported Impression . IMPRESSION: 1. Acute exacerbation of chronic obstructive pulmonary disease secondary to COVID-19 viral pneumonia. 2. COVID-19 viral pneumonia, acute respiratory distress syndrome. 3. Coronary artery disease, status post coronary artery bypass grafting. 4. Diabetes. Plan . Updated 03/11 Continue oxygen supplementation Finish course of remdesivir Dexamethasone Empiric antibiotics DVT prophylaxis Monitor blood sugars PLAN: 1. Continue support with oxygen supplementation. 2. Dexamethasone. 3. Finish course of remdesivir. 4. Discontinue Rocephin. Continue doxycycline. 5. DVT prophylaxis. 6. Monitor blood sugars. I do appreciate the privilege in sharing in the patient's care. FARHAT PRUITT MD Mar 11, 2021 08:58
[2021-03-11] MEDS: LISINOPRIL 20 MG TABLET PO SCH (09:00)
[2021-03-11 09:24] LABS: % ATYL 1 % (0-0); % BANDS 2 % (0-9); % LYMPHS 6 % (24-48); % MONOS 3 % (0-10); % SEGS 88 % (35-66)
[2021-03-11 09:25] LABS: PLT ESTIMATE ADEQUATE (ADEQUATE)
[2021-03-11] MEDS: guaiFENesin/CODEINE 100mg/10mg 5 ML LIQUID PO PRN (09:52)
[2021-03-11] MEDS: INSULIN LISPRO 300 UNITS/3 ML VIAL. SQ SCH ×6 (10:19→18:02)
[2021-03-11] MEDS: INSULIN GLARGINE SYRINGE. SQ SCH ×2 (10:20→21:48)
[2021-03-11] MEDS: REMDESIVIR 100mg in NORMAL SALINE 250ML X 4 DAYS IV SCH (10:23)
[2021-03-11] MEDS: ENOXAPARIN 40 MG/0.4 ML SYRINGE. SQ SCH (10:24)
--- NOTE | 2021-03-11 10:47 | NUR ---
SW following. Discussed with RN, pt from home with , 6L (does not use oxygen at home), cardiac diet, independent, COVID-19 positive. Pulmonology following. RN advised no SW needs at this time. SW will continue to follow.
[2021-03-11 11:00] VITALS: BP 158/77
--- NOTE | 2021-03-11 11:30 | PDOC ---
[employer] PROGRESS NOTE Date of Service DOS: DATE: 03/11/21 TIME: 11:27 Chief Complaint Chief Complaint acute hypoxic respiratory failure COVID+ pneumonia DM2, acute hyperglycemia acute weakness diarrhea History of Present Illness History of Present Illness 03/11/2021 Pt seen and examined Discussed with RN Chart reviewed Continue COVID protocol with decadron, remdesivir, Vit C and Zinc increase the lantus and SSI and meal add percocet and Robitsussin with codeine he looks worse, weak, can barely eat, poor po intake, on IV fluids, blood sugar high, may transtion to PPN if that improved, Vitals/I&O Vitals/I&O: Vital Signs Date Time Temp Pulse Resp B/P (MAP) Pulse Ox O2 Delivery O2 Flow Rate FiO2 03/11/21 11:00 97.3 80 20 158/77 (104) 85 Nasal Cannula 6.0 97.3 I & O 03/10/21 03/10/21 03/11/21 15:00 23:00 07:00 Intake Total 120 ml Output Total 700 ml 400 ml Balance -700 ml 120 ml -400 ml Physical Exam General: Alert, Cooperative, moderate distress Lungs: Clear Abdomen: Soft Extremities: No clubbing, No edema Skin: No rashes, No significant lesion Labs Labs: Laboratory Tests Test 03/10/21 16:33 03/10/21 19:32 03/11/21 06:35 03/11/21 10:01 Glucose (Fingerstick) 213 mg/dL (70-99) 199 mg/dL (70-99) 188 mg/dL (70-99) White Blood Count 17.1 x10^3/uL (4.0-11.0) Red Blood Count 5.21 x10^6/uL (4.30-5.70) Hemoglobin 14.1 g/dL (13.0-17.5) Hematocrit 43.6 % (39.0-53.0) Mean Corpuscular Volume 84 fL (79-100) Mean Corpuscular Hemoglobin 27 pg (25-35) Mean Corpuscular Hemoglobin Concent 32 g/dL (31-37) Red Cell Distribution Width 15.2 % (11.5-14.5) Platelet Count 293 x10^3/uL (140-400) Neutrophils (%) (Auto) 87 % (31-73) Lymphocytes (%) (Auto) 6 % (24-48) Monocytes (%) (Auto) 7 % (0-9) Eosinophils (%) (Auto) 0 % (0-3) Basophils (%) (Auto) 0 % (0-3) Neutrophils # (Auto) 14.8 x10^3/uL (1.8-7.7) Lymphocytes # (Auto) 1.0 x10^3/uL (1.0-4.8) Monocytes # (Auto) 1.3 x10^3/uL (0.0-1.1) Eosinophils # (Auto) 0.0 x10^3/uL (0.0-0.7) Basophils # (Auto) 0.0 x10^3/uL (0.0-0.2) Segmented Neutrophils % 88 % (35-66) Band Neutrophils % 2 % (0-9) Lymphocytes % 6 % (24-48) Atypical Lymphocytes % (Manual) 1 % (0-0) Monocytes % 3 % (0-10) Platelet Estimate Adequate (ADEQUATE) Large Platelets Few Sodium Level 145 mmol/L (136-145) Potassium Level 3.9 mmol/L (3.5-5.1) Chloride Level 109 mmol/L (98-107) Carbon Dioxide Level 22 mmol/L (21-32) Anion Gap 14 (6-14) Blood Urea Nitrogen 36 mg/dL (8-26) Creatinine 1.2 mg/dL (0.7-1.3) Estimated GFR (Cockcroft-Gault) 61.1 BUN/Creatinine Ratio 30 (6-20) Glucose Level 155 mg/dL (70-99) Calcium Level 7.7 mg/dL (8.5-10.1) Total Bilirubin 0.4 mg/dL (0.2-1.0) Aspartate Amino Transf (AST/SGOT) 32 U/L (15-37) Alanine Aminotransferase (ALT/SGPT) 20 U/L (16-63) Alkaline Phosphatase 137 U/L (46-116) Total Protein 5.6 g/dL (6.4-8.2) Albumin 1.9 g/dL (3.4-5.0) Albumin/Globulin Ratio 0.5 (1.0-1.7) Test 03/11/21 11:23 Glucose (Fingerstick) 205 mg/dL (70-99) Assessment and Plan Assessmemt and Plan Problems Medical Problems: (1) COVID-19 Status: Acute (2) Pneumonia Status: Acute (3) Respiratory distress Status: Acute acute hypoxic respiratory failure COVID+ pneumonia DM2, acute hyperglycemia acute weakness diarrhea Plan: Continue COVID protocol with decadron + remdesivir Continue Vitamin C and Zinc Supplemental O2 as needed, wean as tolerated Continue robutussin and codeine Comment Review of Relevant I have reviewed the following items saravanan (where applicable) has been applied. Medications: Current Medications Medications (Trade) Dose Ordered Sig/[place] Route PRN Reason Start Time Stop Time Status Last Admin Dose Admin Insulin Glargine (Lantus Syringe) 30 unit BID SQ 03/10/21 21:00 03/11/21 10:20 Insulin Human Lispro (HumaLOG) 20 units TIDAC SQ 03/10/21 16:30 03/11/21 10:19 Oxycodone/ Acetaminophen (Percocet 5/325) 1 tab PRN Q4HRS PRN PO PAIN, 2nd CHOICE 03/10/21 14:00 03/10/21 18:02 Guaifenesin/ Codeine Phosphate (Robitussin Ac) 5 ml PRN Q6HRS PRN PO COUGH 03/10/21 14:00 03/11/21 09:52 Justifications for Admission Other Justification FELICIA SANTA III DO Mar 11, 2021 11:30
[2021-03-11 14:58] VITALS: BP 126/83
[2021-03-11 19:53] VITALS: BP 149/74
[2021-03-11] MEDS: DULoxetine HCL 30 MG CAPSULE.DR PO SCH (21:42)
[2021-03-11 23:36] VITALS: BP 148/74
[2021-03-12 03:55] VITALS: BP 153/78
[2021-03-12] MEDS: GABAPENTIN 400 MG CAPSULE. PO SCH ×3 (06:15→21:34)
[2021-03-12] MEDS: metroNIDAZOLE 500 MG TABLET PO SCH ×3 (06:16→21:34)
[2021-03-12 07:00] VITALS: BP 134/77
[2021-03-12] MEDS: INSULIN LISPRO 300 UNITS/3 ML VIAL. SQ SCH ×6 (07:30→18:02)
[2021-03-12] MEDS: ZINC SULFATE 220 MG CAPSULE. PO SCH (10:08)
[2021-03-12] MEDS: CHLORHEXIDINE 0.12% 15 ML MOUTHWASH. SWSP SCH ×2 (10:08→21:34)
[2021-03-12] MEDS: ASPIRIN CHEWABLE 81 MG TABLET. PO SCH (10:08)
[2021-03-12] MEDS: LISINOPRIL 20 MG TABLET PO SCH (10:09)
[2021-03-12] MEDS: INSULIN GLARGINE SYRINGE. SQ SCH ×2 (10:15→21:51)
[2021-03-12] MEDS: guaiFENesin/CODEINE 100mg/10mg 5 ML LIQUID PO PRN (10:18)
[2021-03-12] MEDS: oxyCODONE/APAP 5/325 1 TAB TABLET PO PRN ×3 (10:18→19:35)
[2021-03-12] MEDS: LACTOBACILLUS RHAMNOSUS GG 1 CAPSULE. PO SCH ×2 (10:18→21:34)
[2021-03-12] MEDS: BENZONATATE 100 MG CAPSULE. PO SCH ×3 (10:18→21:34)
[2021-03-12] MEDS: DOXYCYCLINE HYCLATE 100 MG TABLET PO SCH ×2 (10:19→21:34)
[2021-03-12] MEDS: CLOPIDOGREL BISULFATE 75 MG TABLET PO SCH (10:19)
[2021-03-12] MEDS: ASCORBIC ACID 1,000 MG TABLET PO SCH (10:19)
[2021-03-12] MEDS: DEXAMETHASONE SOD PHOS 4 MG/ML VIAL IVP SCH (10:20)
[2021-03-12 11:00] VITALS: BP 161/78
--- NOTE | 2021-03-12 11:00 | PDOC ---
[employer] PROGRESS NOTE Date of Service DOS: DATE: 03/12/21 TIME: 10:59 Chief Complaint Chief Complaint acute hypoxic respiratory failure COVID+ pneumonia DM2, acute hyperglycemia acute weakness diarrhea History of Present Illness History of Present Illness 03/12/2021 Pt seen and examined Discussed with RN Chart reviewed Pt resting in bed, NAD 03/11/2021 Pt seen and examined Discussed with RN Chart reviewed Continue COVID protocol with decadron, remdesivir, Vit C and Zinc increase the lantus and SSI and meal add percocet and Robitsussin with codeine he looks worse, weak, can barely eat, poor po intake, on IV fluids, blood sugar high, may transtion to PPN if that improved, Vitals/I&O Vitals/I&O: Vital Signs Date Time Temp Pulse Resp B/P (MAP) Pulse Ox O2 Delivery O2 Flow Rate FiO2 03/12/21 10:57 90 Nasal Cannula 6.0 03/12/21 10:09 78 134/77 03/12/21 07:00 97.4 97.4 03/11/21 23:36 24 I & O 03/11/21 03/11/21 03/12/21 15:00 23:00 07:00 Intake Total 420 ml 240 ml 100 ml Output Total 100 ml 700 ml Balance 420 ml 140 ml -600 ml Physical Exam General: Alert, Cooperative, moderate distress Lungs: Clear Abdomen: Soft Extremities: No clubbing, No edema Skin: No rashes, No significant lesion Labs Labs: Laboratory Tests Test 03/11/21 11:23 03/11/21 16:39 03/11/21 20:42 03/12/21 07:23 Glucose (Fingerstick) 205 mg/dL (70-99) 144 mg/dL (70-99) 114 mg/dL (70-99) 85 mg/dL (70-99) Assessment and Plan Assessmemt and Plan Problems Medical Problems: (1) COVID-19 Status: Acute (2) Pneumonia Status: Acute (3) Respiratory distress Status: Acute acute hypoxic respiratory failure COVID+ pneumonia DM2, acute hyperglycemia acute weakness diarrhea Plan: Continue COVID protocol with decadron + remdesivir Continue Vitamin C and Zinc Supplemental O2 as needed, wean as tolerated Continue robutussin and codeine Comment Review of Relevant I have reviewed the following items saravanan (where applicable) has been applied. Justifications for Admission Other Justification FELICIA SANTA III DO Mar 12, 2021 11:00
--- NOTE | 2021-03-12 11:01 | PDOC ---
PULMONARY PROGRESS NOTES DATE: 03/12/21 TIME: 11:00 Subjective Patient continues to be short of air, requires oxygen, currently on 5 L. Vitals Vital Signs Date Time Temp Pulse Resp B/P (MAP) Pulse Ox O2 Delivery O2 Flow Rate FiO2 03/12/21 10:57 90 Nasal Cannula 6.0 03/12/21 10:09 78 134/77 03/12/21 07:00 97.4 97.4 03/11/21 23:36 24 Comments Patient seen during the COVID-19 viral pandemic, visual inspection not utilizing accessory muscles no paroxysmal breathing pattern no rashes Labs Laboratory Tests Test 03/10/21 11:10 03/10/21 16:33 03/10/21 19:32 03/11/21 06:35 Glucose (Fingerstick) 293 mg/dL (70-99) 213 mg/dL (70-99) 199 mg/dL (70-99) White Blood Count 17.1 x10^3/uL (4.0-11.0) Red Blood Count 5.21 x10^6/uL (4.30-5.70) Hemoglobin 14.1 g/dL (13.0-17.5) Hematocrit 43.6 % (39.0-53.0) Mean Corpuscular Volume 84 fL (79-100) Mean Corpuscular Hemoglobin 27 pg (25-35) Mean Corpuscular Hemoglobin Concent 32 g/dL (31-37) Red Cell Distribution Width 15.2 % (11.5-14.5) Platelet Count 293 x10^3/uL (140-400) Neutrophils (%) (Auto) 87 % (31-73) Lymphocytes (%) (Auto) 6 % (24-48) Monocytes (%) (Auto) 7 % (0-9) Eosinophils (%) (Auto) 0 % (0-3) Basophils (%) (Auto) 0 % (0-3) Neutrophils # (Auto) 14.8 x10^3/uL (1.8-7.7) Lymphocytes # (Auto) 1.0 x10^3/uL (1.0-4.8) Monocytes # (Auto) 1.3 x10^3/uL (0.0-1.1) Eosinophils # (Auto) 0.0 x10^3/uL (0.0-0.7) Basophils # (Auto) 0.0 x10^3/uL (0.0-0.2) Segmented Neutrophils % 88 % (35-66) Band Neutrophils % 2 % (0-9) Lymphocytes % 6 % (24-48) Atypical Lymphocytes % (Manual) 1 % (0-0) Monocytes % 3 % (0-10) Platelet Estimate Adequate (ADEQUATE) Large Platelets Few Sodium Level 145 mmol/L (136-145) Potassium Level 3.9 mmol/L (3.5-5.1) Chloride Level 109 mmol/L (98-107) Carbon Dioxide Level 22 mmol/L (21-32) Anion Gap 14 (6-14) Blood Urea Nitrogen 36 mg/dL (8-26) Creatinine 1.2 mg/dL (0.7-1.3) Estimated GFR (Cockcroft-Gault) 61.1 BUN/Creatinine Ratio 30 (6-20) Glucose Level 155 mg/dL (70-99) Calcium Level 7.7 mg/dL (8.5-10.1) Total Bilirubin 0.4 mg/dL (0.2-1.0) Aspartate Amino Transf (AST/SGOT) 32 U/L (15-37) Alanine Aminotransferase (ALT/SGPT) 20 U/L (16-63) Alkaline Phosphatase 137 U/L (46-116) Total Protein 5.6 g/dL (6.4-8.2) Albumin 1.9 g/dL (3.4-5.0) Albumin/Globulin Ratio 0.5 (1.0-1.7) Test 03/11/21 10:01 03/11/21 11:23 03/11/21 16:39 03/11/21 20:42 Glucose (Fingerstick) 188 mg/dL (70-99) 205 mg/dL (70-99) 144 mg/dL (70-99) 114 mg/dL (70-99) Test 03/12/21 07:23 Glucose (Fingerstick) 85 mg/dL (70-99) Laboratory Tests Test 03/11/21 11:23 03/11/21 16:39 03/11/21 20:42 03/12/21 07:23 Glucose (Fingerstick) 205 mg/dL (70-99) 144 mg/dL (70-99) 114 mg/dL (70-99) 85 mg/dL (70-99) Medications Active Scripts Medications Dose Route/Sig Max Daily Dose Days Date Category Dose Instructions Azithromycin Tablet (Azithromycin) 250 Mg Tablet 1 Pkg PO UD 5 03/06/21 Rx 2 the first day followed by 1 for days 2-5 Hydrocodone-Apap 5-325 (Hydrocodone Bit/Acetaminophen) 1 Tab Tablet 1 Tab PO PRN Q6HRS PRN 3 08/03/20 Rx Keflex (Cephalexin) 500 Mg Capsule 1 Cap PO TID 10 09/04/19 Rx [place] 5-325 Tablet (Acetaminophen/Hydrocodone Bitart) 1 Each Tablet 1 Tab PO PRN Q6HRS PRN 06/13/19 Rx Keflex (Cephalexin) 500 Mg Capsule 1 Cap PO TID 7 02/09/19 Rx Peridex (Chlorhexidine Gluconate) 15 Ml Mouthwash 15 Ml SWSP BID 7 02/09/19 Rx [place] teeth before using to prevent staining. Swish for approximately 30 seconds before spitting. Naproxen 500 Mg Tablet 1 Tab PO BID PRN 10 02/09/19 Rx Clopidogrel (Clopidogrel Bisulfate) 75 Mg Tablet 75 Mg PO DAILYWBKFT 30 08/30/18 Rx Viagra (Sildenafil Citrate) 100 Mg Tablet 1 Tab PO PRN DAILY 08/30/18 Reported Nystatin 15 Gm Powder 1 [place] TP BID 08/30/18 Reported Mupirocin Ointment (Mupirocin) 22 Gm Oint...g. 1 [place] TP DAILY 08/30/18 Reported Lisinopril 20 Mg Tablet 1 Tab PO DAILY 08/30/18 Reported Gabapentin 800 Mg Tablet 800 Mg PO Q8HRS 08/30/18 Reported Atorvastatin Calcium 80 Mg Tablet 1 Tab PO DAILY 08/30/18 Reported Janumet 50-1,000 Mg Tablet (Sitagliptin Phos/Metformin Hcl) 1 Each Tablet 1 Tab PO BID 11/05/17 Reported Pentoxifylline 400 Mg Tablet.er 400 Mg PO TID 11/05/17 Reported Cymbalta (Duloxetine Hcl) 30 Mg Capsule.dr 30 Mg PO QHS 11/05/17 Reported Glipizide 10 Mg Tablet 1 Tab PO BID 11/05/17 Reported Aspirin 81 Mg Tab.chew 1 Tab PO DAILY 01/02/15 Reported Impression . IMPRESSION: 1. Acute exacerbation of chronic obstructive pulmonary disease secondary to COVID-19 viral pneumonia. 2. COVID-19 viral pneumonia, acute respiratory distress syndrome. 3. Coronary artery disease, status post coronary artery bypass grafting. 4. Diabetes. Plan . Continue oxygen supplementation FiO2 to keep saturations 92% and above. Finish course of remdesivir Dexamethasone for total of 10 days. Empiric antibiotics DVT prophylaxis Monitor blood sugars Clinically stable. We will see him as needed. KEERTHI WITT MD Mar 12, 2021 11:01
[2021-03-12] MEDS: ENOXAPARIN 40 MG/0.4 ML SYRINGE. SQ SCH (12:42)
[2021-03-12] MEDS: REMDESIVIR 100mg in NORMAL SALINE 250ML X 4 DAYS IV SCH (12:42)
[2021-03-12 15:00] VITALS: BP 161/78
[2021-03-12 19:00] VITALS: BP 156/76
[2021-03-12] MEDS: DULoxetine HCL 30 MG CAPSULE.DR PO SCH (21:34)
[2021-03-12 23:00] VITALS: BP 141/60
[2021-03-13 03:00] VITALS: BP 161/83
[2021-03-13] MEDS: GABAPENTIN 400 MG CAPSULE. PO SCH ×3 (05:52→22:30)
[2021-03-13] MEDS: metroNIDAZOLE 500 MG TABLET PO SCH ×2 (05:52→14:02)
[2021-03-13 07:00] VITALS: BP 139/71
[2021-03-13] MEDS: INSULIN LISPRO 300 UNITS/3 ML VIAL. SQ SCH ×6 (07:30→17:56)
[2021-03-13] MEDS: INSULIN GLARGINE SYRINGE. SQ SCH ×2 (09:00→22:30)
[2021-03-13] MEDS: CHLORHEXIDINE 0.12% 15 ML MOUTHWASH. SWSP SCH ×2 (09:55→21:00)
[2021-03-13] MEDS: LACTOBACILLUS RHAMNOSUS GG 1 CAPSULE. PO SCH ×2 (09:55→22:29)
[2021-03-13] MEDS: BENZONATATE 100 MG CAPSULE. PO SCH ×3 (09:55→22:30)
[2021-03-13] MEDS: oxyCODONE/APAP 5/325 1 TAB TABLET PO PRN (09:55)
[2021-03-13] MEDS: guaiFENesin/CODEINE 100mg/10mg 5 ML LIQUID PO PRN ×2 (09:55→22:30)
[2021-03-13] MEDS: ASPIRIN CHEWABLE 81 MG TABLET. PO SCH (09:55)
[2021-03-13] MEDS: ZINC SULFATE 220 MG CAPSULE. PO SCH (09:55)
[2021-03-13] MEDS: ASCORBIC ACID 1,000 MG TABLET PO SCH (09:56)
[2021-03-13] MEDS: LISINOPRIL 20 MG TABLET PO SCH (09:56)
[2021-03-13] MEDS: DEXAMETHASONE SOD PHOS 4 MG/ML VIAL IVP SCH (09:56)
[2021-03-13] MEDS: CLOPIDOGREL BISULFATE 75 MG TABLET PO SCH (09:57)
[2021-03-13 11:00] VITALS: BP 157/80
--- NOTE | 2021-03-13 11:27 | PDOC ---
[employer] PROGRESS NOTE Date of Service DOS: DATE: 03/13/21 TIME: 11:26 Chief Complaint Chief Complaint acute hypoxic respiratory failure COVID+ pneumonia DM2, acute hyperglycemia acute weakness diarrhea History of Present Illness History of Present Illness 03/13/2021 Pt seen and examined Discussed with RN Chart reviewed Pt resting in bed, requires 15L O2 today Continue COVID protocol 03/12/2021 Pt seen and examined Discussed with RN Chart reviewed Pt resting in bed, NAD 03/11/2021 Pt seen and examined Discussed with RN Chart reviewed Continue COVID protocol with decadron, remdesivir, Vit C and Zinc increase the lantus and SSI and meal add percocet and Robitsussin with codeine he looks worse, weak, can barely eat, poor po intake, on IV fluids, blood sugar high, may transtion to PPN if that improved, Vitals/I&O Vitals/I&O: Vital Signs Date Time Temp Pulse Resp B/P (MAP) Pulse Ox O2 Delivery O2 Flow Rate FiO2 03/13/21 09:56 67 139/71 03/13/21 09:55 87 Nasal Cannula 6.0 03/13/21 07:00 97.8 18 97.8 I & O 03/12/21 03/12/21 03/13/21 15:00 23:00 07:00 Output Total 0 ml 800 ml Balance 0 ml -800 ml Physical Exam General: Alert, Cooperative, moderate distress Abdomen: Soft Extremities: No clubbing, No edema Skin: No rashes, No significant lesion Labs Labs: Laboratory Tests Test 03/12/21 17:23 03/12/21 21:05 03/13/21 07:26 03/13/21 11:14 Glucose (Fingerstick) 265 mg/dL (70-99) 221 mg/dL (70-99) 70 mg/dL (70-99) 117 mg/dL (70-99) Assessment and Plan Assessmemt and Plan Problems Medical Problems: (1) COVID-19 Status: Acute (2) Pneumonia Status: Acute (3) Respiratory distress Status: Acute acute hypoxic respiratory failure COVID+ pneumonia DM2, acute hyperglycemia acute weakness diarrhea Plan: Continue COVID protocol with decadron + remdesivir Continue Vitamin C and Zinc Supplemental O2 as needed, wean as tolerated Continue robutussin and codeine Continue Decadron for total 10 days Lovenox for DVT prophylaxis Continue empiric ABX Comment Review of Relevant I have reviewed the following items saravanan (where applicable) has been applied. Justifications for Admission Other Justification FELICIA SANTA III DO Mar 13, 2021 11:27
[2021-03-13] MEDS: ENOXAPARIN 40 MG/0.4 ML SYRINGE. SQ SCH (14:01)
[2021-03-13] MEDS: REMDESIVIR 100mg in NORMAL SALINE 250ML X 4 DAYS IV SCH (14:01)
[2021-03-13] MEDS: DOXYCYCLINE HYCLATE 100 MG TABLET PO SCH ×2 (14:02→22:29)
[2021-03-13 15:00] VITALS: BP 121/64
[2021-03-13 19:00] VITALS: BP 183/91
[2021-03-13] MEDS: DULoxetine HCL 30 MG CAPSULE.DR PO SCH (22:30)
[2021-03-13 23:00] VITALS: BP 179/86
[2021-03-14 03:00] VITALS: BP 163/76
[2021-03-14] MEDS: GABAPENTIN 400 MG CAPSULE. PO SCH ×3 (06:00→22:25)
[2021-03-14] MEDS: INSULIN LISPRO 300 UNITS/3 ML VIAL. SQ SCH ×6 (07:30→18:15)
[2021-03-14 07:55] VITALS: BP 187/90
--- NOTE | 2021-03-14 08:00 | NUR ---
Mealdose insulin held with breakfast due to poor appetite and fsbs of 87.
[2021-03-14] MEDS: INSULIN GLARGINE SYRINGE. SQ SCH ×2 (09:00→22:30)
[2021-03-14] MEDS: LACTOBACILLUS RHAMNOSUS GG 1 CAPSULE. PO SCH ×2 (09:16→22:25)
[2021-03-14] MEDS: CLOPIDOGREL BISULFATE 75 MG TABLET PO SCH (09:16)
[2021-03-14] MEDS: ZINC SULFATE 220 MG CAPSULE. PO SCH (09:16)
[2021-03-14] MEDS: ASCORBIC ACID 1,000 MG TABLET PO SCH (09:16)
[2021-03-14] MEDS: BENZONATATE 100 MG CAPSULE. PO SCH ×3 (09:16→22:24)
[2021-03-14] MEDS: ASPIRIN CHEWABLE 81 MG TABLET. PO SCH (09:16)
[2021-03-14] MEDS: DEXAMETHASONE SOD PHOS 4 MG/ML VIAL IVP SCH (09:17)
[2021-03-14] MEDS: CHLORHEXIDINE 0.12% 15 ML MOUTHWASH. SWSP SCH ×2 (09:17→22:25)
[2021-03-14] MEDS: LISINOPRIL 20 MG TABLET PO SCH (09:17)
[2021-03-14] MEDS: DOXYCYCLINE HYCLATE 100 MG TABLET PO SCH ×2 (09:17→22:25)
[2021-03-14 10:14] VITALS: BP 128/64
--- NOTE | 2021-03-14 11:29 | PDOC ---
[employer] PROGRESS NOTE Date of Service DOS: DATE: 03/14/21 TIME: 11:26 Chief Complaint Chief Complaint acute hypoxic respiratory failure COVID+ pneumonia DM2, acute hyperglycemia acute weakness diarrhea History of Present Illness History of Present Illness 03/14/2021 Pt seen and examined Discussed with RN Chart reviewed Pt resting in bed, requires 12L O2 today Continue COVID protocol Added Norsvac due to high BP overnight Decreased Lantus to 1x daily bc patient not eating well, withheld humalog this AM 03/13/2021 Pt seen and examined Discussed with RN Chart reviewed Pt resting in bed, requires 15L O2 today Continue COVID protocol 03/12/2021 Pt seen and examined Discussed with RN Chart reviewed Pt resting in bed, NAD 03/11/2021 Pt seen and examined Discussed with RN Chart reviewed Continue COVID protocol with decadron, remdesivir, Vit C and Zinc increase the lantus and SSI and meal add percocet and Robitsussin with codeine he looks worse, weak, can barely eat, poor po intake, on IV fluids, blood sugar high, may transtion to PPN if that improved, Vitals/I&O Vitals/I&O: Vital Signs Date Time Temp Pulse Resp B/P (MAP) Pulse Ox O2 Delivery O2 Flow Rate FiO2 03/14/21 10:14 98.1 74 18 128/64 (85) 92 Nasal Cannula 10.0 98.1 I & O 03/13/21 03/13/21 03/14/21 15:00 23:00 07:00 Intake Total 60 ml Output Total 500 ml Balance 60 ml -500 ml Physical Exam General: Alert, Cooperative, moderate distress Abdomen: Soft Extremities: No clubbing, No edema Skin: No rashes, No significant lesion Labs Labs: Laboratory Tests Test 03/13/21 17:28 03/13/21 21:03 03/14/21 08:16 Glucose (Fingerstick) 260 mg/dL (70-99) 224 mg/dL (70-99) 87 mg/dL (70-99) Assessment and Plan Assessmemt and Plan Problems Medical Problems: (1) COVID-19 Status: Acute (2) Pneumonia Status: Acute (3) Respiratory distress Status: Acute acute hypoxic respiratory failure COVID+ pneumonia DM2, acute hyperglycemia acute weakness diarrhea Plan: Continue COVID protocol with decadron + remdesivir Continue Vitamin C and Zinc Supplemental O2 as needed, wean as tolerated Continue robutussin and codeine Continue Decadron for total 10 days Lovenox for DVT prophylaxis Continue empiric ABX Continue Lisinopril 20mg PO daily for BP management Added Norsvac 10mg PO daily due to high BP overnight Continue Lantus and Humalog for hyperglycemia, Lantus decreased to 1x per day Comment Review of Relevant I have reviewed the following items saravanan (where applicable) has been applied. Justifications for Admission Other Justification FELICIA SANTA III DO Mar 14, 2021 11:29
[2021-03-14] MEDS: ENOXAPARIN 40 MG/0.4 ML SYRINGE. SQ SCH (14:37)
[2021-03-14 15:07] VITALS: BP 137/75
[2021-03-14 19:00] VITALS: BP 153/79
[2021-03-14] MEDS: DULoxetine HCL 30 MG CAPSULE.DR PO SCH (22:25)
[2021-03-14 23:00] VITALS: BP 147/74
[2021-03-15 03:00] VITALS: BP 150/74
[2021-03-15] MEDS: GABAPENTIN 400 MG CAPSULE. PO SCH ×3 (06:06→23:31)
[2021-03-15] MEDS: guaiFENesin/CODEINE 100mg/10mg 5 ML LIQUID PO PRN (06:16)
[2021-03-15 07:00] VITALS: BP 152/80
[2021-03-15 07:16] LABS: HEMATOCRIT 39.4 % (39.0-53.0); HEMOGLOBIN 13.3 g/dL (13.0-17.5); RED BLOOD COUNT 4.75 x10^6/uL (4.30-5.70); RED CELL DISTRIBUTION WIDTH 15.2 % (11.5-14.5)
[2021-03-15] MEDS: INSULIN LISPRO 300 UNITS/3 ML VIAL. SQ SCH ×6 (07:30→18:12)
[2021-03-15 07:45] LABS: CALCIUM 7.4 mg/dL (8.5-10.1); CREATININE 0.8 mg/dL (0.7-1.3); GFR 97.6; POTASSIUM 3.8 mmol/L (3.5-5.1)
[2021-03-15] MEDS: CHLORHEXIDINE 0.12% 15 ML MOUTHWASH. SWSP SCH ×2 (08:53→23:31)
[2021-03-15] MEDS: CLOPIDOGREL BISULFATE 75 MG TABLET PO SCH (08:54)
[2021-03-15] MEDS: LACTOBACILLUS RHAMNOSUS GG 1 CAPSULE. PO SCH ×2 (08:54→21:00)
[2021-03-15] MEDS: ASCORBIC ACID 1,000 MG TABLET PO SCH (08:54)
[2021-03-15] MEDS: ZINC SULFATE 220 MG CAPSULE. PO SCH (08:54)
[2021-03-15] MEDS: ASPIRIN CHEWABLE 81 MG TABLET. PO SCH (08:54)
[2021-03-15] MEDS: BENZONATATE 100 MG CAPSULE. PO SCH ×3 (08:54→23:31)
[2021-03-15] MEDS: LISINOPRIL 20 MG TABLET PO SCH (08:55)
[2021-03-15] MEDS: DEXAMETHASONE SOD PHOS 4 MG/ML VIAL IVP SCH (08:55)
[2021-03-15] MEDS: DOXYCYCLINE HYCLATE 100 MG TABLET PO SCH ×2 (08:55→23:31)
[2021-03-15 11:00] VITALS: BP 161/83
--- NOTE | 2021-03-15 11:30 | PDOC ---
[employer] PROGRESS NOTE Date of Service DOS: DATE: 03/15/21 TIME: 11:28 Chief Complaint Chief Complaint acute hypoxic respiratory failure COVID+ pneumonia DM2, acute hyperglycemia acute weakness diarrhea History of Present Illness History of Present Illness 03/15/2021 Patient seen and examined On the commode off his oxygen currently but is supposed to be on 10 L Discussed with RN Chart reviewed 03/14/2021 Pt seen and examined Discussed with RN Chart reviewed Pt resting in bed, requires 12L O2 today Continue COVID protocol Added Norsvac due to high BP overnight Decreased Lantus to 1x daily bc patient not eating well, withheld humalog this AM 03/13/2021 Pt seen and examined Discussed with RN Chart reviewed Pt resting in bed, requires 15L O2 today Continue COVID protocol 03/12/2021 Pt seen and examined Discussed with RN Chart reviewed Pt resting in bed, NAD 03/11/2021 Pt seen and examined Discussed with RN Chart reviewed Continue COVID protocol with decadron, remdesivir, Vit C and Zinc increase the lantus and SSI and meal add percocet and Robitsussin with codeine he looks worse, weak, can barely eat, poor po intake, on IV fluids, blood sugar high, may transtion to PPN if that improved, Vitals/I&O Vitals/I&O: Vital Signs Date Time Temp Pulse Resp B/P (MAP) Pulse Ox O2 Delivery O2 Flow Rate FiO2 03/15/21 08:55 81 152/80 03/15/21 07:00 98.0 20 90 Nasal Cannula 10.0 98.0 I & O 03/14/21 03/14/21 03/15/21 15:00 23:00 07:00 Intake Total 720 ml 600 ml 240 ml Output Total 600 ml 700 ml Balance 720 ml 0 ml -460 ml Physical Exam General: Alert, Cooperative, moderate distress Abdomen: Soft Extremities: No clubbing, No edema Skin: No rashes, No significant lesion Labs Labs: Laboratory Tests Test 03/14/21 12:19 03/14/21 17:28 03/14/21 19:48 03/15/21 06:30 Glucose (Fingerstick) 103 mg/dL (70-99) 322 mg/dL (70-99) 393 mg/dL (70-99) White Blood Count 12.0 x10^3/uL (4.0-11.0) Red Blood Count 4.75 x10^6/uL (4.30-5.70) Hemoglobin 13.3 g/dL (13.0-17.5) Hematocrit 39.4 % (39.0-53.0) Mean Corpuscular Volume 83 fL (79-100) Mean Corpuscular Hemoglobin 28 pg (25-35) Mean Corpuscular Hemoglobin Concent 34 g/dL (31-37) Red Cell Distribution Width 15.2 % (11.5-14.5) Platelet Count 414 x10^3/uL (140-400) Sodium Level 139 mmol/L (136-145) Potassium Level 3.8 mmol/L (3.5-5.1) Chloride Level 107 mmol/L (98-107) Carbon Dioxide Level 27 mmol/L (21-32) Anion Gap 5 (6-14) Blood Urea Nitrogen 24 mg/dL (8-26) Creatinine 0.8 mg/dL (0.7-1.3) Estimated GFR (Cockcroft-Gault) 97.6 Glucose Level 97 mg/dL (70-99) Calcium Level 7.4 mg/dL (8.5-10.1) Test 03/15/21 08:15 Glucose (Fingerstick) 83 mg/dL (70-99) Assessment and Plan Assessmemt and Plan Problems Medical Problems: (1) COVID-19 Status: Acute (2) Pneumonia Status: Acute (3) Respiratory distress Status: Acute acute hypoxic respiratory failure COVID+ pneumonia DM2, acute hyperglycemia acute weakness diarrhea Plan: Continue COVID protocol with decadron + remdesivir Continue Vitamin C and Zinc Supplemental O2 as needed, wean as tolerated Continue robutussin and codeine Continue Decadron for total 10 days Lovenox for DVT prophylaxis Continue empiric ABX Continue Lisinopril 20mg PO daily for BP management Yesterday we added Norsvac 10mg PO daily due to high BP overnight Continue Lantus and Humalog for hyperglycemia, Lantus decreased to 1x per day Home meds Full code Long-term prognosis guarded Comment Review of Relevant I have reviewed the following items saravanan (where applicable) has been applied. Medications: Current Medications Medications (Trade) Dose Ordered Sig/Keny Route PRN Reason Start Time Stop Time Status Last Admin Dose Admin Amlodipine Besylate (Norvasc) 10 mg DAILY PO 03/14/21 12:00 03/15/21 08:54 Insulin Glargine (Lantus Syringe) 30 unit HS SQ 03/14/21 21:00 03/14/21 22:30 Justifications for Admission Other Justification FELICIA SANTA III DO Mar 15, 2021 11:30
--- NOTE | 2021-03-15 11:53 | PDOC ---
PULMONARY PROGRESS NOTES DATE: 03/15/21 TIME: 11:52 Subjective Patient remains on 10 L nasal cannula. Denies any shortness of breath Vitals Vital Signs Date Time Temp Pulse Resp B/P (MAP) Pulse Ox O2 Delivery O2 Flow Rate FiO2 03/15/21 11:00 98.1 79 18 161/83 (109) 94 Nasal Cannula 10.0 98.1 Comments Patient seen during the viral pandemic, visual inspection not utilizing accessory muscles no paroxysmal breathing pattern no rashes Labs Laboratory Tests Test 03/13/21 17:28 03/13/21 21:03 03/14/21 08:16 03/14/21 12:19 Glucose (Fingerstick) 260 mg/dL (70-99) 224 mg/dL (70-99) 87 mg/dL (70-99) 103 mg/dL (70-99) Test 03/14/21 17:28 03/14/21 19:48 03/15/21 06:30 03/15/21 08:15 Glucose (Fingerstick) 322 mg/dL (70-99) 393 mg/dL (70-99) 83 mg/dL (70-99) White Blood Count 12.0 x10^3/uL (4.0-11.0) Red Blood Count 4.75 x10^6/uL (4.30-5.70) Hemoglobin 13.3 g/dL (13.0-17.5) Hematocrit 39.4 % (39.0-53.0) Mean Corpuscular Volume 83 fL (79-100) Mean Corpuscular Hemoglobin 28 pg (25-35) Mean Corpuscular Hemoglobin Concent 34 g/dL (31-37) Red Cell Distribution Width 15.2 % (11.5-14.5) Platelet Count 414 x10^3/uL (140-400) Sodium Level 139 mmol/L (136-145) Potassium Level 3.8 mmol/L (3.5-5.1) Chloride Level 107 mmol/L (98-107) Carbon Dioxide Level 27 mmol/L (21-32) Anion Gap 5 (6-14) Blood Urea Nitrogen 24 mg/dL (8-26) Creatinine 0.8 mg/dL (0.7-1.3) Estimated GFR (Cockcroft-Gault) 97.6 Glucose Level 97 mg/dL (70-99) Calcium Level 7.4 mg/dL (8.5-10.1) Laboratory Tests Test 03/14/21 12:19 03/14/21 17:28 03/14/21 19:48 03/15/21 06:30 Glucose (Fingerstick) 103 mg/dL (70-99) 322 mg/dL (70-99) 393 mg/dL (70-99) White Blood Count 12.0 x10^3/uL (4.0-11.0) Red Blood Count 4.75 x10^6/uL (4.30-5.70) Hemoglobin 13.3 g/dL (13.0-17.5) Hematocrit 39.4 % (39.0-53.0) Mean Corpuscular Volume 83 fL (79-100) Mean Corpuscular Hemoglobin 28 pg (25-35) Mean Corpuscular Hemoglobin Concent 34 g/dL (31-37) Red Cell Distribution Width 15.2 % (11.5-14.5) Platelet Count 414 x10^3/uL (140-400) Sodium Level 139 mmol/L (136-145) Potassium Level 3.8 mmol/L (3.5-5.1) Chloride Level 107 mmol/L (98-107) Carbon Dioxide Level 27 mmol/L (21-32) Anion Gap 5 (6-14) Blood Urea Nitrogen 24 mg/dL (8-26) Creatinine 0.8 mg/dL (0.7-1.3) Estimated GFR (Cockcroft-Gault) 97.6 Glucose Level 97 mg/dL (70-99) Calcium Level 7.4 mg/dL (8.5-10.1) Test 03/15/21 08:15 Glucose (Fingerstick) 83 mg/dL (70-99) Medications Active Scripts Medications Dose Route/Sig Max Daily Dose Days Date Category Dose Instructions Azithromycin Tablet (Azithromycin) 250 Mg Tablet 1 Pkg PO UD 5 03/06/21 Rx 2 the first day followed by 1 for days 2-5 Hydrocodone-Apap 5-325 (Hydrocodone Bit/Acetaminophen) 1 Tab Tablet 1 Tab PO PRN Q6HRS PRN 3 08/03/20 Rx Keflex (Cephalexin) 500 Mg Capsule 1 Cap PO TID 10 09/04/19 Rx [place] 5-325 Tablet (Acetaminophen/Hydrocodone Bitart) 1 Each Tablet 1 Tab PO PRN Q6HRS PRN 06/13/19 Rx Keflex (Cephalexin) 500 Mg Capsule 1 Cap PO TID 7 02/09/19 Rx Peridex (Chlorhexidine Gluconate) 15 Ml Mouthwash 15 Ml SWSP BID 7 02/09/19 Rx [place] teeth before using to prevent staining. Swish for approximately 30 seconds before spitting. Naproxen 500 Mg Tablet 1 Tab PO BID PRN 10 02/09/19 Rx Clopidogrel (Clopidogrel Bisulfate) 75 Mg Tablet 75 Mg PO DAILYWBKFT 30 08/30/18 Rx Viagra (Sildenafil Citrate) 100 Mg Tablet 1 Tab PO PRN DAILY 08/30/18 Reported Nystatin 15 Gm Powder 1 [place] TP BID 08/30/18 Reported Mupirocin Ointment (Mupirocin) 22 Gm Oint...g. 1 [place] TP DAILY 08/30/18 Reported Lisinopril 20 Mg Tablet 1 Tab PO DAILY 08/30/18 Reported Gabapentin 800 Mg Tablet 800 Mg PO Q8HRS 08/30/18 Reported Atorvastatin Calcium 80 Mg Tablet 1 Tab PO DAILY 08/30/18 Reported Janumet 50-1,000 Mg Tablet (Sitagliptin Phos/Metformin Hcl) 1 Each Tablet 1 Tab PO BID 11/05/17 Reported Pentoxifylline 400 Mg Tablet.er 400 Mg PO TID 11/05/17 Reported Cymbalta (Duloxetine Hcl) 30 Mg Capsule.dr 30 Mg PO QHS 11/05/17 Reported Glipizide 10 Mg Tablet 1 Tab PO BID 11/05/17 Reported Aspirin 81 Mg Tab.chew 1 Tab PO DAILY 01/02/15 Reported Impression . IMPRESSION: 1. Acute hypoxic respiratory failure secondary to COVID-19 viral pne umonia.//Acute exacerbation of COPD. 2. COVID-19 viral pneumonia, acute respiratory distress syndrome. 3. Coronary artery disease, status post coronary artery bypass grafting. 4. Diabetes. Plan . Continue oxygen supplementation FiO2 to keep saturations 92% and above. Status post 5 days of remdesivir Dexamethasone for total of 10 days. Empiric antibiotics DVT prophylaxis Monitor blood sugars Clinically stable. Continue present supportive care. KEERTHI WITT MD Mar 15, 2021 11:53
[2021-03-15] MEDS: ENOXAPARIN 40 MG/0.4 ML SYRINGE. SQ SCH (12:56)
[2021-03-15 15:00] VITALS: BP 149/80
[2021-03-15 19:00] VITALS: BP 148/71
[2021-03-15 23:00] VITALS: BP 144/74
[2021-03-15] MEDS: DULoxetine HCL 30 MG CAPSULE.DR PO SCH (23:31)
[2021-03-15] MEDS: INSULIN GLARGINE SYRINGE. SQ SCH (23:32)
[2021-03-16 03:00] VITALS: BP 155/83
[2021-03-16] MEDS: GABAPENTIN 400 MG CAPSULE. PO SCH ×3 (06:16→22:01)
--- NOTE | 2021-03-16 06:57 | PDOC ---
PULMONARY PROGRESS NOTES DATE: 03/16/21 TIME: 06:56 Subjective Patient remains on 10 L nasal cannula. feels better Vitals Vital Signs Date Time Temp Pulse Resp B/P (MAP) Pulse Ox O2 Delivery O2 Flow Rate FiO2 03/16/21 03:00 98.1 82 18 155/83 (107) 93 98.1 03/15/21 20:00 Nasal Cannula 10.0 Comments Patient seen during the COVID-19 viral pandemic, visual inspection no distress rrr not utilizing accessory muscles no paroxysmal breathing pattern no rashes Labs Laboratory Tests Test 03/14/21 08:16 03/14/21 12:19 03/14/21 17:28 03/14/21 19:48 Glucose (Fingerstick) 87 mg/dL (70-99) 103 mg/dL (70-99) 322 mg/dL (70-99) 393 mg/dL (70-99) Test 03/15/21 06:30 03/15/21 08:15 03/15/21 12:07 03/15/21 17:06 White Blood Count 12.0 x10^3/uL (4.0-11.0) Red Blood Count 4.75 x10^6/uL (4.30-5.70) Hemoglobin 13.3 g/dL (13.0-17.5) Hematocrit 39.4 % (39.0-53.0) Mean Corpuscular Volume 83 fL (79-100) Mean Corpuscular Hemoglobin 28 pg (25-35) Mean Corpuscular Hemoglobin Concent 34 g/dL (31-37) Red Cell Distribution Width 15.2 % (11.5-14.5) Platelet Count 414 x10^3/uL (140-400) Sodium Level 139 mmol/L (136-145) Potassium Level 3.8 mmol/L (3.5-5.1) Chloride Level 107 mmol/L (98-107) Carbon Dioxide Level 27 mmol/L (21-32) Anion Gap 5 (6-14) Blood Urea Nitrogen 24 mg/dL (8-26) Creatinine 0.8 mg/dL (0.7-1.3) Estimated GFR (Cockcroft-Gault) 97.6 Glucose Level 97 mg/dL (70-99) Calcium Level 7.4 mg/dL (8.5-10.1) Glucose (Fingerstick) 83 mg/dL (70-99) 218 mg/dL (70-99) 265 mg/dL (70-99) Test 03/15/21 21:34 Glucose (Fingerstick) 289 mg/dL (70-99) Laboratory Tests Test 03/15/21 08:15 03/15/21 12:07 03/15/21 17:06 03/15/21 21:34 Glucose (Fingerstick) 83 mg/dL (70-99) 218 mg/dL (70-99) 265 mg/dL (70-99) 289 mg/dL (70-99) Medications Active Scripts Medications Dose Route/Sig Max Daily Dose Days Date Category Dose Instructions Azithromycin Tablet (Azithromycin) 250 Mg Tablet 1 Pkg PO UD 5 03/06/21 Rx 2 the first day followed by 1 for days 2-5 Hydrocodone-Apap 5-325 (Hydrocodone Bit/Acetaminophen) 1 Tab Tablet 1 Tab PO PRN Q6HRS PRN 3 08/03/20 Rx Keflex (Cephalexin) 500 Mg Capsule 1 Cap PO TID 10 09/04/19 Rx [place] 5-325 Tablet (Acetaminophen/Hydrocodone Bitart) 1 Each Tablet 1 Tab PO PRN Q6HRS PRN 06/13/19 Rx Keflex (Cephalexin) 500 Mg Capsule 1 Cap PO TID 7 02/09/19 Rx Peridex (Chlorhexidine Gluconate) 15 Ml Mouthwash 15 Ml SWSP BID 7 02/09/19 Rx [place] teeth before using to prevent staining. Swish for approximately 30 seconds before spitting. Naproxen 500 Mg Tablet 1 Tab PO BID PRN 10 02/09/19 Rx Clopidogrel (Clopidogrel Bisulfate) 75 Mg Tablet 75 Mg PO DAILYWBKFT 30 08/30/18 Rx Viagra (Sildenafil Citrate) 100 Mg Tablet 1 Tab PO PRN DAILY 08/30/18 Reported Nystatin 15 Gm Powder 1 Wal[place] TP BID 08/30/18 Reported Mupirocin Ointment (Mupirocin) 22 Gm Oint...g. 1 [place] TP DAILY 08/30/18 Reported Lisinopril 20 Mg Tablet 1 Tab PO DAILY 08/30/18 Reported Gabapentin 800 Mg Tablet 800 Mg PO Q8HRS 08/30/18 Reported Atorvastatin Calcium 80 Mg Tablet 1 Tab PO DAILY 08/30/18 Reported Janumet 50-1,000 Mg Tablet (Sitagliptin Phos/Metformin Hcl) 1 Each Tablet 1 Tab PO BID 11/05/17 Reported Pentoxifylline 400 Mg Tablet.er 400 Mg PO TID 11/05/17 Reported Cymbalta (Duloxetine Hcl) 30 Mg Capsule.dr 30 Mg PO QHS 11/05/17 Reported Glipizide 10 Mg Tablet 1 Tab PO BID 11/05/17 Reported Aspirin 81 Mg Tab.chew 1 Tab PO DAILY 01/02/15 Reported Impression . IMPRESSION: 1. Acute hypoxic respiratory failure secondary to COVID-19 viral pneumonia.//Acute exacerbation of COPD. 2. COVID-19 viral pneumonia, acute respiratory distress syndrome. 3. Coronary artery disease, status post coronary artery bypass grafting. 4. Diabetes. Plan . Continue oxygen supplementation titrate FiO2 to keep saturations 90% Status post 5 days of remdesivir Dexamethasone for total of 10 days. Empiric antibiotics total of 7 d DVT prophylaxis Monitor blood sugars Clinically stable. Continue present supportive care. discussed w FILIPPO Rivera MD Mar 16, 2021 06:57
[2021-03-16 07:00] VITALS: BP 141/82
[2021-03-16] MEDS: INSULIN LISPRO 300 UNITS/3 ML VIAL. SQ SCH ×7 (07:30→17:48)
[2021-03-16] MEDS: BENZONATATE 100 MG CAPSULE. PO SCH ×3 (09:59→21:00)
[2021-03-16] MEDS: ASCORBIC ACID 1,000 MG TABLET PO SCH (10:00)
[2021-03-16] MEDS: DOXYCYCLINE HYCLATE 100 MG TABLET PO SCH ×2 (10:00→22:01)
[2021-03-16] MEDS: ZINC SULFATE 220 MG CAPSULE. PO SCH (10:00)
[2021-03-16] MEDS: ASPIRIN CHEWABLE 81 MG TABLET. PO SCH (10:00)
[2021-03-16] MEDS: LACTOBACILLUS RHAMNOSUS GG 1 CAPSULE. PO SCH ×2 (10:00→22:01)
[2021-03-16] MEDS: ENOXAPARIN 40 MG/0.4 ML SYRINGE. SQ SCH (10:01)
[2021-03-16] MEDS: LISINOPRIL 20 MG TABLET PO SCH (10:01)
[2021-03-16] MEDS: CLOPIDOGREL BISULFATE 75 MG TABLET PO SCH (10:01)
[2021-03-16] MEDS: CHLORHEXIDINE 0.12% 15 ML MOUTHWASH. SWSP SCH ×2 (10:02→22:01)
[2021-03-16] MEDS: DEXAMETHASONE SOD PHOS 4 MG/ML VIAL IVP SCH (10:02)
[2021-03-16 11:00] VITALS: BP 150/88
[2021-03-16 15:00] VITALS: BP 156/72
--- NOTE | 2021-03-16 15:43 | PDOC ---
GENERAL General: Patient examined chart reviewed today is hospital day 9 for this patient with a cute hypoxic respiratory failure secondary to Covid pneumonia. He is slowly clinically improving though still requiring quite a bit of oxygen. He has no complaints for me today. Tells me he is eating okay and up and moving about the room. Looking forward to getting home as soon as possible. Sugars are running higher will increase glargine to 40 units at bedtime. Time spent today is 30 minutes with greater than 50% in counseling and coordination of care most of which in discussion with patient regarding care plan and progress. Problems: (1) Acute respiratory failure with hypoxia (2) Type 2 diabetes mellitus (3) COVID-19 (4) Coronary artery disease VITAL SIGNS Vital Signs/I&O: Vital Signs Date Time Temp Pulse Resp B/P (MAP) Pulse Ox O2 Delivery O2 Flow Rate FiO2 03/16/21 15:00 98.0 79 20 156/72 (100) 96 Nasal Cannula 10.0 98.0 I & O 03/15/21 03/15/21 03/16/21 15:00 23:00 07:00 Intake Total 240 ml Output Total 550 ml Balance -310 ml In general patient is pleasant alert and oriented x3 no acute distress. HEENT exam is notable for that he is sitting there not wearing his oxygen says he wants to try to let his body heal on its own. He is supposed to be taking 7 L on nasal cannula he was agreeable to having me put that back on him Neck is soft and supple no adenopathy or thyromegaly noted Chest bilateral equal air entry though diminished throughout patient is dyspneic Heart S1-S2 normal regular rate and rhythm no murmurs or gallops are noted Abdomen soft nontender nondistended no masses organomegaly noted Extremity exam is unremarkable for acute abnormality ALLERGIES Allergies: Allergies Coded Allergies Type Severity Reaction Last Updated Verified No Known Drug Allergies 11/30/17 No MEDS Medications: Current Medications Medications (Trade) Dose Ordered Sig/Keny Start Time Stop Time Status Last Admin Dose Admin Acetaminophen/ Hydrocodone Bitart (Lortab 5/325) 1 tab PRN Q6HRS PRN 03/09/21 10:00 Amlodipine Besylate (Norvasc) 10 mg DAILY 03/14/21 12:00 03/16/21 10:00 Ascorbic Acid (Vitamin C) 1,000 mg DAILY 03/09/21 10:30 1/8/22 10:00 Aspirin (Aspirin Chewable) 81 mg DAILY 03/09/21 10:30 03/16/21 10:00 Benzonatate (Tessalon Perle) 100 mg [id number] 03/09/21 21:00 03/16/21 09:59 Calcium Carbonate/ Glycine (Tums) 500 mg PRN AFTMEALHC PRN 03/09/21 19:15 Ceftriaxone Sodium (Rocephin) 1 gm Q24H 03/09/21 21:00 03/10/21 12:02 DC 03/09/21 21:34 Chlorhexidine Gluconate (Peridex) 15 ml BID 03/09/21 10:30 03/16/21 10:02 Clopidogrel Bisulfate (Plavix) 75 mg DAILYWBKFT 03/09/21 10:30 03/16/21 10:01 Dexamethasone Sodium Phosphate (Decadron) 6 mg DAILY 03/09/21 10:30 03/18/21 21:00 03/16/21 10:02 Dextrose (Dextrose 50%-Water Syringe) 12.5 gm PRN Q15MIN PRN 03/09/21 10:00 Doxycycline Hyclate (Vibra-Tab) 100 mg BID 03/09/21 10:30 03/16/21 10:00 Doxycycline Hyclate 100 mg/ Dextrose 100 ml @ 50 mls/hr 1X ONCE 03/08/21 21:30 03/08/21 23:29 DC 03/08/21 22:16 Duloxetine HCl (Cymbalta) 30 mg QHS 03/09/21 21:00 03/15/21 23:31 Enoxaparin Sodium (Lovenox 40mg Syringe) 40 mg Q24H 03/09/21 11:00 03/16/21 10:01 Enoxaparin Sodium (Lovenox Per Pharmacy Prophylaxis Dosing) 1 each PRN DAILY PRN 03/09/21 10:00 Gabapentin (Neurontin) 800 mg Q8HRS 03/09/21 14:00 03/16/21 06:16 Guaifenesin/ Codeine Phosphate (Robitussin Ac) 5 ml PRN Q6HRS PRN 03/10/21 14:00 03/15/21 06:16 Info (CONTRAST GIVEN -- Rx MONITORING) 1 each PRN DAILY PRN 03/08/21 20:00 03/10/21 19:59 DC Insulin Glargine (Lantus Syringe) 30 unit HS 03/14/21 21:00 03/15/21 23:32 Insulin Human Lispro (HumaLOG) 20 units TIDAC 03/10/21 16:30 03/15/21 18:11 Iohexol (Omnipaque 350 Mg/ml) 80 ml 1X ONCE 03/08/21 20:00 03/08/21 20:01 DC 03/08/21 20:26 Lactobacillus Rhamnosus (Culturelle) 1 cap BID 03/09/21 11:00 03/16/21 10:00 Lisinopril (Prinivil) 20 mg DAILY 03/09/21 10:30 03/16/21 10:01 Loperamide HCl (Imodium) 4 mg 1X ONCE 03/09/21 10:30 03/09/21 10:31 DC 03/09/21 11:22 Metronidazole (Flagyl) 500 mg Q8HRS 03/09/21 14:00 03/13/21 14:36 DC 03/13/21 14:02 Non-Formulary Medication (Glipizide ) 1 tab BID 03/09/21 21:00 03/09/21 10:00 DC Non-Formulary Medication (Sitagliptin Phos/Metformin Hcl (Janumet 50-1,000 Mg Tablet)) 1 tab BID 03/09/21 21:00 03/09/21 10:00 DC Oxycodone/ Acetaminophen (Percocet 5/325) 1 tab PRN Q4HRS PRN 03/10/21 14:00 03/13/21 09:55 Remdesivir 100 mg/ Sodium Chloride 230 ml @ 460 mls/hr Q24H 03/10/21 11:00 03/13/21 11:29 DC 03/13/21 14:01 Remdesivir 200 mg/ Sodium Chloride 210 ml @ 210 mls/hr 1X ONCE 03/09/21 11:00 03/09/21 11:59 DC 03/09/21 10:59 Sodium Chloride 1,000 ml @ 100 mls/hr 1X ONCE 03/09/21 10:00 03/09/21 19:59 DC 03/09/21 10:59 Zinc Sulfate (Orazinc) 220 mg DAILY 03/09/21 10:30 03/16/21 10:00 LAB Lab: Laboratory Tests Test 03/15/21 17:06 03/15/21 21:34 03/16/21 08:07 03/16/21 11:29 Glucose (Fingerstick) 265 mg/dL (70-99) H 289 mg/dL (70-99) H 185 mg/dL (70-99) H 226 mg/dL (70-99) H ASSESSMENT & PLAN A&P Plan as noted above This note was created using cookdinner and may have omissions and/or errors due to the nature of real-time voice stockroom clerk. Justifications for Admission Other Justification CHANTAL RUBIO MD Mar 16, 2021 15:43
[2021-03-16 19:00] VITALS: BP 141/71
[2021-03-16] MEDS: DULoxetine HCL 30 MG CAPSULE.DR PO SCH (22:01)
[2021-03-16] MEDS: INSULIN GLARGINE SYRINGE. SQ SCH (22:04)
[2021-03-16 23:00] VITALS: BP 133/65
[2021-03-17 03:00] VITALS: BP 146/82
[2021-03-17] MEDS: GABAPENTIN 400 MG CAPSULE. PO SCH ×3 (06:10→21:26)
[2021-03-17 07:00] VITALS: BP 147/76
--- NOTE | 2021-03-17 07:07 | PDOC ---
PULMONARY PROGRESS NOTES DATE: 03/17/21 TIME: 07:06 Subjective on 10 L nasal cannula. fio2 titrated down to 6 lpm but the patient increased it to 10 feels better Vitals Vital Signs Date Time Temp Pulse Resp B/P (MAP) Pulse Ox O2 Delivery O2 Flow Rate FiO2 03/17/21 03:00 97.8 80 18 146/82 (103) 95 97.8 03/16/21 20:00 Nasal Cannula 10.0 Comments Patient seen during the COVID-19 viral pandemic, visual inspection no distress rrr not utilizing accessory muscles no paroxysmal breathing pattern no rashes Labs Laboratory Tests Test 03/15/21 08:15 03/15/21 12:07 03/15/21 17:06 03/15/21 21:34 Glucose (Fingerstick) 83 mg/dL (70-99) 218 mg/dL (70-99) 265 mg/dL (70-99) 289 mg/dL (70-99) Test 03/16/21 08:07 03/16/21 11:29 03/16/21 16:39 03/16/21 21:25 Glucose (Fingerstick) 185 mg/dL (70-99) 226 mg/dL (70-99) 362 mg/dL (70-99) 256 mg/dL (70-99) Laboratory Tests Test 03/16/21 08:07 03/16/21 11:29 03/16/21 16:39 03/16/21 21:25 Glucose (Fingerstick) 185 mg/dL (70-99) 226 mg/dL (70-99) 362 mg/dL (70-99) 256 mg/dL (70-99) Medications Active Scripts Medications Dose Route/Sig Max Daily Dose Days Date Category Dose Instructions Azithromycin Tablet (Azithromycin) 250 Mg Tablet 1 Pkg PO UD 5 03/06/21 Rx 2 the first day followed by 1 for days 2-5 Hydrocodone-Apap 5-325 (Hydrocodone Bit/Acetaminophen) 1 Tab Tablet 1 Tab PO PRN Q6HRS PRN 3 08/03/20 Rx Keflex (Cephalexin) 500 Mg Capsule 1 Cap PO TID 10 09/04/19 Rx [place] 5-325 Tablet (Acetaminophen/Hydrocodone Bitart) 1 Each Tablet 1 Tab PO PRN Q6HRS PRN 06/13/19 Rx Keflex (Cephalexin) 500 Mg Capsule 1 Cap PO TID 7 02/09/19 Rx Peridex (Chlorhexidine Gluconate) 15 Ml Mouthwash 15 Ml SWSP BID 7 02/09/19 Rx [place] teeth before using to prevent staining. Swish for approximately 30 seconds before spitting. Naproxen 500 Mg Tablet 1 Tab PO BID PRN 10 02/09/19 Rx Clopidogrel (Clopidogrel Bisulfate) 75 Mg Tablet 75 Mg PO DAILYWBKFT 30 08/30/18 Rx Viagra (Sildenafil Citrate) 100 Mg Tablet 1 Tab PO PRN DAILY 08/30/18 Reported Nystatin 15 Gm Powder 1 [place] TP BID 08/30/18 Reported Mupirocin Ointment (Mupirocin) 22 Gm Oint...g. 1 [place] TP DAILY 08/30/18 Reported Lisinopril 20 Mg Tablet 1 Tab PO DAILY 08/30/18 Reported Gabapentin 800 Mg Tablet 800 Mg PO Q8HRS 08/30/18 Reported Atorvastatin Calcium 80 Mg Tablet 1 Tab PO DAILY 08/30/18 Reported Janumet 50-1,000 Mg Tablet (Sitagliptin Phos/Metformin Hcl) 1 Each Tablet 1 Tab PO BID 11/05/17 Reported Pentoxifylline 400 Mg Tablet.er 400 Mg PO TID 11/05/17 Reported Cymbalta (Duloxetine Hcl) 30 Mg Capsule.dr 30 Mg PO QHS 11/05/17 Reported Glipizide 10 Mg Tablet 1 Tab PO BID 11/05/17 Reported Aspirin 81 Mg Tab.chew 1 Tab PO DAILY 01/02/15 Reported Impression . IMPRESSION: 1. Acute hypoxic respiratory failure secondary to COVID-19 viral pneumonia.//Acute exacerbation of COPD. 2. COVID-19 viral pneumonia, acute respiratory distress syndrome. 3. Coronary artery disease, status post coronary artery bypass grafting. 4. Diabetes. Plan . titrate FiO2 to keep saturations 90% Status post 5 days of remdesivir Dexamethasone for total of 10 days. Empiric antibiotics total of 7 d DVT prophylaxis Monitor blood sugars Clinically stable. Continue present supportive care. discussed w FILIPPO Rivera MD Mar 17, 2021 07:07
--- NOTE | 2021-03-17 07:25 | NUR ---
Went into pts room to titrate O2 down from 10L and pt had NC off and on floor. Pts O2 was reading 90% on RA. Pt then stated "I need, I need" and put the NC back on. Titrated O2 to 6L NC.
[2021-03-17] MEDS: INSULIN LISPRO 300 UNITS/3 ML VIAL. SQ SCH ×6 (07:30→19:09)
[2021-03-17 08:09] LABS: ALBUMIN 1.9 g/dL (3.4-5.0); ALBUMIN/GLOBULIN RATIO 0.5 (1.0-1.7); CALCIUM 7.6 mg/dL (8.5-10.1); CREATININE 0.9 mg/dL (0.7-1.3); GFR 85.2; POTASSIUM 4.5 mmol/L (3.5-5.1); TOTAL BILIRUBIN 0.5 mg/dL (0.2-1.0); TOTAL PROTEIN 5.6 g/dL (6.4-8.2)
[2021-03-17 08:23] LABS: BASO % 0 % (0-3); EOS % 0 % (0-3); HEMATOCRIT 41.3 % (39.0-53.0); HEMOGLOBIN 13.3 g/dL (13.0-17.5); LYMPH # 1.1 x10^3/uL (1.0-4.8); LYMPH % 10 % (24-48); MEAN CORPUSCULAR HEMOGLOBIN 27 pg (25-35); MEAN CORPUSCULAR HGB CONC 32 g/dL (31-37); MEAN CORPUSCULAR VOLUME 84 fL (79-100); MONO % 9 % (0-9); NEUT # 9.6 x10^3/uL (1.8-7.7); NEUT % 82 % (31-73); PLATELET COUNT 498 x10^3/uL (140-400); RED BLOOD COUNT 4.92 x10^6/uL (4.30-5.70); RED CELL DISTRIBUTION WIDTH 15.2 % (11.5-14.5); WHITE BLOOD COUNT 11.7 x10^3/uL (4.0-11.0)
[2021-03-17] MEDS: CHLORHEXIDINE 0.12% 15 ML MOUTHWASH. SWSP SCH ×2 (08:42→21:26)
[2021-03-17] MEDS: CLOPIDOGREL BISULFATE 75 MG TABLET PO SCH (10:30)
[2021-03-17] MEDS: DEXAMETHASONE SOD PHOS 4 MG/ML VIAL IVP SCH (10:30)
[2021-03-17] MEDS: ZINC SULFATE 220 MG CAPSULE. PO SCH (10:32)
[2021-03-17] MEDS: ASPIRIN CHEWABLE 81 MG TABLET. PO SCH (10:32)
[2021-03-17] MEDS: LACTOBACILLUS RHAMNOSUS GG 1 CAPSULE. PO SCH ×2 (10:32→21:26)
[2021-03-17] MEDS: ASCORBIC ACID 1,000 MG TABLET PO SCH (10:33)
[2021-03-17] MEDS: LISINOPRIL 20 MG TABLET PO SCH (10:33)
[2021-03-17] MEDS: BENZONATATE 100 MG CAPSULE. PO SCH ×3 (10:33→21:26)
[2021-03-17] MEDS: DOXYCYCLINE HYCLATE 100 MG TABLET PO SCH ×2 (10:33→21:26)
[2021-03-17] MEDS: guaiFENesin/CODEINE 100mg/10mg 5 ML LIQUID PO PRN (10:34)
[2021-03-17] MEDS: ENOXAPARIN 40 MG/0.4 ML SYRINGE. SQ SCH (10:34)
[2021-03-17 11:00] VITALS: BP 129/69
[2021-03-17] MEDS ORDERED: AMLO-187 PO (13:23)
--- NOTE | 2021-03-17 13:28 | PDOC ---
GENERAL General: Discharge summary [id number] VITAL SIGNS Vital Signs/I&O: Vital Signs Date Time Temp Pulse Resp B/P (MAP) Pulse Ox O2 Delivery O2 Flow Rate FiO2 03/17/21 10:39 74 147/76 03/17/21 07:00 98.2 18 91 Nasal Cannula 10.0 98.2 I & O 03/16/21 03/16/21 03/17/21 15:00 23:00 07:00 Intake Total 400 ml 240 ml Output Total 400 ml Balance 400 ml -400 ml 240 ml ALLERGIES Allergies: Allergies Coded Allergies Type Severity Reaction Last Updated Verified No Known Drug Allergies 11/30/17 No MEDS Medications: Current Medications Medications (Trade) Dose Ordered Sig/Keny Route PRN Reason Start Time Stop Time Status Last Admin Dose Admin Insulin Glargine (Lantus Syringe) 40 unit HS SQ 03/16/21 21:00 03/16/21 22:04 LAB Lab: Laboratory Tests Test 03/16/21 16:39 03/16/21 21:25 03/17/21 06:50 Glucose (Fingerstick) 362 mg/dL (70-99) H 256 mg/dL (70-99) H White Blood Count 11.7 x10^3/uL (4.0-11.0) H Red Blood Count 4.92 x10^6/uL (4.30-5.70) Hemoglobin 13.3 g/dL (13.0-17.5) Hematocrit 41.3 % (39.0-53.0) Mean Corpuscular Volume 84 fL (79-100) Mean Corpuscular Hemoglobin 27 pg (25-35) Mean Corpuscular Hemoglobin Concent 32 g/dL (31-37) Red Cell Distribution Width 15.2 % (11.5-14.5) H Platelet Count 498 x10^3/uL (140-400) H Neutrophils (%) (Auto) 82 % (31-73) H Lymphocytes (%) (Auto) 10 % (24-48) L Monocytes (%) (Auto) 9 % (0-9) Eosinophils (%) (Auto) 0 % (0-3) Basophils (%) (Auto) 0 % (0-3) Neutrophils # (Auto) 9.6 x10^3/uL (1.8-7.7) H Lymphocytes # (Auto) 1.1 x10^3/uL (1.0-4.8) Monocytes # (Auto) 1.0 x10^3/uL (0.0-1.1) Eosinophils # (Auto) 0.0 x10^3/uL (0.0-0.7) Basophils # (Auto) 0.0 x10^3/uL (0.0-0.2) Sodium Level 141 mmol/L (136-145) Potassium Level 4.5 mmol/L (3.5-5.1) Chloride Level 107 mmol/L (98-107) Carbon Dioxide Level 26 mmol/L (21-32) Anion Gap 8 (6-14) Blood Urea Nitrogen 31 mg/dL (8-26) H Creatinine 0.9 mg/dL (0.7-1.3) Estimated GFR (Cockcroft-Gault) 85.2 BUN/Creatinine Ratio 34 (6-20) H Glucose Level 111 mg/dL (70-99) H Calcium Level 7.6 mg/dL (8.5-10.1) L Total Bilirubin 0.5 mg/dL (0.2-1.0) Aspartate Amino Transferase (AST) 17 U/L (15-37) Alanine Aminotransferase (ALT) 22 U/L (16-63) Alkaline Phosphatase 131 U/L (46-116) H Total Protein 5.6 g/dL (6.4-8.2) L Albumin 1.9 g/dL (3.4-5.0) L Albumin/Globulin Ratio 0.5 (1.0-1.7) L Laboratory Tests 03/17/21 06:50 Laboratory Tests 03/17/21 06:50 Justifications for Admission Other Justification CHANTAL RUBIO MD Mar 17, 2021 13:28
--- NOTE | 2021-03-17 14:29 | DS ---
DATE OF DISCHARGE: 03/17/2021 HOSPITAL COURSE: This patient is a 65-year-old man who is on hospital day 10, admitted with acute hypoxic respiratory failure secondary to COVID pneumonia. He completed 5 days of remdesivir and 10 days of steroids. He was also covered with empiric antibiotics. He required over 5 liters of oxygen continuously throughout his stay, but today is down to 2 liters of oxygen and is greatly desirous of discharge home. We are asking for a 6-minute walk test and getting him ready for discharge. He had his oral anti-glycemics held in the hospital and given the steroid use, his sugars were quite high. He would rather discharge home back on the oral anti-glycemics and follow up with his primary care team. We will attempt to do that. PHYSICAL EXAMINATION: VITAL SIGNS: Notable for that the patient has been afebrile. Blood pressure has been in the 130s-140s/80s, heart rate is in 80s-90s. He is breathing comfortably and saturating 95% between 2-4 liters today. GENERAL: He is a pleasant 65-year-old man, alert and oriented x 3, in no acute distress. HEENT: Unremarkable for acute abnormality. CHEST: Bilateral equal air entry, though diminished throughout. No crackles or wheezes are noted. HEART: S1, S2 normal. Regular rate and rhythm. No murmurs or gallops are noted. ABDOMEN: Soft, nontender, nondistended. No masses or organomegaly noted. EXTREMITIES: Unremarkable for acute abnormality. Greater than 30 minutes were spent on coordinating this discharge with greater than 50% in counseling and coordination of care, most of which in discussion with the patient and nursing regarding his care plan and progress. FINAL DIAGNOSIS: Acute hypoxic respiratory failure secondary to COVID pneumonia. ANAHI/DUKE BONILLA: ANAHI/ny TID: [id number]
[2021-03-17 15:00] VITALS: BP 102/54
[2021-03-17 19:00] VITALS: BP 130/70
[2021-03-17] MEDS: DULoxetine HCL 30 MG CAPSULE.DR PO SCH (21:26)
[2021-03-17] MEDS: INSULIN GLARGINE SYRINGE. SQ SCH (21:27)
[2021-03-17 23:00] VITALS: BP 128/77
[2021-03-18 03:00] VITALS: BP 131/73
[2021-03-18] MEDS: GABAPENTIN 400 MG CAPSULE. PO SCH (05:58)
[2021-03-18 07:00] VITALS: BP 136/74
[2021-03-18] MEDS: INSULIN LISPRO 300 UNITS/3 ML VIAL. SQ SCH ×4 (07:30→12:00)
--- NOTE | 2021-03-18 08:15 | PDOC ---
PULMONARY PROGRESS NOTES DATE: 03/18/21 TIME: 08:15 Subjective Patient feels better, no more short of breath Vitals Vital Signs Date Time Temp Pulse Resp B/P (MAP) Pulse Ox O2 Delivery O2 Flow Rate FiO2 03/18/21 03:00 98.1 77 16 131/73 (92) 92 98.1 03/17/21 20:00 Nasal Cannula 2.0 Comments Patient seen during the COVID-19 viral pandemic, visual inspection no distress rrr not utilizing accessory muscles no paroxysmal breathing pattern no rashes Labs Laboratory Tests Test 03/16/21 11:29 03/16/21 16:39 03/16/21 21:25 03/17/21 06:50 Glucose (Fingerstick) 226 mg/dL (70-99) 362 mg/dL (70-99) 256 mg/dL (70-99) White Blood Count 11.7 x10^3/uL (4.0-11.0) Red Blood Count 4.92 x10^6/uL (4.30-5.70) Hemoglobin 13.3 g/dL (13.0-17.5) Hematocrit 41.3 % (39.0-53.0) Mean Corpuscular Volume 84 fL (79-100) Mean Corpuscular Hemoglobin 27 pg (25-35) Mean Corpuscular Hemoglobin Concent 32 g/dL (31-37) Red Cell Distribution Width 15.2 % (11.5-14.5) Platelet Count 498 x10^3/uL (140-400) Neutrophils (%) (Auto) 82 % (31-73) Lymphocytes (%) (Auto) 10 % (24-48) Monocytes (%) (Auto) 9 % (0-9) Eosinophils (%) (Auto) 0 % (0-3) Basophils (%) (Auto) 0 % (0-3) Neutrophils # (Auto) 9.6 x10^3/uL (1.8-7.7) Lymphocytes # (Auto) 1.1 x10^3/uL (1.0-4.8) Monocytes # (Auto) 1.0 x10^3/uL (0.0-1.1) Eosinophils # (Auto) 0.0 x10^3/uL (0.0-0.7) Basophils # (Auto) 0.0 x10^3/uL (0.0-0.2) Sodium Level 141 mmol/L (136-145) Potassium Level 4.5 mmol/L (3.5-5.1) Chloride Level 107 mmol/L (98-107) Carbon Dioxide Level 26 mmol/L (21-32) Anion Gap 8 (6-14) Blood Urea Nitrogen 31 mg/dL (8-26) Creatinine 0.9 mg/dL (0.7-1.3) Estimated GFR (Cockcroft-Gault) 85.2 BUN/Creatinine Ratio 34 (6-20) Glucose Level 111 mg/dL (70-99) Calcium Level 7.6 mg/dL (8.5-10.1) Total Bilirubin 0.5 mg/dL (0.2-1.0) Aspartate Amino Transf (AST/SGOT) 17 U/L (15-37) Alanine Aminotransferase (ALT/SGPT) 22 U/L (16-63) Alkaline Phosphatase 131 U/L (46-116) Total Protein 5.6 g/dL (6.4-8.2) Albumin 1.9 g/dL (3.4-5.0) Albumin/Globulin Ratio 0.5 (1.0-1.7) Test 03/17/21 13:59 03/17/21 17:33 03/17/21 21:43 03/18/21 07:38 Glucose (Fingerstick) 251 mg/dL (70-99) 314 mg/dL (70-99) 288 mg/dL (70-99) 133 mg/dL (70-99) Laboratory Tests Test 03/17/21 13:59 03/17/21 17:33 03/17/21 21:43 03/18/21 07:38 Glucose (Fingerstick) 251 mg/dL (70-99) 314 mg/dL (70-99) 288 mg/dL (70-99) 133 mg/dL (70-99) Medications Active Scripts Medications Dose Route/Sig Max Daily Dose Days Date Category Dose Instructions Azithromycin Tablet (Azithromycin) 250 Mg Tablet 1 Pkg PO UD 5 03/06/21 Rx 2 the first day followed by 1 for days 2-5 Hydrocodone-Apap 5-325 (Hydrocodone Bit/Acetaminophen) 1 Tab Tablet 1 Tab PO PRN Q6HRS PRN 3 08/03/20 Rx Keflex (Cephalexin) 500 Mg Capsule 1 Cap PO TID 10 09/04/19 Rx [place] 5-325 Tablet (Acetaminophen/Hydrocodone Bitart) 1 Each Tablet 1 Tab PO PRN Q6HRS PRN 06/13/19 Rx Keflex (Cephalexin) 500 Mg Capsule 1 Cap PO TID 7 02/09/19 Rx Peridex (Chlorhexidine Gluconate) 15 Ml Mouthwash 15 Ml SWSP BID 7 02/09/19 Rx [place] teeth before using to prevent staining. Swish for approximately 30 seconds before spitting. Naproxen 500 Mg Tablet 1 Tab PO BID PRN 10 02/09/19 Rx Clopidogrel (Clopidogrel Bisulfate) 75 Mg Tablet 75 Mg PO DAILYWBKFT 30 08/30/18 Rx Viagra (Sildenafil Citrate) 100 Mg Tablet 1 Tab PO PRN DAILY 08/30/18 Reported Nystatin 15 Gm Powder 1 [place] TP BID 08/30/18 Reported Mupirocin Ointment (Mupirocin) 22 Gm Oint...g. 1 [place] TP DAILY 08/30/18 Reported Lisinopril 20 Mg Tablet 1 Tab PO DAILY 08/30/18 Reported Gabapentin 800 Mg Tablet 800 Mg PO Q8HRS 08/30/18 Reported Atorvastatin Calcium 80 Mg Tablet 1 Tab PO DAILY 08/30/18 Reported Janumet 50-1,000 Mg Tablet (Sitagliptin Phos/Metformin Hcl) 1 Each Tablet 1 Tab PO BID 11/05/17 Reported Pentoxifylline 400 Mg Tablet.er 400 Mg PO TID 11/05/17 Reported Cymbalta (Duloxetine Hcl) 30 Mg Capsule.dr 30 Mg PO QHS 11/05/17 Reported Glipizide 10 Mg Tablet 1 Tab PO BID 11/05/17 Reported Aspirin 81 Mg Tab.chew 1 Tab PO DAILY 01/02/15 Reported Impression . IMPRESSION: 1. Acute hypoxic respiratory failure secondary to COVID-19 viral pneumonia.//Acute exacerbation of COPD. 2. COVID-19 viral pneumonia, acute respiratory distress syndrome. 3. Coronary artery disease, status post coronary artery bypass grafting. 4. Diabetes. Plan . Better, discharged home with oxygen Follow-up in the office in 4 weeks FARHAT PRUITT MD Mar 18, 2021 08:15
[2021-03-18] MEDS: CHLORHEXIDINE 0.12% 15 ML MOUTHWASH. SWSP SCH (08:40)
[2021-03-18] MEDS: LISINOPRIL 20 MG TABLET PO SCH (08:41)
[2021-03-18] MEDS: DEXAMETHASONE SOD PHOS 4 MG/ML VIAL IVP SCH (08:41)
[2021-03-18] MEDS: CLOPIDOGREL BISULFATE 75 MG TABLET PO SCH (08:41)
[2021-03-18] MEDS: DOXYCYCLINE HYCLATE 100 MG TABLET PO SCH (08:41)
[2021-03-18] MEDS: LACTOBACILLUS RHAMNOSUS GG 1 CAPSULE. PO SCH (08:41)
[2021-03-18] MEDS: ASPIRIN CHEWABLE 81 MG TABLET. PO SCH (08:41)
[2021-03-18] MEDS: BENZONATATE 100 MG CAPSULE. PO SCH (08:41)
[2021-03-18] MEDS: ZINC SULFATE 220 MG CAPSULE. PO SCH (08:42)
[2021-03-18] MEDS: ASCORBIC ACID 1,000 MG TABLET PO SCH (09:42)
[2021-03-18 11:00] VITALS: BP 140/74
[2021-03-18] MEDS: ENOXAPARIN 40 MG/0.4 ML SYRINGE. SQ SCH (11:00)
--- NOTE | 2021-03-18 11:54 | PDOC ---
[facility] PROGRESS NOTE Date of Service DOS: DATE: 03/18/21 TIME: 11:53 Chief Complaint Chief Complaint acute hypoxic respiratory failure COVID+ pneumonia DM2, acute hyperglycemia acute weakness diarrhea History of Present Illness History of Present Illness 03/18 Seen examined at bedside. Is post discharge yesterday but was unable to due to poor 6-minute walk results. Notably improved this morning. Discharge today 4 L with exertion. 03/15/2021 Patient seen and examined On the commode off his oxygen currently but is supposed to be on 10 L Discussed with RN Chart reviewed 03/14/2021 Pt seen and examined Discussed with RN Chart reviewed Pt resting in bed, requires 12L O2 today Continue COVID protocol Added Norsvac due to high BP overnight Decreased Lantus to 1x daily bc patient not eating well, withheld humalog this AM 03/13/2021 Pt seen and examined Discussed with RN Chart reviewed Pt resting in bed, requires 15L O2 today Continue COVID protocol 03/12/2021 Pt seen and examined Discussed with RN Chart reviewed Pt resting in bed, NAD 03/11/2021 Pt seen and examined Discussed with RN Chart reviewed Continue COVID protocol with decadron, remdesivir, Vit C and Zinc increase the lantus and SSI and meal add percocet and Robitsussin with codeine he looks worse, weak, can barely eat, poor po intake, on IV fluids, blood sugar high, may transtion to PPN if that improved, Vitals/I&O Vitals/I&O: Vital Signs Date Time Temp Pulse Resp B/P (MAP) Pulse Ox O2 Delivery O2 Flow Rate FiO2 03/18/21 11:00 97.8 74 18 140/74 (96) 94 Nasal Cannula 97.8 03/18/21 08:00 2.0 I & O 03/17/21 03/17/21 03/18/21 15:00 23:00 07:00 Intake Total 300 ml Output Total 1250 ml Balance 300 ml -1250 ml Physical Exam General: Alert, Cooperative, moderate distress Abdomen: Soft Extremities: No clubbing, No edema Skin: No rashes, No significant lesion Labs Labs: Laboratory Tests Test 03/17/21 13:59 03/17/21 17:33 03/17/21 21:43 03/18/21 07:38 Glucose (Fingerstick) 251 mg/dL (70-99) 314 mg/dL (70-99) 288 mg/dL (70-99) 133 mg/dL (70-99) Assessment and Plan Assessmemt and Plan Problems Medical Problems: (1) COVID-19 Status: Acute (2) Pneumonia Status: Acute (3) Respiratory distress Status: Acute Comment Review of Relevant I have reviewed the following items saravanan (where applicable) has been applied. Justifications for Admission Other Justification ALICE TEJADA MD Mar 18, 2021 11:54
--- NOTE | 2021-03-18 14:08 | NUR ---
Discharge Note: VITA VILLAGOMEZ GALT Discharge instructions and discharge home medications reviewed with Patient and a copy given. All questions have been answered and understanding verbalized. The following instructions and handouts were given: Oxygen use and Covid-19 recovery Discontinued lines and drains: Right AC IV discontinued. Tip intact. Pressure and dressing applied. Patient tolerated well. Patient discharged to Home with .
== END 2021-03-18 14:11 | disposition home or self-care (01) | DRG 177 ==
LOC: ER 18:05 → 5 NORTH 21:10
PROVIDERS: ADMIT Internal Medicine; ATTEND Internal Medicine
PROC: XW033E5 Introduction of Remdesivir Anti-infective into Peripheral Vein, Percutaneous Approach, New Technology Group 5 (ICD-10-PCS; principal; 2021-03-10)
DX: U07.1 COVID-19 (principal); J12.82 Pneumonia due to coronavirus disease 2019; J96.01 Acute respiratory failure with hypoxia; J44.0 Chronic obstructive pulmonary disease with (acute) lower respiratory infection; J44.1 Chronic obstructive pulmonary disease with (acute) exacerbation; E11.65 Type 2 diabetes mellitus with hyperglycemia; E78.00 Pure hypercholesterolemia, unspecified; I10 Essential (primary) hypertension; I25.10 Atherosclerotic heart disease of native coronary artery without angina pectoris; Z82.49 Family history of ischemic heart disease and other diseases of the circulatory system; Z87.891 Personal history of nicotine dependence; Z95.1 Presence of aortocoronary bypass graft; Z99.81 Dependence on supplemental oxygen; G62.9 Polyneuropathy, unspecified; K21.9 Gastro-esophageal reflux disease without esophagitis
CPT/HCPCS: 36415; 71045; 71275; 80048; 80053; 82962; 83605; 83880; 84484; 85007; 85025; 85027; 87040; 87426; 87804; 93005; 94618; 96361; 96365; 96374; 96375; J0696; J1100; J1650; J1815; J3490; J7030; J7050; J7060; Q9967; 99284-25; 99285-25; G0378